=== PATIENT | male | born 1940 | race Caucasian/White ===

== ENCOUNTER 2019-05-01 06:44 | Inpatient (IN) | payer MEDICARE, SELFPAY ==
[2019-05-01] VITALS (15 sets, daily range): BP systolic 91–130; BP diastolic 51–78; PULSE 68–139; RESP 15–20; TEMP 36.4–36.9; O2SAT 88–98; BMI 41.6; BMI 40.5; BMI 40.6
--- NOTE | 2019-05-01 06:47 | EKG12_ITS ---
Test Reason : SOB Blood Pressure : / mmHG Vent. Rate : 087 BPM Atrial Rate : 087 BPM P-R Int : 152 ms QRS Dur : 096 ms QT Int : 372 ms P-R-T Axes : 000 -10 068 degrees QTc Int : 447 ms Sinus rhythm with Premature atrial complexes Otherwise normal ECG Confirmed by TYRONE OROZCO, PEDRO ([id number]), features editor CLIFTON SHELDON ([id number]) on 05/03/2019 10:02:20 AM Referred By: Liliya Pérez Confirmed By:PEDRO HANSEN MD
--- NOTE | 2019-05-01 06:47 | RAD_ITS ---
STUDY: X-RAY CHEST REASON FOR EXAM: Male, 79 years old. sob, heart racing TECHNIQUE: Single AP portable view of the chest. COMPARISON: None. FINDINGS: The lungs are hypoinflated. Mild right basilar airspace disease. Elevated left hemidiaphragm with atelectasis. There is mild cardiac enlargement. Normal mediastinum and erin. Normal visualized pulmonary arteries. Normal visualized aortic arch and descending thoracic aorta. Normal visualized thoracic spine. Normal visualized ribs, clavicles, and shoulders. There is no demonstrated abnormality of the visualized soft tissue structures of the upper abdomen. RAD/Chest 1 View (Portable) IMPRESSION: Hypoinflated lungs. Right basilar airspace disease. Elevated left hemidiaphragm with left basilar atelectasis. Electronically Signed: Juan Pablo Randall DO at 8:12 EST Tel , Service support ,
--- NOTE | 2019-05-01 06:49 | ED.DCSUM_ITS ---
- ER Visit Summary Date of Service: 05/01/19 Chief Complaint: Intermittent cough with shortness of breath. Recent accelerated heart rate. Patient denies chest pain. History of Present Illness: The patient is a 79 M history of hypertension, CLL which is in remission and gout. He is on no blood thinners. Denies any recent travel or surgery. States over the last 3 to 4 days has had intermittent cough. Exertional shortness of breath but no chest pain whatsoever. And on the way to the hospital the paramedics found that he was in new onset A. fib. He has had irregular heartbeats before in the past but they have never caught or diagnosed him with A. fib. He denies any leg pain or swelling. No history of thyroid disease. Patient states he has had increased swelling primarily in his ankles and feet which he has had in the past and has been using his 's oxygen which helps him tremendously. Physical Examination: Older male no acute distress currently vital signs are stable afebrile. His initial blood pressure is 130/78. His pulse ox is 95% on room air no signs of hypoxia. H EENT exam unremarkable. Neck nontender. No lymphadenopathy. No thyromegaly. Lungs clear to auscultation bilaterally. Heart irregularly irregular rate about 85-90. No murmur. Chest were nontender. Abdomen soft nontender. Normal bowel sounds no peritoneal signs. Patient is moving all 4 extremities. Calves are nontender without edema or cords. Upper and lower extremities are neurovascular intact. Neurologically is awake and alert with no focal motor deficits. Answering questions and following commands. Test Results: Squad EKG shows suspected A. fib with irregular rhythm and lack of P waves there is significant artifact. A. fib with a heart rate of 96 with no acute signs of AL or ischemia. Emergency department EKG shows sinus rhythm with PACs. Clearly on the rhythm strip there is P waves. On the twelve-lead there is areas that look like sinus rhythm with PACs and other areas that are regular without PACs consistent with A. fib CBC normal white count 9. Hemoglobin 13. BMP is unremarkable with a normal gap and creatinine. INR is pending. TSH is normal at 1.3 and troponin is normal. Emergency Department Course and Treatment: Older male presents via squad. The paramedics EKG shows A. fib with a rate of around 96 bpm but no signs of AL nor ischemia. There is artifact because it is a transport EKG. Treatment Plan: Patient remains stable at 07 20 3 AM. He is doing well. His rate is primarily been in the 80s. It looks like he goes in and out of A. fib at times a sinus rhythm with PACs that are times the P waves appear to disappear and his rhythm becomes irregular. I will speak to the hospitalist the labs were not all back yet the patient be turned over to the a.m. physician to finish the disposition. Disposition: Admission Impression: New onset A. fib History of hypertension, gout and CLL in remission Pedal edema This note was generated with [employer] dictation software. It may contain incorrect words, spelling, and punctuation that were not noted in review of the chart prior to signing ED Disposition - Plan for ED Patient: Referrals: [facility] Doctor,Out of [Primary Care Provider] -
[2019-05-01 07:04] LABS: Absolute Lymphocyte Count 4.45 X10^3/uL (0.83-4.51); Absolute Neutrophil Count 3.8 X10^3/uL (2.0-7.7); Basophil# 0.03 X10^3/uL; Basophil% 0.3 % (0-1); Eosinophil# 0.12 X10^3/uL; Eosinophils% 1.3 % (0-5); Hematocrit 43.1 % (40-54); Hemoglobin 13.6 g/dL (13.0-16.5); Lymphocyte # 4.45 X10^3/ul (4.0); Lymphocyte % 48.6 % (19-41); Mean Corp Hgb Conc 31.6 g/dL (32-36); Mean Corpuscular Hgb 32.1 pg (27.0-32.0); Mean Corpuscular Volume 101.7 fL (80-94); Mean Platelet Vol. 10.4 fl (6.2-12.0); Monocyte% 7.7 % (0-10); NRBC Flagged by Analyzer 0 % (0-5); Neutrophil # 3.83 X10^3/uL (2.7-7.7); Neutrophil % 41.9 % (47-70); Platelet Count 139 K/mm3 (150-450); RBC Distribution Width CV 14.3 % (11.6-14.6); RBC Distribution Width SD 53.4 fl (35.1-43.9); Red Blood Count 4.24 M/mm3 (4.6-6.2); White Blood Count 9.2 K/mm3 (4.4-11.0)
[2019-05-01 07:26] LABS: Anion Gap 3 (5-15); BUN 15 mg/dL (7-18); BUN/Creat Ratio 15.9 RATIO (10-20); Calcium,Total 9.1 mg/dL (8.5-10.1); Chloride 107 mmol/L (98-107); Creatinine, Serum 0.94 mg/dL (0.70-1.30); EST Glomerular Filtration Rate 81 mL/min (>60); Est Glom Filt Rate - Afr Amer 99 mL/min (>60); Estimated Creatinine Clearance 59.63 ml/min; Glucose 93 mg/dL (74-106); Potassium 4.2 mmol/L (3.5-5.1); Sodium Level 144 mmol/L (136-145); Thyroid Stim Hormone (TSH) 1.43 uIU/mL (0.358-3.74)
[2019-05-01 07:42] LABS: Prothrombin Time (Protime)PT. 13.3 SECONDS (11.7-14.9)
--- NOTE | 2019-05-01 09:22 | ECHOCS_ITS ---
Reason For Study: Afib, Aflutter Procedure This was a 2D Doppler, Color Flow transthoracic echocardiogram. The study was technically difficult. Contrast injection was performed. Exam performed portable in patient room. Left Ventricle Based upon the 2D echocardiographic and contrast enhanced images obtained there appears to be grossly normal left ventricular size, wall motion, and systolic function. The estimated ejection fraction is 55 %. Unable to assess diastolic dysfunction. Right Ventricle Based upon the 2D echocardiographic images obtained there appears to be grossly normal right ventricular size and systolic function. Atria The left atrium is mildly enlarged. Normal right atrium. No doppler evidence for ASD. Mitral Valve There is mild mitral annular calcification. Mitral valve not well visualized. Trivial mitral valve insufficiency. Tricuspid Valve The tricuspid valve is not well visualized. Trivial tricuspid valve insufficiency. Unable to estimate RV systolic pressure/pulmonary artery pressure due to technically difficult study. Aortic Valve The aortic valve is not well visualized. Mild focal aortic valve calcification. Pulmonic Valve The pulmonic valve is not well visualized. Great Vessels Normal sized aortic root. Pericardium/Pleural No pericardial effusion. Medication Diluted definity 4ml given slow IV push to enhance endocardial definition. MMode/2D Measurements & Calculations LVIDd: 5.3 cm IVSd: 1.2 cm Ao root diam: 3.3 cm LVIDs: 3.9 cm LVPWd: 1.2 cm FS: 26.1 % LAV(MOD-bp): 78.3 ml LA A4 area: 23.3 cm2 LA dimension(2D): 4.7 cm LAV(MOD-bp) Indexed: 33.9 ml/m2 LAV(MOD-sp2): 84.9 ml LAV(MOD-sp4): 71.7 ml Doppler Measurements & Calculations MV E max stevo: 97.9 cm/sec Lat Peak E' Stevo: 8.1 cm/sec Med Peak E' Stevo: 7.0 cm/sec E/E' lat: 12.1 E/E' med: 14.0 Ao V2 max: 147.3 cm/sec LV V1 max: 116.3 cm/sec PA V2 max: 103.1 cm/sec Ao max P.7 mmHg LV V1 max P.4 mmHg Ao V2 mean: 99.7 cm/sec Ao mean P.5 mmHg Ao V2 VTI: 24.0 cm Interpretation Summary The study was technically difficult. Contrast injection was performed. Based upon the 2D echocardiographic and contrast enhanced images obtained there appears to be grossly normal left ventricular size, wall motion, and systolic function. The estimated ejection fraction is 55 %. The left atrium is mildly enlarged. There is mild mitral annular calcification. Trivial mitral valve insufficiency. Trivial tricuspid valve insufficiency. Mild focal aortic valve calcification. Unable to estimate RV systolic pressure/pulmonary artery pressure due to technically difficult study. Unable to assess diastolic dysfunction. Ordering Physician: Liliya Pérez Referring Physician: Liilya Pérez Performed By: Angeline Lynne, PEDRO LUIS, RVT
[2019-05-01 09:41] LABS: Magnesium 2.2 mg/dL (1.6-2.6)
[2019-05-01 09:58] LABS: BNP,B-Type NATRIURETIC PEPTIDE 142.9 pg/mL (0-100)
--- NOTE | 2019-05-01 10:44 | PCM.HP.STD ---
Problem List (1) Acute CHF (congestive heart failure) Status: Acute (2) Paroxysmal A-fib Status: Suspected (3) Chronic congestive heart failure Status: Chronic (4) Gout Status: Chronic (5) Chronic lymphoid leukemia in remission Status: Chronic (6) Benign hypertension Status: Chronic History of Present Illness Date of Admission: 05/01/19 Chief Complaint: Shortness of breath. The patient is a 79 year old M patient with past medical history as mentioned above presented to the emergency because of shortness of breath, high pulse rate and low pulse ox. Patient stated that his symptoms started around 5 days ago with shortness of breath, it comes on with moderate activity, aggravated by more activity, relieved by rest and by using his 's oxygen, associated with mild dry cough without sputum production as well as increasing bilateral leg edema. He mentioned in the last couple of days, he has been getting short of breath even at rest and his legs continue to swell up. Patient mentioned that he lives with his at the assisted living and he has been monitoring his vital signs and pulse oximeter. He mentioned that when he gets short of breath, his pulse ox is in the high 80s percent, the lowest was 80% on room air. He has been using his 's oxygen and he feels better. He stated that his heart rate has been fluctuating significantly when he gets short of breath, it goes up to 147/min and goes down to 40s per minute. He reported intermittent dizzy spells but he denied syncope or presyncope. He denied chest pain or palpitation. In the emergency department, his vital signs are stable, he required small amount of oxygen at 1.5 L and his pulse ox was 94%. His routine blood work was remarkable for platelet count of 139,000, otherwise normal. EKG that was done by squad revealed A. fib, no P waves and looked irregular. EKG that was done in the ED revealed normal sinus rhythm with PACs, no acute segment changes. His troponin was negative. BNP was elevated at 142. TSH was normal. Chest x-ray revealed cardiomegaly, elevated right hemidiaphragm and pulmonary vascular congestion. He is being admitted for acute CHF and cardiac arrhythmia probably new onset paroxysmal atrial fibrillation. Past Medical History Past Medical History (Chronic Problems): Chronic Problems Chronic congestive heart failure (Chronic) Obesity (Chronic) Gout (Chronic) Chronic lymphoid leukemia in remission (Chronic) Benign hypertension (Chronic) Allergies Penicillins Allergy (Severe, Verified 05/01/19 06:48) Hives Home Medications: Ambulatory Orders Medication Instructions Recorded Allopurinol [Zyloprim] 200 mg PO DAILY 01/17/13 Cyanocobalamin (Vitamin B-12) 100 mcg SL DAILY 01/17/13 [B-12] Furosemide [Lasix] 20 mg PO DAILY 01/17/13 Lisinopril [Zestril] 10 mg PO DAILY 01/17/13 Metoprolol Tartrate [Lopressor] 25 mg PO BID 01/17/13 Multivitamins,Therapeutic 1 tablet PO DAILY@0800 #30 tablet 01/20/13 [Multivitamin] Albuterol Aerosols [Ventolin 2.5 mg INHALATION BID PRN PRN 05/01/19 Aerosols] Cholecalciferol (Vitamin D3) 2,000 unit PO DAILY 05/01/19 [Vitamin D3] Fluticasone 0.05% [Flonase Nasal 1 spray NASAL DAILY 05/01/19 [place]] Surgical History: total knee arthroplasty, - - Amputation of the left great toe. Psychiatric History: No pertinent psych hx Lives: - - Lives with at the assisted living. Smoking Status: Former smoker Alcohol: Occasional Drugs: None - *Family History Maternal History Items: No pertinent history Paternal History Items: No pertinent history Review of Systems Constitutional: Reports: Weakness. Denies: Anorexia, Chills, Fever Eyes: Denies: Blurred vision, Double vision, Drainage, Redness HEENT: Denies: Difficulty Hearing, Ear Pain, Eye Pain, Nasal Congestion, Sore Throat Cardiovascular: Reports: Edema, Light Headedness. Denies: Chest Pain, Chest Pressure, Chest Tightness, Heaviness, Orthopnea, Palpitations, Paroxysmal Noc. Dyspnea, Syncope Respiratory: Reports: Cough, Shortness of Breath, Shortness of breath at rest, Shortness of breath upon exertion. Denies: Pleuritic Pain, Sputum production, Wheezing Gastrointestinal: Denies: Abdominal Pain, Constipation, Diarrhea, Nausea, Vomiting Genitourinary: Denies: Dysuria, Frequency, Hematuria Musculoskeletal: Denies: Arm Pain, Back Pain, Foot Pain Skin: Denies: Dryness, Rash Neurological: Denies: Balance problems, Double vision, Change in Speech, Headaches, Incoordination, Numbness Psychiatric: Denies: Anxiety, Depression Endocrine: Denies: Change in Body Habitus, Polydipsia, Polyuria VTE Information - Inpt Only VTE Present on Admission: No VTE Mechan Device Prophylaxis: None VTE Pharm Prophylaxis ordered?: No Patient Problems: Active and Suspected Problems Acute CHF (congestive heart failure) (Acute) Paroxysmal A-fib (Suspected) - Physical Exam Vitals/I&O's: Vital Signs Temp Pulse Resp BP Pulse Ox 97.5 F L 73 20 H 127/74 H 94 05/01/19 09:32 05/01/19 09:32 05/01/19 09:32 05/01/19 09:32 05/01/19 09:32 Oxygen Flow Rate (L/min) 1.5 Oxygen Delivery Method Nasal Cannula Weight: 266 lb 12.149 oz Body Mass Index (BMI) 40.5 General: Alert, Oriented x3, Cooperative, - - Minimally short of breath. HEENT: Atraumatic, PERRLA, EOMI, Normocephalic Oral: Moist Mucosa, No Gingival or Mucosal Lesions/ Ulcerations Neck: Supple, No JVD, Negative Carotid Bruits, Trachea Midline, Thyroid Normal Size and Texture Lungs: No rhonchi, No wheeze, Diminished, Rales, Short of Breath, - - Markedly decreased breath sounds bilateral, faint crackles. Cardiovascular: Normal S1, Normal S2, No murmurs, PMI Normal, Irregular Rate Abdomen: Bowel Sounds Present, Soft, Non Tender, Non-Distended, No Hepato-splenomegaly, Obese Extremities: No clubbing, No cyanosis, Edema - + Edema. Skin: No rashes, No breakdown Lymphatic: No Cervical, Supraclavicular, or Inguinal Adenopathy Neurological: Cranial nerves II-XII grossly intact, Motor Exam 5/5 strength throughout Psych/Mental Status: Normal Affect, Appropriate, Alert and oriented to time, place, person, mood and affect Laboratory Results 05/01/19 06:50: WBC 9.2, RBC 4.24 L, Hgb 13.6, Hct 43.1, MCV 101.7 H, MCH 32.1 H, MCHC 31.6 L, RDW Std Deviation 53.4 H, RDW Coeff of Timothy 14.3, Plt Count 139 L, MPV 10.4, Immature Gran % (Auto) 0.200, Neut % (Auto) 41.9 L, Lymph % (Auto) 48.6 H, [place] % (Auto) 7.7, Eos % (Auto) 1.3, Baso % (Auto) 0.3, Absolute Neuts (auto) 3.8, Absolute Lymphs (auto) 4.45, Nucleated RBC % 0 05/01/19 06:50: PT 13.3, INR 1.0 05/01/19 06:50: Sodium 144, Potassium 4.2, Chloride 107, Carbon Dioxide 34.0 H, Anion Gap 3 L, BUN 15, Creatinine 0.94, Estim Creat Clear Calc 59.63, Est GFR (MDRD) Af Amer 99, Est GFR (MDRD) Non-Af 81, BUN/Creatinine Ratio 15.9, Glucose 93, Calcium 9.1, Troponin I < 0.015, TSH 1.43 05/01/19 06:50: Magnesium 2.2 05/01/19 06:50: B-Natriuretic Peptide 142.9 H 05/01/19 10:12: Troponin I < 0.015 Clinical Impression(s) from Imaging Studies Chest X-Ray 05/01/19 06:47 IMPRESSION: Hypoinflated lungs. Right basilar airspace disease. Elevated left hemidiaphragm with left basilar atelectasis. Electronically Signed: Juan Pablo Randall DO at 8:12 EST Tel , Service support , Current Medications Acetaminophen (Tylenol) 650 mg PO Q6H PRN PRN PRN Reason: Pain Score 1-3/Temp > 100.7 F Allopurinol (Zyloprim) 100 mg PO DAILY JEROME Furosemide (Lasix) 40 mg IV BID@1000,1800 JEROME Sodium Chloride () 250 mls @ 15 mls/hr IV .[id number] PRN PRN Reason: Saline Flush Sodium Chloride () 250 mls @ 15 mls/hr IV .[id number] PRN PRN Reason: Additional IVPB Infusion Lisinopril (Zestril) 10 mg PO DAILY JEROME Metoprolol Tartrate (Lopressor (Beta Mike)) 50 mg PO BID JEROME Ondansetron HCl (Zofran) 4 mg IV Q8H PRN PRN PRN Reason: NAUSEA/VOMITING Senna/Docusate Sodium (Senokot-S, Evelyn-Colace) 2 tablet PO BID PRN PRN PRN Reason: Constipation Sodium Chloride () 10 - 40 ml IV UD PRN PRN Reason: SALINE FLUSH Zolpidem Tartrate (Ambien (Generic)) 5 mg PO QHS PRN PRN PRN Reason: INSOMNIA Assessment/Plan All Active Problems Acute CHF (congestive heart failure) (Acute) This is an 79 years old male patient presented to the emergency room because of exertional shortness of breath, low pulse oximeter and fast heart rate, found to have acute CHF in addition to suspected paroxysmal atrial fibrillation and he is being admitted for evaluation and treatment. #1 acute on chronic congestive heart failure: Unspecified. This is based on symptoms of exertional shortness of breath, leg edema, chest x-ray findings and elevated BNP as well as history of chronic CHF. Chest x-ray reviewed as well as EKG. Troponin is negative. Plan: Admit to PCU, cardiac monitoring, serial cardiac enzymes, repeat EKG tomorrow morning, 2D echocardiogram, start IV Lasix for diuresis, continue lisinopril, increase metoprolol to 50 mg p.o. twice daily, input output chart, fluid restriction to less than 1500 cc daily, cardiology consult, PT OT evaluation and treatment. #2 cardiac arrhythmia/suspected new onset paroxysmal atrial fibrillation: Both EKG that was done by squad as well as in the ED reviewed. EKG from the ED revealed normal sinus rhythm. Patient has been having excellent heart rate, it goes up to 147 and down to 40s on pulse oximeter at home. Plan: Cardiac monitoring, repeat EKG tomorrow morning, 2D echocardiogram, metoprolol 50 mg p.o. twice daily for rate control, start Lovenox twice daily for anticoagulation, check serum magnesium. #3 hypertension: Blood pressure stable, continue lisinopril and metoprolol as above, IV Lasix as above. 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 #6 chronic lymphocytic leukemia: In remission, stable. Platelet count is 139,000, other blood counts are normal. #7 DVT prophylaxis: Patient will be on therapeutic Lovenox twice daily. This note was generated with Dragon dictation software. It may contain incorrect words, spelling, and punctuation that were not noted in checking the note before signing. Code Visit Inpatient E&M: 87745 Init Hosp L3
[2019-05-01] MEDS: 0.9% Saline Lock 10 ML Syringe IV ×2 (10:59→17:05)
[2019-05-01] MEDS: Furosemide 40 MG/4 ML Vial IV ×2 (10:59→17:05)
[2019-05-01] MEDS: Lisinopril 10 MG Tablet PO (10:59)
[2019-05-01] MEDS: Metoprolol Tartrate 50 MG Tablet PO ×2 (10:59→21:19)
[2019-05-01] MEDS: Enoxaparin 120 MG/0.8 ML Syringe SC ×2 (13:36→21:19)
--- NOTE | 2019-05-01 14:09 | CON.PCM_ITS ---
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 The patient believes he was evaluated in the hospital in the past by Dr. Kraus. To the best of his knowledge he recalls a noninvasive evaluation and medical treatment. He states he has had no outpatient cardiovascular follow-up since that time. He states he does have an outpatient cardiovascular appointment to see Dr. Kraus later this month. In the meantime he states he has been noticing episodes at home, when using his 's O2 monitor, of having intermittent episodes of rapid heart rates and decreased oxygen status. He states he has borrowed his 's oxygen at home which helps his heart rate and his oxygen level and helps him feel better. Based upon his ongoing issues he presented to the emergency department for further evaluation and care. He was brought to the hospital by the EMS system and per the medical records available for review was reported by the EMS system of having documentation of paroxysmal atrial fibrillation. He states he was unable to sense his heart rate change. He notes his main complaint has been shortness of breath and dyspnea both at rest and with exertion. He is also noted worsening lower extremity peripheral pitting edema. He denies any chest discomfort and states he has had no near syncope or syncope. He has had cardiac enzymes performed. They have been negative. A BNP level was elevated at approximately 142. An ECG demonstrated sinus rhythm with PACs. His chest x-ray suggested on preliminary evaluation diminished inspiratory effort and an elevated left hemidiaphragm. There was some concern of potential increased pulmonary vascularity. He has been placed on medical management has included rate control therapy, diuretic therapy, and anticoagulant therapy with subcutaneous Lovenox. [] Past Medical History Allergies/Adverse Reactions: Allergies Penicillins Allergy (Severe, Verified 05/01/19 06:48) Hives Home Medications: Ambulatory Orders Medication Instructions Recorded Allopurinol [Zyloprim] 200 mg PO DAILY 01/17/13 Cyanocobalamin (Vitamin B-12) 100 mcg SL DAILY 01/17/13 [B-12] Furosemide [Lasix] 20 mg PO DAILY 01/17/13 Lisinopril [Zestril] 10 mg PO DAILY 01/17/13 Metoprolol Tartrate [Lopressor] 25 mg PO BID 01/17/13 Multivitamins,Therapeutic 1 tablet PO DAILY@0800 #30 tablet 01/20/13 [Multivitamin] Albuterol Aerosols [Ventolin 2.5 mg INHALATION BID PRN PRN 05/01/19 Aerosols] Cholecalciferol (Vitamin D3) 2,000 unit PO DAILY 05/01/19 [Vitamin D3] Fluticasone 0.05% [Flonase Nasal 1 spray NASAL DAILY 05/01/19 [place]] Past Medical History (Chronic Problems): Chronic Problems Chronic congestive heart failure (Chronic) Obesity (Chronic) Gout (Chronic) Chronic lymphoid leukemia in remission (Chronic) Benign hypertension (Chronic) Surgical History: total knee arthroplasty, - - Amputation of the left great toe. Psychiatric History: No pertinent psych hx - *Family History Maternal History Items: No pertinent history Paternal History Items: No pertinent history Lives: Spouse/ Significant Other, - - Lives with at the assisted living. Smoking Status: Former smoker Alcohol: Occasional Drugs: None Review of Systems - Review of Systems General: Denies: Fever, Night Sweats, Fatigue Cardiovascular: Reports: Shortness of Breath, Shortness of Breath at Rest, Shortness of Breath with Exertion, Peripheral Edema. Denies: Chest Discomfort, Orthopnea, PND, Palpitations, Lightheadedness, Dizziness, Near Syncope, Syncope Respiratory: Reports: Shortness of Breath. Denies: Cough, Sputum Production, Hemoptysis Gastrointestinal: Denies: Hematemesis, Hematochezia, Melena Genitourinary: Denies: Dysuria, Hematuria Objective: Vital Signs Temp Pulse Resp BP Pulse Ox 97.5 F L 86 20 H 127/74 H 92 05/01/19 09:32 05/01/19 11:05 05/01/19 09:32 05/01/19 09:32 05/01/19 12:02 Oxygen Flow Rate (L/min) 2 Oxygen Delivery Method Nasal Cannula Weight: 266 lb 12.149 oz Body Mass Index (BMI) 40.5 Intake and Output for Last 24 Hours 04/29/19 04/30/19 05/01/19 23:59 23:59 23:59 Intake Total 240 / 240 Output Total 200 / 200 Balance 40 / 40 05/01/19 06:50: WBC 9.2, RBC 4.24 L, Hgb 13.6, Hct 43.1, MCV 101.7 H, MCH 32.1 H , MCHC 31.6 L, Plt Count 139 L, MPV 10.4, Immature Gran % (Auto) 0.200, Neut % (Auto) 41.9 L, Lymph % (Auto) 48.6 H, [place] % (Auto) 7.7, Eos % (Auto) 1.3, Baso % (Auto) 0.3, Absolute Neuts (auto) 3.8, Nucleated RBC % 0 05/01/19 06:50: PT 13.3, INR 1.0 05/01/19 06:50: Sodium 144, Potassium 4.2, Chloride 107, Carbon Dioxide 34.0 H, Anion Gap 3 L, BUN 15, Creatinine 0.94, Est GFR (MDRD) Af Amer 99, Est GFR (MDRD) Non-Af 81, BUN/Creatinine Ratio 15.9, Glucose 93, Calcium 9.1, Troponin I < 0.015 05/01/19 06:50: Magnesium 2.2 05/01/19 06:50: B-Natriuretic Peptide 142.9 H 05/01/19 10:12: Troponin I < 0.015 05/01/19 12:50: Troponin I < 0.015 Rhythm: Sinus rhythm; PACs EKG: As noted above CXR: As noted above: Please see official report Assessment/Plan 1. Atrial fibrillation The patient has been reported as having findings compatible with atrial fibrillation-paroxysmal. It is unclear as to the etiology although contributing factors may include the patient's age as well as a history of hypertension and previous cardiovascular disease superimposed upon other noncardiac related issues yet to be defined. At the present time he appears to be in sinus rhythm. He is continuing rate control therapy and anticoagulant therapy. Depending upon his clinical course he may need consideration for additional therapy such as antiarrhythmic therapy in an attempt to maintain sinus rhythm. He is continuing evaluation which will include a future echocardiogram to fur ther assess his cardiac anatomy and function. 2. Congestive heart failure The patient appears to have findings compatible with CHF. It is unclear at this time whether this is systolic or diastolic mediated. At the moment he is being followed. He has been placed on medical therapy with diuretic therapy. He will have an echocardiogram to further assess his left ventricular wall motion and systolic function as well as hopefully his diastolic function. As his clinical course progresses he may need further noninvasive or invasive cardiovascular evaluation-once he is able to lie supine and breathe comfortably. 3. Hypertension His blood pressure will be followed. His medications will be adjusted over time. 4. CLL He has a reported history of CLL-in remission. He will be followed by internal medicine for further evaluation care as needed. 5. Obesity Unfortunately he is obese. He has been counseled in the past on dietary measures and activity measures as well as control of his other medical conditions to try and bring his weight under better control. Comment: The patient's case was discussed and reviewed with the patient, his family members present, and Dr. Pérez. This note was generated using a voice recognition system and there may be incorrect words, spelling or punctuation that were not noted when reviewing the office note prior to saving.
--- NOTE | 2019-05-01 23:17 | NURSING ---
MONITOR ALARMING VTACH: PT ASLEEP IN BED, AROUSED EASILY TO VERBAL STIMULI AND DENIED C/O CP, PALPITATIONS OR SOB. 91/51, 68, 96% 2L N/C. AFIB
[2019-05-02] VITALS (16 sets, daily range): BP systolic 109–136; BP diastolic 55–80; PULSE 66–102; RESP 15–18; TEMP 36.5–37; O2SAT 92–97
--- NOTE | 2019-05-02 05:55 | EKG12_ITS ---
Test Reason : AM Blood Pressure : / mmHG Vent. Rate : 076 BPM Atrial Rate : 076 BPM P-R Int : 188 ms QRS Dur : 090 ms QT Int : 390 ms P-R-T Axes : 021 -02 062 degrees QTc Int : 438 ms Sinus rhythm with marked sinus arrhythmia Otherwise normal ECG When compared with ECG of 01-MAY-2019 06:53, MANUAL COMPARISON REQUIRED, DATA IS UNCONFIRMED Confirmed by TYRONE OROZCO, PEDRO ([id number]), legal editor CLIFTON SHELDON ([id number]) on 05/03/2019 10:37:45 AM Referred By: Liliya Pérez Confirmed By:PEDRO HANSEN MD
[2019-05-02 06:00] LABS: Absolute Lymphocyte Count 4.77 X10^3/uL (0.83-4.51); Absolute Neutrophil Count 3.8 X10^3/uL (2.0-7.7); Basophil# 0.02 X10^3/uL; Basophil% 0.2 % (0-1); Eosinophil# 0.15 X10^3/uL; Eosinophils% 1.6 % (0-5); Hematocrit 42.2 % (40-54); Hemoglobin 12.9 g/dL (13.0-16.5); Lymphocyte # 4.77 X10^3/ul (4.0); Lymphocyte % 49.9 % (19-41); Mean Corp Hgb Conc 30.6 g/dL (32-36); Mean Corpuscular Hgb 31.5 pg (27.0-32.0); Mean Corpuscular Volume 102.9 fL (80-94); Mean Platelet Vol. 9.9 fl (6.2-12.0); Monocyte# 0.81 X10^3/uL; Monocyte% 8.5 % (0-10); NRBC Flagged by Analyzer 0 % (0-5); Neutrophil # 3.76 X10^3/uL (2.7-7.7); Neutrophil % 39.4 % (47-70); Platelet Count 132 K/mm3 (150-450); RBC Distribution Width CV 14.3 % (11.6-14.6); RBC Distribution Width SD 54.1 fl (35.1-43.9); White Blood Count 9.6 K/mm3 (4.4-11.0)
[2019-05-02 06:42] LABS: AST(SGOT) 18 U/L (15-37); Alanine Aminotransfer ALT/SGPT 20 U/L (16-61); Alkaline Phosphatase 78 U/L (45-117); Anion Gap 3 (5-15); BUN 18 mg/dL (7-18); BUN/Creat Ratio 21.1 RATIO (10-20); Calcium,Total 9.1 mg/dL (8.5-10.1); Chloride 104 mmol/L (98-107); Cholesterol 151 mg/dL (200); Creatinine, Serum 0.86 mg/dL (0.70-1.30); EST Glomerular Filtration Rate 91 mL/min (>60); Est Glom Filt Rate - Afr Amer 111 mL/min (>60); Estimated Creatinine Clearance 65.17 ml/min; Globulin 3.2 g/dL (2.2-4.2); Glucose 89 mg/dL (74-106); High Density Lipoprotein 32 mg/dL; Magnesium 2.3 mg/dL (1.6-2.6); Potassium 3.9 mmol/L (3.5-5.1); Protein, Total 6.2 g/dL (6.4-8.2); Sodium Level 142 mmol/L (136-145); Triglycerides 146 mg/dL; Very Low Density Lipoprotein 29 mg/dL (5-40)
--- NOTE | 2019-05-02 07:45 | PN.CARD_ITS ---
Subjectve: Patient seen and evaluated. Appears to be doing quite well at this time. Objective: Vital Signs Temp Pulse Resp BP Pulse Ox 98.1 F 80 15 136/55 H 96 05/02/19 05:00 05/02/19 06:52 05/02/19 06:12 05/02/19 05:00 05/02/19 05:00 Oxygen Flow Rate (L/min) 2 Oxygen Delivery Method Nasal Cannula Weight: 266 lb 12.149 oz Body Mass Index (BMI) 40.5 Intake and Output for Last 24 Hours 04/30/19 05/01/19 05/02/19 23:59 23:59 23:59 Intake Total 480 / 680 440 / 440 Output Total 400 / 1500 1100 / 1100 Balance 80 / -820 -660 / -660 General: Awake, Alert, Oriented x 3 HEENT: PERRL, EOMI, Sclera Non Icteric Neck: Supple, Good ROM, No Lymph Node Enlargement Lungs: Clear to auscultation Cardiovascular: Regular Rhythm, Normal S1, Normal S2, No Murmurs, No Rubs, No Gallops Vascular: No Carotid Bruits, Normal Femoral Pulses, Normal Radial Pulses, Normal Dorsalis Pedal Pulse, Normal Posterior Tibial Pulses Abdomen: Bowel Sounds Present, Soft, Non Tender, No HSM, No Organomegaly Extremities: No Cyanosis, No Clubbing, No edema Musculoskeletal: No Erythema Skin: No Rashes Lymphatic: No Lymph Node Enlargement Neurological: No Focal Motor or Sensory Deficit Psych/Mental Status: Appropriate 05/01/19 06:50: Magnesium 2.2 05/01/19 06:50: B-Natriuretic Peptide 142.9 H 05/01/19 10:12: Troponin I < 0.015 05/01/19 12:50: Troponin I < 0.015 05/02/19 05:47: WBC 9.6, RBC 4.10 L, Hgb 12.9 L, Hct 42.2, MCV 102.9 H, MCH 31.5, MCHC 30.6 L, Plt Count 132 L, MPV 9.9, Immature Gran % (Auto) 0.400, Neut % (Auto) 39.4 L, Lymph % (Auto) 49.9 H, [place] % (Auto) 8.5, Eos % (Auto) 1.6, Baso % (Auto) 0.2, Absolute Neuts (auto) 3.8, Nucleated RBC % 0 05/02/19 05:47: Sodium 142, Potassium 3.9, Chloride 104, Carbon Dioxide 35.0 H, Anion Gap 3 L, BUN 18, Creatinine 0.86, Est GFR (MDRD) Af Amer 111, Est GFR (MDRD) Non-Af 91, BUN/Creatinine Ratio 21.1 H, Glucose 89, Calcium 9.1, Magnesium 2.3, Total Bilirubin 0.60, Direct Bilirubin 0.20, Triglycerides 146, Cholesterol 151, LDL Cholesterol 90, VLDL Cholesterol 29, HDL Cholesterol 32 L Rhythm: EKG: ECHO: Stress Test: Cardiac Cath: PCI: CT Surgery: Holter monitor: EPS: PPM: CXR: Chest CT Scan: Medical Necessity - Tobacco Use Smoking Status: Former smoker Assessment/Plan 1. Paroxysmal atrial fibrillation * Patient appears to have paroxysms of atrial fibrillation. My recommendation at this time will be to obtain an echocardiogram to assess his left ventricular function. * Would recommend anticoagulation as well as beta-yohan * Would also recommend that we place him on an antiarrhythmic with amiodarone 200 mg twice a day. * 2. Hypertension * His blood pressure appears to be under good control at this particular time and I would not recommend we make any other changes. * 3. Mild congestive heart failure * The above likely secondary to diastolic dysfunction as well as paroxysms of atrial fibrillation. * Would obtain echocardiogram * Continue beta-yohan * Diuresis with oral Lasix * Attempt to maintain sinus rhythm. Depending on his response to the above further recommendations will be made. He may need at some point to undergo a pharmacologic myocardial perfusion stress test. * * Thank you for allowing me to participate in the care of your patient. Please don't hesitate to call if any issues arise
--- NOTE | 2019-05-02 08:57 | PN_ITS ---
Patient Problems: Active and Suspected Problems Acute CHF (congestive heart failure) (Acute) Paroxysmal A-fib (Suspected) Subjective: Chief complaint: Follow-up after admission for new onset paroxysmal A. fib and acute probably diastolic CHF. Patient seen and examined. No acute events overnight. Shortness of breath improved, denies chest pain. Denied palpitation, dizziness or lightheadedness. He has been ambulating without any symptoms. Remained on oxygen, other vital signs are stable. - Physical Exam Vitals/I&O's: Vital Signs Temp Pulse Resp BP Pulse Ox 98.1 F 80 15 136/55 H 97 05/02/19 05:00 05/02/19 06:52 05/02/19 06:12 05/02/19 05:00 05/02/19 08:05 Oxygen Flow Rate (L/min) 2 Oxygen Delivery Method Nasal Cannula Weight: 266 lb 12.149 oz Body Mass Index (BMI) 40.5 Intake and Output for Last 24 Hours 04/30/19 05/01/19 05/02/19 23:59 23:59 23:59 Intake Total 480 / 680 440 / 440 Output Total 400 / 1500 1100 / 1100 Balance 80 / -820 -660 / -660 General: Alert, Oriented x3, Cooperative, No apparent distress HEENT: Atraumatic, PERRLA, EOMI, Normocephalic Oral: Moist Mucosa, No Gingival or Mucosal Lesions/ Ulcerations Neck: Supple, No JVD, Negative Carotid Bruits, Trachea Midline, Thyroid Normal Size and Texture Lungs: Normal air movement, No rhonchi, No wheeze, Diminished, Rales, - - Decreased breath sounds bilateral at the bases, bilateral basal faint crackles. Cardiovascular: Regular rate, Regular Rhythm, Normal S1, Normal S2, PMI Normal Abdomen: Bowel Sounds Present, Soft, Non Tender, Non-Distended, No Hepato- splenomegaly, Obese Extremities: No clubbing, No cyanosis, Edema - ++ Edema. Skin: No rashes, No breakdown Lymphatic: No Cervical, Supraclavicular, or Inguinal Adenopathy Neurological: Cranial nerves II-XII grossly intact, Neuro grossly intact Psych/Mental Status: Normal Affect, Appropriate, Alert and oriented to time, place, person, mood and affect Laboratory Results 05/01/19 06:50: Magnesium 2.2 05/01/19 06:50: B-Natriuretic Peptide 142.9 H 05/01/19 10:12: Troponin I < 0.015 05/01/19 12:50: Troponin I < 0.015 05/02/19 05:47: WBC 9.6, RBC 4.10 L, Hgb 12.9 L, Hct 42.2, MCV 102.9 H, MCH 31.5, MCHC 30.6 L, RDW Std Deviation 54.1 H, RDW Coeff of Timothy 14.3, Plt Count 132 L, MPV 9.9, Immature Gran % (Auto) 0.400, Neut % (Auto) 39.4 L, Lymph % (Auto) 49.9 H, [place] % (Auto) 8.5, Eos % (Auto) 1.6, Baso % (Auto) 0.2, Absolute Neuts (auto) 3.8, Absolute Lymphs (auto) 4.77 H, Nucleated RBC % 0 05/02/19 05:47: Sodium 142, Potassium 3.9, Chloride 104, Carbon Dioxide 35.0 H, Anion Gap 3 L, BUN 18, Creatinine 0.86, Estim Creat Clear Calc 65.17, Est GFR (MDRD) Af Amer 111, Est GFR (MDRD) Non-Af 91, BUN/Creatinine Ratio 21.1 H, Glucose 89, Calcium 9.1, Magnesium 2.3, Total Bilirubin 0.60, Direct Bilirubin 0.20, AST 18, ALT 20, Alkaline Phosphatase 78, Total Protein 6.2 L, Albumin 3.0 L, Globulin 3.2, Triglycerides 146, Cholesterol 151, LDL Cholesterol 90, VLDL Cholesterol 29, HDL Cholesterol 32 L Current Medications Acetaminophen (Tylenol) 650 mg PO Q6H PRN PRN PRN Reason: Pain Score 1-3/Temp > 100.7 F Allopurinol (Zyloprim) 100 mg PO DAILY [facility] Amiodarone HCl (Cordarone) 200 mg PO BID J[facility] Apixaban (Eliquis) 2.5 mg PO BID [facility] Aspirin (Aspirin, Baby) 81 mg PO DAILY@0800 [facility] Furosemide (Lasix) 40 mg IV BID@1000,1800 [facility] Last Admin: 05/01/19 17:05 Dose: 40 mg Documented by: Sodium Chloride () 250 mls @ 15 mls/hr IV .[id number] PRN PRN Reason: Saline Flush Sodium Chloride () 250 mls @ 15 mls/hr IV .[id number] PRN PRN Reason: Additional IVPB Infusion Lisinopril (Zestril) 10 mg PO DAILY [facility] Last Admin: 05/01/19 10:59 Dose: 10 mg Documented by: Metoprolol Tartrate (Lopressor (Beta Mike)) 50 mg PO BID [facility] Last Admin: 05/01/19 21:19 Dose: 50 mg Documented by: Ondansetron HCl (Zofran) 4 mg IV Q8H PRN PRN PRN Reason: NAUSEA/VOMITING Senna/Docusate Sodium (Senokot-S, Evelyn-Colace) 2 tablet PO BID PRN PRN PRN Reason: Constipation Sodium Chloride () 10 - 40 ml IV UD PRN PRN Reason: SALINE FLUSH Last Admin: 05/01/19 17:05 Dose: 10 ml Documented by: Zolpidem Tartrate (Ambien (Generic)) 5 mg PO QHS PRN PRN PRN Reason: INSOMNIA Medical Necessity - Tobacco Use Smoking Status: Former smoker Assessment/Plan All Active Problems Acute CHF (congestive heart failure) (Acute) This is an 79 years old male patient presented to the emergency room because of exertional shortness of breath, low pulse oximeter and fast heart rate, found to have acute CHF in addition to suspected paroxysmal atrial fibrillation and he is being admitted for evaluation and treatment. #1 acute on chronic probably diastolic congestive heart failure: He is on IV Lasix, on metoprolol and lisinopril. Returning back to sinus rhythm, rate is controlled, blood pressure stable. Remains on 2 L of oxygen. Troponin is negative. Serum electrolytes and TSH were normal. 2D echocardiogram ordered. Cardiology on the case. Plan to continue IV diuresis, repeat BMP tomorrow morning. #2 new onset paroxysmal atrial fibrillation: Today, rate is controlled, blood pressure stable. He is on metoprolol, started on amiodarone for rate control and on Eliquis for anticoagulation. Serum sodium, potassium and magnesium were normal. TSH was normal. 2D echocardiogram ordered. #3 hypertension: Blood pressure stable, continue lisinopril and metoprolol as above, IV Lasix as above. 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 #6 chronic lymphocytic leukemia: In remission, stable. Platelet count is 132,000 today, other blood counts are normal. #7 DVT prophylaxis: Continue Eliquis. This note was generated with POIation software. It may contain incorrect words, spelling, and punctuation that were not noted in checking the note before signing. Code Visit Inpatient E&M: 55898 Subs Hosp L2
[2019-05-02] MEDS: Metoprolol Tartrate 50 MG Tablet PO ×2 (09:35→22:23)
[2019-05-02] MEDS: Furosemide 40 MG/4 ML Vial IV ×2 (09:35→17:20)
[2019-05-02] MEDS: Amiodarone 200 MG Tablet PO ×2 (09:35→22:23)
[2019-05-02] MEDS: Aspirin 81 MG TAB.CHEW PO (09:35)
[2019-05-02] MEDS: Lisinopril 10 MG Tablet PO (09:35)
[2019-05-02] MEDS: Allopurinol 100 MG Tablet PO (09:35)
[2019-05-02] MEDS: 0.9% Saline Lock 10 ML Syringe IV ×2 (09:41→17:20)
[2019-05-02] MEDS: APIXABAN 2.5 MG TABLET PO ×2 (10:48→22:24)
--- NOTE | 2019-05-02 12:37 | CASEMGMT ---
RN CM Assessment Introduced role of RN CM to patient, patient sitting in chair at bedside.? Patient is alert, oriented and able?to participate in RN CM Assessment. ?Care providers, pharmacy, and demographics verified. Presentation: SOB, high pulse rate, low pulse ox Admit Dx: Suspect new onset Afib Re-Admit: No Barriers/Issues: None PCP: Alina Cunha, states he sees the DISTILLERY MILLER Eliane Odom and she comes to [facility] on a weekly bases Specialists: Cardio- Dr Kraus- Has an appointment on May 11, 2019 (1st appointment, seen Dr Kraus in the hospital x6yrs ago) Preferred Pharmacy: The pharmacy they use at [facility]. States Heavy Equipment Operator at [facility] is Felipa Mccurdy. Insurance: [email or web address] Rx Benefit:?Yes ?LNOK: Anitha Cunha LW/HPOA: Yes both on file at [facility], HPOA- Anitha Cunha Living Arrangements:? Lives with at [facility], [facility] apartment with elevator. ADL?s: Independent with ambulation and ADLs Transportation: Patient drives and denies any transportation issues, states his does not drive DME: Nebulizer, Walk in shower. States his has a bunch of other DME that he could use if he needed. HHC: None SNF: Past at [facility] Goal: Home and not sure of any needs at DC. DME list given, preference per [facility] would be [facility] if home oxygen is needed. Denies any issues, concerns, needs or questions with DC planning at this time. Aware CM remains available for any emerging needs. DC PLAN: Home with possible Home O2, Eliquis coupon card given to patient. Bobby Teresa RNCM
--- NOTE | 2019-05-02 14:26 | CASEMGMT ---
Patient is from [facility]. SW spoke with patient and asked if he needed a ride back to [place]. He said it depends on when they discharge him, but the next 3 days he probably has a ride home. TERRANCE to follow for d/c back to [place]. Shy REINA MSW
[2019-05-03] VITALS (8 sets, daily range): BP systolic 99–119; BP diastolic 49–63; PULSE 58–76; RESP 16; TEMP 36.5–36.8; O2SAT 90–98
[2019-05-03 07:37] LABS: Anion Gap 2 (5-15); BUN 22 mg/dL (7-18); BUN/Creat Ratio 25.9 RATIO (10-20); Calcium,Total 8.9 mg/dL (8.5-10.1); Chloride 102 mmol/L (98-107); Creatinine, Serum 0.85 mg/dL (0.70-1.30); EST Glomerular Filtration Rate 92 mL/min (>60); Est Glom Filt Rate - Afr Amer 111 mL/min (>60); Estimated Creatinine Clearance 65.94 ml/min; Glucose 86 mg/dL (74-106); Potassium 3.8 mmol/L (3.5-5.1); Sodium Level 142 mmol/L (136-145)
--- NOTE | 2019-05-03 07:51 | PN.CARD_ITS ---
Subjectve: Patient seen and evaluated. Appears to be doing better. Objective: Vital Signs Temp Pulse Resp BP Pulse Ox 98.2 F 58 L 16 101/49 L 96 05/03/19 05:15 05/03/19 06:59 05/03/19 05:15 05/03/19 05:15 05/03/19 05:15 Oxygen Flow Rate (L/min) 2 Oxygen Delivery Method Nasal Cannula Weight: 266 lb 12.149 oz Body Mass Index (BMI) 40.5 Intake and Output for Last 24 Hours 05/01/19 05/02/19 05/03/19 23:59 23:59 23:59 Intake Total 480 / 680 880 / 1000 120 / 120 Output Total 400 / 1500 2375 / 2925 550 / 550 Balance 80 / -820 -1495 / -1925 -430 / -430 General: Awake, Alert, Oriented x 3 HEENT: PERRL, EOMI, Sclera Non Icteric Neck: Supple, Good ROM, No Lymph Node Enlargement Lungs: Diminished Reymundo Bases Cardiovascular: Regular Rhythm, Normal S1, Normal S2, No Murmurs, No Rubs, No Gallops Vascular: No Carotid Bruits, Normal Femoral Pulses, Normal Radial Pulses, Normal Dorsalis Pedal Pulse, Normal Posterior Tibial Pulses Abdomen: Bowel Sounds Present, Soft, Non Tender, No HSM, No Organomegaly Extremities: No Cyanosis, No Clubbing, No edema Musculoskeletal: No Erythema Skin: No Rashes Lymphatic: No Lymph Node Enlargement Neurological: No Focal Motor or Sensory Deficit Psych/Mental Status: Appropriate 05/03/19 06:19: Sodium 142, Potassium 3.8, Chloride 102, Carbon Dioxide 38.0 H, Anion Gap 2 L, BUN 22 H, Creatinine 0.85, Est GFR (MDRD) Af Amer 111, Est GFR (MDRD) Non-Af 92, BUN/Creatinine Ratio 25.9 H, Glucose 86, Calcium 8.9 Rhythm: EKG: ECHO: Stress Test: Cardiac Cath: PCI: CT Surgery: Holter monitor: EPS: PPM: CXR: Chest CT Scan: Medical Necessity - Tobacco Use Smoking Status: Former smoker Assessment/Plan 1. Paroxysmal atrial fibrillation * Patient appears to have paroxysms of atrial fibrillation. * His echocardiogram which was suboptimal demonstrated overall preserved left ventricular systolic function. * Would recommend anticoagulation as well as beta-yohan * Would also recommend that we place him on an antiarrhythmic with amiodarone 200 mg twice a day. * 2. Hypertension * His blood pressure appears to be under good control at this particular time and I would not recommend we make any other changes. * 3. Mild congestive heart failure * The above likely secondary to diastolic dysfunction as well as paroxysms of atrial fibrillation. * Echocardiogram demonstrated preserved left ventricular systolic function. * Continue beta-yohan * Diuresis with oral Lasix * Attempt to maintain sinus rhythm. Depending on his response to the above further recommendations will be made. He may need at some point to undergo a pharmacologic myocardial perfusion stress test. This will be performed as an outpatient. * * From my standpoint he can probably be managed as an outpatient with the above medications. He has an appointment to see me on May 11. * * Thank you for allowing me to participate in the care of your patient. Please don't hesitate to call if any issues arise
[2019-05-03] MEDS: 0.9% Saline Lock 10 ML Syringe IV ×2 (08:16→10:13)
[2019-05-03] MEDS: Aspirin 81 MG TAB.CHEW PO (08:16)
--- NOTE | 2019-05-03 09:33 | CASEMGMT ---
TERRANCE called [facility] and let Ana know patient will be returning today. TERRANCE also let her know he may need home O2, which we will set up before he leaves. She asked that orders be faxed prior to patient returning. [facility] fax: [phone] Shy SHERMAN
--- NOTE | 2019-05-03 09:34 | PCM.DC ---
- Discharge Diagnoses Current Active Problems: Current Active and Chronic Problems Acute CHF (congestive heart failure) (Acute) Chronic congestive heart failure (Chronic) You will use the following diet at home:: Cardiac Your food should be the consistency of: Regular Discharge Activity: Return to Normal Activity Weight Bearing Status: Weight bearing as tolerated Call your doctor if you observe: Fever of 101 or Higher, Shortness of breath, Dizziness, Fainting spells, Chest pain, Increased palpitations (irregular heartbeat), Uncontrolled pain Instructions: Using Oxygen at Home, Heart Failure Allergies/Adverse Reactions: Allergies Penicillins Allergy (Severe, Verified 05/01/19 06:48) Hives Medications to take at Discharge Allopurinol [Zyloprim] 200 mg PO DAILY 01/17/13 Cyanocobalamin (Vitamin B-12) [B-12] 100 mcg SL DAILY 01/17/13 Lisinopril [Zestril] 10 mg PO DAILY 01/17/13 Multivitamins,Therapeutic [Multivitamin] 1 tablet PO DAILY@0800 #30 tablet 01/20/13 Albuterol Aerosols [Ventolin Aerosols] 2.5 mg INHALATION BID PRN PRN 05/01/19 Cholecalciferol (Vitamin D3) [Vitamin D3] 2,000 unit PO DAILY 05/01/19 Fluticasone 0.05% [Flonase Nasal [place]] 1 spray NASAL DAILY 05/01/19 Amiodarone HCl [Cordarone] 200 mg PO BID #90 tab 05/03/19 Apixaban [Eliquis] 2.5 mg PO BID #90 tab 05/03/19 Aspirin [Aspirin, Baby] 81 mg PO DAILY@0800 #90 tab.chew 05/03/19 Furosemide [Lasix] 40 mg PO BID #90 tab 05/03/19 Metoprolol Tartrate [Lopressor (beta yohan)] 50 mg PO BID #90 tab 05/03/19 The following prescriptions were given: Aspirin [Aspirin, Baby] 81 mg PO DAILY@0800 #90 tab.chew Transmission Status: Pending to [facility] Amiodarone HCl [Cordarone] 200 mg PO BID #90 tab Transmission Status: Pending to [facility] Apixaban [Eliquis] 2.5 mg PO BID #90 tab Transmission Status: Pending to [facility] Furosemide [Lasix] 40 mg PO BID #90 tab Transmission Status: Pending to [facility] Metoprolol Tartrate [Lopressor (beta yohan)] 50 mg PO BID #90 tab Transmission Status: Pending to [facility] Primary Care Physician: Sherrell Hughes,Out of [Primary Care Provider] - Please follow up with your Primary Care Physician in: 2-3 weeks. Test Results: Test results from this visit will be discussed in further detail at your follow-up appointment, if applicable. Please Follow Up With: Quincy Kraus MD When: 05/11/2019.
[2019-05-03] MEDS: APIXABAN 2.5 MG TABLET PO (09:48)
[2019-05-03] MEDS: Amiodarone 200 MG Tablet PO (09:48)
[2019-05-03] MEDS: Allopurinol 100 MG Tablet PO (09:48)
[2019-05-03] MEDS: Lisinopril 10 MG Tablet PO (10:07)
[2019-05-03] MEDS: Metoprolol Tartrate 50 MG Tablet PO (10:07)
[2019-05-03] MEDS: Furosemide 40 MG/4 ML Vial IV (10:07)
--- NOTE | 2019-05-03 10:24 | CASEMGMT ---
Per Shannan ROSALES, pt does not qualify for home oxygen at this time. Pt to be sent home on Eliquis but gets scripts filled through [facility]. Eliquis 30 day free trial card to be sent home with pt. El CARLOS aware and updated on all at this time, voices understanding. Meds were actually e-scribed to [facility] pharmacy and El CARLOS to call [facility] to see who they use for pharmacy and meds will be transferred there per pt/facility preference. Jeremiah, pharmacist in [facility] pharmacy, updated at this time and is awaiting call back from this RN CM regarding pharmacy. Larissa RN CM
--- NOTE | 2019-05-03 11:08 | PHA.DC.MR ---
Pharmacy Service has performed discharge medication reconciliation for this patient. Home Medications Allopurinol [Zyloprim] 200 mg PO DAILY 01/17/13 Cyanocobalamin (Vitamin B-12) [B-12] 100 mcg SL DAILY 01/17/13 Lisinopril [Zestril] 10 mg PO DAILY 01/17/13 Multivitamins,Therapeutic [Multivitamin] 1 tablet PO DAILY@0800 #30 tablet 01/20/13 Albuterol Aerosols [Ventolin Aerosols] 2.5 mg INHALATION BID PRN PRN 05/01/19 Cholecalciferol (Vitamin D3) [Vitamin D3] 2,000 unit PO DAILY 05/01/19 Fluticasone 0.05% [Flonase Nasal [place]] 1 spray NASAL DAILY 05/01/19 Amiodarone HCl [Cordarone] 200 mg PO BID #90 tab 05/03/19 Apixaban [Eliquis] 2.5 mg PO BID #90 tab 05/03/19 Aspirin [Aspirin, Baby] 81 mg PO DAILY@0800 #90 tab.chew 05/03/19 Furosemide [Lasix] 40 mg PO BID #90 tab 05/03/19 Metoprolol Tartrate [Lopressor (beta yohan)] 50 mg PO BID #90 tab 05/03/19 The patient's discharge medication list was reviewed for discrepancies and discrepancies were resolved.
--- NOTE | 2019-05-03 11:15 | NURSING ---
Report called to [facility], spoke with nurse Gonzales.
--- NOTE | 2019-05-03 11:21 | CASEMGMT ---
Social Work Pt ready for d/c today. Phone call to Sarah at [facility] and notified of d/c. Per Sarah scripts can be filled at [facility] pharmacy and sent with pt. D/C instructions faxed. SW met with pt who is aware and agreeable to d/c back to [place] today. Pt stating his family will be here at 1:00 to transport him. Nursing notified of d/c time. No further SW needs. THIEN Arrington
--- NOTE | 2019-05-03 11:43 | NURSING ---
Reviewed and agreed on all charting with Anoop Hyman RN
--- NOTE | 2019-05-03 13:07 | DS.PCM_ITS ---
Discharge Date and Diagnosis Date of Admission: 05/01/19 Date of Discharge: 05/03/19 - Primary Discharge Diagnosis #1 acute on chronic diastolic CHF. #2 new onset paroxysmal atrial fibrillation. #3 hypoxia. 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 Right basilar airspace disease. Elevated left hemidiaphragm with left basilar atelectasis. Electronically Signed: Juan Pablo DO Prakash at 8:12 EST Tel , Service support , Dr. Kraus, cardiology. Operations: None Procedures: 2-D Echocardiogram, EKG Summary of Care Provided: Patient seen and examined on the day of discharge and appeared to be stable for discharge home. He denies any more shortness of breath. Denied any more palpitation or irregular heartbeats. His vital signs are stable. Ambulatory walking pulse oximetry performed and his pulse ox remained at 90% on room air with ambulation and he did not qualify for home oxygen. The patient is a 79 year old M patient presented to the emergency room because of exertional shortness of breath, low pulse oximeter and fast heart rate and he was found to have acute on chronic diastolic CHF as well as new onset paroxysmal atrial fibrillation. Patient stated that his heart rate has been going anywhere from 147 down to 40s and his pulse ox has been in the 80s and he used his 's oxygen at the assisted living. He was found to have acute on chronic diastolic CHF. He was treated with IV risks or diuresis and maintained on metoprolol and lisinopril. 2D echocardiogram revealed normal LV size and function, ejection fraction 55%, mildly enlarged left atrium, difficult the study and RVSP was not assessed. He was found to have new onset paroxysmal A. fib for which he was started on amiodarone and metoprolol for rate control and Eliquis on anticoagulation. Cardiology consulted and agreed to IV diuresis and metoprolol for rate control. Patient did very well and his symptoms improved. On the day of discharge, ambulatory pulse oximetry performed and his pulse ox remained at 90% on room air with ambulation and he did not qualify for home oxygen. Patient discharged home in a stable medical condition, discharged on metoprolol and amiodarone for rate control, instructed to take amiodarone twice a day for 2 weeks and then go down to once a day daily, discharged on Eliquis, Lasix 40 mg p.o. twice daily, maintained on his other previous home medications without any changes, plan to follow-up with Dr. Kraus on May 11, 2019, recommended follow-up with PCP in 2 to 3 weeks. - Physical Exam Vitals/I&O's: Vital Signs Temp Pulse Resp BP Pulse Ox 97.7 F L 76 16 119/63 93 05/03/19 08:11 05/03/19 10:07 05/03/19 08:11 05/03/19 10:07 05/03/19 09:56 Oxygen Flow Rate (L/min) 1 Oxygen Delivery Method Nasal Cannula Weight: 266 lb 12.149 oz Body Mass Index (BMI) 40.5 Intake and Output for Last 24 Hours 05/01/19 05/02/19 05/03/19 23:59 23:59 23:59 Intake Total 480 / 680 880 / 1000 120 / 120 Output Total 400 / 1500 2375 / 2925 550 / 550 Balance 80 / -820 -1495 / -1925 -430 / -430 General: Alert, Oriented x3, Cooperative, No apparent distress HEENT: Atraumatic, PERRLA, EOMI, Normocephalic Oral: Moist Mucosa, No Gingival or Mucosal Lesions/ Ulcerations Neck: Supple, No JVD, Negative Carotid Bruits, Trachea Midline, Thyroid Normal Size and Texture Lungs: Clear to auscultation, Normal air movement, No rhonchi, No wheeze, No rales Cardiovascular: Regular rate, Regular Rhythm, Normal S1, Normal S2, PMI Normal Abdomen: Bowel Sounds Present, Soft, Non Tender, Non-Distended, No Hepato- splenomegaly, Obese Extremities: No clubbing, No cyanosis, Edema Skin: No rashes, No breakdown Lymphatic: No Cervical, Supraclavicular, or Inguinal Adenopathy Neurological: Cranial nerves II-XII grossly intact, Neuro grossly intact Psych/Mental Status: Normal Affect, Appropriate Laboratory Results 05/03/19 06:19: Sodium 142, Potassium 3.8, Chloride 102, Carbon Dioxide 38.0 H, Anion Gap 2 L, BUN 22 H, Creatinine 0.85, Estim Creat Clear Calc 65.94, Est GFR (MDRD) Af Amer 111, Est GFR (MDRD) Non-Af 92, BUN/Creatinine Ratio 25.9 H, Glucose 86, Calcium 8.9 Discharge Activity: Return to Normal Activity Weight Bearing Status: Weight bearing as tolerated Call your doctor if you observe: Fever of 101 or Higher, Shortness of breath, Dizziness, Fainting spells, Chest pain, Increased palpitations (irregular heartbeat), Uncontrolled pain Home Medications: Medications to take at Discharge Allopurinol [Zyloprim] 200 mg PO DAILY 01/17/13 Cyanocobalamin (Vitamin B-12) [B-12] 100 mcg SL DAILY 01/17/13 Lisinopril [Zestril] 10 mg PO DAILY 01/17/13 Multivitamins,Therapeutic [Multivitamin] 1 tablet PO DAILY@0800 #30 tablet 01/20/13 Albuterol Aerosols [Ventolin Aerosols] 2.5 mg INHALATION BID PRN PRN 05/01/19 Cholecalciferol (Vitamin D3) [Vitamin D3] 2,000 unit PO DAILY 05/01/19 Fluticasone 0.05% [Flonase Nasal [place]] 1 spray NASAL DAILY 05/01/19 Amiodarone HCl [Cordarone] 200 mg PO BID #90 tab 05/03/19 Apixaban [Eliquis] 2.5 mg PO BID #90 tab 05/03/19 Aspirin [Aspirin, Baby] 81 mg PO DAILY@0800 #90 tab.chew 05/03/19 Furosemide [Lasix] 40 mg PO BID #90 tab 05/03/19 Metoprolol Tartrate [Lopressor (beta yohan)] 50 mg PO BID #90 tab 05/03/19 Following Prescrptions Were Given to Patient: Aspirin [Aspirin, Baby] 81 mg PO DAILY@0800 #90 tab.chew Transmission Status: Received by [facility] Amiodarone HCl [Cordarone] 200 mg PO BID #90 tab Transmission Status: Received by [facility] Apixaban [Eliquis] 2.5 mg PO BID #90 tab Transmission Status: Received by [facility] Furosemide [Lasix] 40 mg PO BID #90 tab Transmission Status: Received by [facility] Metoprolol Tartrate [Lopressor (beta yohan)] 50 mg PO BID #90 tab Transmission Status: Received by [facility] Primary Care Physician: Sherrell Hughes,Out of [Primary Care Provider] - Please follow up with your Primary Care Physician in: 2-3 weeks. Please Follow Up With: Quincy Kraus MD When: 05/11/2019. Patient Instructions: Heart Failure, Using Oxygen at Home Disposition: Home Minutes spent on discharge:: 32 Patient Condition:: Stable Medical Necessity - Tobacco Use Smoking Status: Former smoker Meaningful Use Info Meaningful Use Diagnoses (Choose all that apply): None applicable - CHF ENOCH/ARB ordered at discharge?: Yes Documented LVEF (%): 55 Code Visit Inpatient E&M: 60162 Disch Hosp
== END 2019-05-03 12:25 | disposition home or self-care (01) | DRG 292 ==
LOC: ED 08:28 → PCU 11:42
PROVIDERS: Admitting Provider Hospitalist; Emergency Provider Emergency Medicine; Referring Provider Hospitalist; Visit Provider Hospitalist
DX: I11.0 Hypertensive heart disease with heart failure (principal); C91.11 Chronic lymphocytic leukemia of B-cell type in remission; Z68.41 Body mass index [BMI] 40.0-44.9, adult; I50.33 Acute on chronic diastolic (congestive) heart failure; I48.0 Paroxysmal atrial fibrillation; R09.02 Hypoxemia; E66.9 Obesity, unspecified; M1A.9XX0 Chronic gout, unspecified, without tophus (tophi); Z79.01 Long term (current) use of anticoagulants; Z79.899 Other long term (current) drug therapy; Z87.891 Personal history of nicotine dependence
CPT/HCPCS: 36415; 71045; 80048; 80061; 80076; 83735; 83880; 84443; 84484; 85025; 85610; 93005; 93306; 97162; 97166; 99251; 99285; Q9957; A4216; C8929; G0463; J1940

== ENCOUNTER 2019-06-29 21:23 | Emergency (ER) | payer MEDICARE, SELFPAY ==
[2019-05-01 09:33] VITALS: BMI 40.5
[2019-06-29 21:24] VITALS: BP 144/74; PULSE 64; RESP 20; TEMP 37.1; O2SAT 93; BMI 38.6
[2019-06-29 21:48] VITALS: O2SAT 91
--- NOTE | 2019-06-29 21:48 | EKG12_ITS ---
Test Reason : SOB Blood Pressure : / mmHG Vent. Rate : 066 BPM Atrial Rate : 066 BPM P-R Int : 174 ms QRS Dur : 104 ms QT Int : 444 ms P-R-T Axes : 000 -10 069 degrees QTc Int : 465 ms Sinus rhythm with Premature supraventricular complexes Otherwise normal ECG Confirmed by JN OROZCO, TENNILLE ([id number]), editor greeting card CLIFTON SHELDON ([id number]) on 07/01/2019 1:01:31 PM Referred By: MARIO Confirmed By:JUNIOR RAGSDALE MD
[2019-06-29 21:59] VITALS: PULSE 69; RESP 18
[2019-06-29] MEDS: Ipratropium/Albuterol Sulfate 3 ML AMPUL.NEB INHALATION (21:59)
--- NOTE | 2019-06-29 22:13 | RAD_ITS ---
STUDY: X-RAY CHEST REASON FOR EXAM: Male, 79 years old. SOB STARTED TONIGHT, HAD FLU LAST WEEK. TECHNIQUE: Frontal and lateral views COMPARISON: May 01, 2019 FINDINGS: Stable moderately elevated left hemidiaphragm with basilar atelectasis. The lungs are clear and expanded. There is no demonstrated pleural abnormality. Normal size heart. Normal mediastinum and erin. Normal visualized pulmonary arteries. Calcified visualized aortic arch and descending thoracic aorta. Normal visualized thoracic spine. Normal visualized ribs, clavicles, and shoulders. There is no demonstrated abnormality of the visualized soft tissue structures of the upper abdomen. RAD/Chest PA and Lateral IMPRESSION: Elevated left hemidiaphragm with basilar atelectasis. Electronically Signed: Tommie Rutledge DO at 22:32 EDT Tel [phone], Service support ,
[2019-06-29 22:15] LABS: Absolute Lymphocyte Count 5.24 X10^3/uL (0.83-4.51); Absolute Neutrophil Count 3.1 X10^3/uL (2.0-7.7); Basophil# 0.03 X10^3/uL; Basophil% 0.3 % (0-1); Eosinophil# 0.12 X10^3/uL; Eosinophils% 1.3 % (0-5); Hematocrit 43.5 % (40-54); Hemoglobin 13.3 g/dL (13.0-16.5); Lymphocyte # 5.24 X10^3/ul (4.0); Lymphocyte % 56.8 % (19-41); Mean Corp Hgb Conc 30.6 g/dL (32-36); Mean Corpuscular Hgb 31.2 pg (27.0-32.0); Mean Corpuscular Volume 102.1 fL (80-94); Mean Platelet Vol. 9.9 fl (6.2-12.0); Monocyte# 0.68 X10^3/uL; Monocyte% 7.4 % (0-10); NRBC Flagged by Analyzer 0 % (0-5); Neutrophil # 3.13 X10^3/uL (2.7-7.7); Neutrophil % 33.9 % (47-70); POSITIVE DIFFERENTIAL YES; Platelet Count 114 K/mm3 (150-450); RBC Distribution Width CV 14.7 % (11.6-14.6); RBC Distribution Width SD 55.3 fl (35.1-43.9); Red Blood Count 4.26 M/mm3 (4.6-6.2); White Blood Count 9.2 K/mm3 (4.4-11.0)
[2019-06-29 22:16] LABS: Differential Indicated SCAN CRITERIA MET
[2019-06-29 22:21] VITALS: O2SAT 95
[2019-06-29 22:29] LABS: Anion Gap 5 (5-15); BUN 21 mg/dL (7-18); BUN/Creat Ratio 19.8 RATIO (10-20); Calcium,Total 8.6 mg/dL (8.5-10.1); Chloride 105 mmol/L (98-107); Creatinine, Serum 1.06 mg/dL (0.70-1.30); EST Glomerular Filtration Rate 71 mL/min (>60); Est Glom Filt Rate - Afr Amer 86 mL/min (>60); Estimated Creatinine Clearance 54.66 ml/min; Glucose 87 mg/dL (74-106); Potassium 3.4 mmol/L (3.5-5.1); Sodium Level 143 mmol/L (136-145)
[2019-06-29 22:36] LABS: Differential Comment SCANNED
[2019-06-29 22:37] LABS: Lactic Acid 1.3 mmol/L (0.4-1.9)
--- NOTE | 2019-06-29 22:53 | ED.VISSUMM ---
- ER Visit Summary Date of Service: 06/29/19 Chief Complaint: Shortness of breath History of Present Illness: The patient is a 79 M who sees Eliane Odom. He reports he has shortness of breath that began today. Has had a cough productive cream-colored sputum for 5 days. No blood in his sputum. No fever, chills, chest pain. Ports that shortness of breath is mild currently and severe at worst. States it gets worse when he is unable to cough up phlegm. Physical Examination: Vitals: Stable. Afebrile. General: Well-nourished and well-developed. Head: Normocephalic atraumatic. Neck: Supple, no lymphadenopathy. No JVD. Nontender. Cardiovascular: Regular rate and rhythm. 2 out of 6 systolic murmur. Respiratory: No respiratory distress. Mild wheezing bilaterally with good air movement. Abdominal: Soft, nontender, nondistended, normal bowel sounds. No guarding, rebound, or peritoneal signs. Back: Nontender. Extremities: Nontender, no edema. Skin: Normal color, no rash. Neurologic: Alert and oriented ?3. Cranial nerves II through XII are intact. Normal strength and sensation. Psych: Normal affect. Test Results: EKG is sinus at [address] with PACs and nonspecific [address] changes. Lactic acid is 1.3. CBC shows platelets 114, stable neutrophils 34, left side to 57. Chem-7 shows potassium 3.4 and CO2 33. Clinical Impression(s) from Imaging Studies Chest X-Ray 06/29/19 22:13 IMPRESSION: Elevated left hemidiaphragm with basilar atelectasis. Electronically Signed: Tommie Rutledge DO at 22:32 EDT Tel [phone], Service support , Emergency Department Course and Treatment: Patient was given albuterol Atrovent aerosols he is resting much more comfortably. He reports in the past he has improved with Zithromax. Is given a first dose here. Treatment Plan: Patient reports he has a nebulizer at home. I the patient does not want to be placed on steroids. He will be discharged with Z-Louis. Instructed to follow-up with Eliane Odom in 3 to 5 days if not improving. Return to the emergency department for any worsening symptoms. Disposition: To home in improved and stable condition. Impression: 1. URI with bronchospasm. This note was generated with [employer] dictation software. It may contain incorrect words, spelling, and punctuation that were not noted in review of the chart prior to signing ED Disposition - Plan for ED Patient: Disposition: Home or Assisted Living Instructions: BRONCHITIS, Antiobiotic Treatment (Adult) Prescriptions: Guaifenesin [Mucinex] 600 mg PO BID #14 tab Prescription Printed Azithromycin [Zithromax] 250 mg PO DAILY #4 tab Prescription Printed Referrals: Bessy Odom, [employer] TECHNOLOGIST[employer] [NON-STAFF] - 5-7 Days
[2019-06-29] MEDS: Azithromycin 250 MG Tablet 500 MG PO (23:23)
[2019-06-29 23:25] VITALS: PULSE 66; RESP 20; O2SAT 94
== END 2019-06-29 23:25 | disposition home or self-care (01) ==
LOC: ED 23:04
PROVIDERS: Emergency Provider Emergency Medicine
DX: J06.9 Acute upper respiratory infection, unspecified (principal); J98.01 Acute bronchospasm; I11.0 Hypertensive heart disease with heart failure; I50.9 Heart failure, unspecified; Z79.82 Long term (current) use of aspirin
CPT/HCPCS: 71046; 80048; 83605; 85025; 87040; 93005; 94640; 99285

== ENCOUNTER 2020-03-20 22:03 | Inpatient (IN) | payer OTHER, MEDICARE, SELFPAY ==
[2020-01-31 13:57] VITALS: BMI 39.6
[2020-03-20 22:04] VITALS: BP 125/70; PULSE 124; RESP 19; TEMP 38.2; O2SAT 79; BMI 38.0
[2020-03-20 22:09] VITALS: BP 125/70; PULSE 113; RESP 19; TEMP 38.2; O2SAT 99
[2020-03-20 22:10] VITALS: O2SAT 98
[2020-03-20 22:31] VITALS: RESP 19; O2SAT 99
--- NOTE | 2020-03-20 22:31 | EKG12_ITS ---
Test Reason : GEN ILL Blood Pressure : / mmHG Vent. Rate : 105 BPM Atrial Rate : 108 BPM P-R Int : 000 ms QRS Dur : 110 ms QT Int : 370 ms P-R-T Axes : 000 -08 083 degrees QTc Int : 489 ms Atrial fibrillation with rapid ventricular response Nonspecific ST and T wave abnormality Abnormal ECG Confirmed by JN OROZCO, TENNILLE ([id number]), online content editor JOSE DAVEY ([id number]) on 03/21/2020 1:42:17 PM Referred By: Xander Vasquez Confirmed By:JUNIOR RAGSDALE MD
[2020-03-20 22:48] LABS: Absolute Lymphocyte Count 3.54 X10^3/uL (0.83-4.51); Basophil# 0.01 X10^3/uL; Basophil% 0.1 % (0-1); Hematocrit 42.2 % (40-54); Lymphocyte # 3.54 X10^3/ul (4.0); Lymphocyte % 43.5 % (19-41); Mean Corp Hgb Conc 30.8 g/dL (32-36); Mean Corpuscular Hgb 32.2 pg (27.0-32.0); Mean Corpuscular Volume 104.5 fL (80-94); Mean Platelet Vol. 11.1 fl (6.2-12.0); Monocyte# 0.61 X10^3/uL; Monocyte% 7.5 % (0-10); NRBC Flagged by Analyzer 0 % (0-5); Neutrophil # 3.95 X10^3/uL (2.7-7.7); Neutrophil % 48.7 % (47-70); POSITIVE COUNT YES; Platelet Count 94 K/mm3 (150-450); RBC Distribution Width CV 15.1 % (11.6-14.6); RBC Distribution Width SD 58.6 fl (35.1-43.9); Red Blood Count 4.04 M/mm3 (4.6-6.2); White Blood Count 8.1 K/mm3 (4.4-11.0)
--- NOTE | 2020-03-20 22:48 | ED.DCSUM_ITS ---
History of Present Illness Chief Complaint: Cough Narrative: This patient is an 80-year-old male who presents with COVID-19. Symptoms initially began about 10 days ago with a change in his taste. About 3 or 4 days ago he developed fever and cough. He feels short of breath today. He denies any chest pain or abdominal pain. He denies vomiting. He denies congestion or sore throat. Past Medical History - Allergies and Home Meds Allergies/Adverse Reactions: Allergies Penicillins Allergy (Severe, Verified 01/31/20 13:54) Hives Primary Care Physician: Care Physician,No Primary [Primary Care Provider] - Past Medical History: - - Hypertension, atrial fibrillation Surgical History: total knee arthroplasty, - - Amputation of the left great toe. Smoking Status: Former smoker - Family History Maternal Family History: Reports: No pertinent history Paternal Family History: Reports: No pertinent history Review of Systems All systems negative except as indicated General: Reports: Fever Eyes: Denies: Visual changes - bilaterally ENT: Denies: Bilateral ear pain Cardiovascular: Denies: Chest pain Respiratory: Reports: Dyspnea, Cough, Sputum Gastrointestinal: Denies: Abdominal pain, Nausea, Vomiting Musculoskeletal: Denies: Myalgias, Arthralgias Skin: Denies: Rash Endocrine: Denies: Polyuria Allergy: Denies: Uticaria Physical Exam Vital Signs/Narrative: Vital Signs Temp Pulse Resp BP Pulse Ox 03/20/20 22:31 19 H 99 03/20/20 22:09 100.8 F H 113 H 19 H 125/70 H 99 03/20/20 22:04 100.8 F H 124 H 19 H 125/70 H 79 Inital Vital Signs reviewed: Yes General: Well nourished, Well developed Head: Normocephalic Eyes: EOMI ENT: Moist mucous membranes Neck: Supple Cardiovascular: Regular rhythm, Tachycardia Respiratory: Wheezing, - - Tachypnea Abdomen: Soft, Nontender Extremities: Nontender Skin: Normal color Neurological: Alert Psychological: Normal affect Diagnostic/Tx/Re-eval Impressions Chest X-Ray 03/20/20 23:00 IMPRESSION: No change or definite acute abnormality. Stable prominently elevated left hemidiaphragm with relatively little aerated left lung. Electronically Signed: Ha Hernandez MD at 23:17 EST , Service support , 03/20/20 23:00 Chest 1 View (Portable) [RAD] Stat Laboratory Results 03/20/20 03/20/20 03/20/20 22:27 22:27 22:27 WBC 8.1 RBC 4.04 L Hgb 13.0 Hct 42.2 MCV 104.5 H MCH 32.2 H MCHC 30.8 L RDW Std Deviation 58.6 H RDW Coeff of Timothy 15.1 H Plt Count 94 L MPV 11.1 Immature Gran % (Auto) 0.200 Neut % (Auto) 48.7 Lymph % (Auto) 43.5 H Dawes % (Auto) 7.5 Eos % (Auto) 0.0 Baso % (Auto) 0.1 Absolute Neuts (auto) 4.0 Absolute Lymphs (auto) 3.54 Nucleated RBC % 0 Differential Comment PT INR Sodium 142 Potassium 2.8 L Chloride 101 Carbon Dioxide 37.0 H Anion Gap 4 L BUN 18 Creatinine 1.15 Estim Creat Clear Calc 49.52 Est GFR (MDRD) Af Amer 78 Est GFR (MDRD) Non-Af 65 BUN/Creatinine Ratio 15.7 Glucose 97 Lactic Acid 1.2 Calcium 8.4 L Total Bilirubin 0.50 AST 57 H ALT 49 Alkaline Phosphatase 92 Total Protein 6.7 Albumin 3.2 Globulin 3.5 Albumin/Globulin Ratio 0.9 03/20/20 22:27 WBC RBC Hgb Hct MCV MCH MCHC RDW Std Deviation RDW Coeff of Timothy Plt Count MPV Immature Gran % (Auto) Neut % (Auto) Lymph % (Auto) Dawes % (Auto) Eos % (Auto) Baso % (Auto) Absolute Neuts (auto) Absolute Lymphs (auto) Nucleated RBC % Differential Comment PT 12.3 INR 1.0 Sodium Potassium Chloride Carbon Dioxide Anion Gap BUN Creatinine Estim Creat Clear Calc Est GFR (MDRD) Af Amer Est GFR (MDRD) Non-Af BUN/Creatinine Ratio Glucose Lactic Acid Calcium Total Bilirubin AST ALT Alkaline Phosphatase Total Protein Albumin Globulin Albumin/Globulin Ratio - Medical Decision Making EKG shows atrial fibrillation at a rate of 105. Labs are notable for thrombocytopenia. Chest x-ray shows chronic changes no focal infiltrate. Patient was placed on oxygen via nasal cannula and given IV Decadron. Patient was discussed with the hospitalist and admitted. ED Disposition - Plan for ED Patient: Disposition: Acute Care Hospital [facility] Diagnosis: COVID-19 Referrals: Care Physician,No Primary [Primary Care Provider] -
[2020-03-20 22:50] LABS: Differential Indicated SCAN CRITERIA MET
[2020-03-20] MEDS: dexAMETHasone 4 MG/ML Vial 6 MG IV (22:55)
[2020-03-20] MEDS: Acetaminophen 500 MG Tablet 1000 MG PO (22:56)
[2020-03-20] MEDS: 0.9% Normal Saline 1,000 ML 999 ML IV (22:58)
--- NOTE | 2020-03-20 23:00 | RAD_ITS ---
STUDY: X-RAY CHEST REASON FOR EXAM: Male, 80 years old. PT TESTED COVID POSITIVE YESTERDAY. STATES HIS SYMPTOMS STARTED 10 DAYS AGO. PT STATES HE HAS BEEN ON HIS WIFES OXYGEN FOR A COUPLE DAYS. PULSE OX WAS 79 RA UPON ARRIVAL TECHNIQUE: Single AP portable view of the chest. COMPARISON: 06/29/2019. FINDINGS: Markedly elevated left hemidiaphragm, stable. Mediastinum is shifted to the right, stable. No definite focal pulmonary opacities. No gross effusion. Probably normal heart size. Calcified plaque in the aorta. RAD/Chest 1 View (Portable) IMPRESSION: No change or definite acute abnormality. Stable prominently elevated left hemidiaphragm with relatively little aerated left lung. Electronically Signed: Ha Hernandez MD at 23:17 EST , Service support ,
[2020-03-20 23:03] LABS: ALB/GLOB Ratio 0.9 RATIO (0.9-2.4); AST(SGOT) 57 U/L (15-37); Alanine Aminotransfer ALT/SGPT 49 U/L (16-61); Albumin, Serum 3.2 g/dL (3.2-5.0); Alkaline Phosphatase 92 U/L (45-117); Anion Gap 4 (5-15); BUN 18 mg/dL (7-18); BUN/Creat Ratio 15.7 RATIO (10-20); Calcium,Total 8.4 mg/dL (8.5-10.1); Chloride 101 mmol/L (98-107); Creatinine, Serum 1.15 mg/dL (0.70-1.30); EST Glomerular Filtration Rate 65 mL/min (>60); Est Glom Filt Rate - Afr Amer 78 mL/min (>60); Estimated Creatinine Clearance 49.52 ml/min; Globulin 3.5 g/dL (2.2-4.2); Glucose 97 mg/dL (74-106); Potassium 2.8 mmol/L (3.5-5.1); Protein, Total 6.7 g/dL (6.4-8.2); Sodium Level 142 mmol/L (136-145)
[2020-03-20 23:15] VITALS: BP 129/80; PULSE 112; RESP 20; TEMP 37.7; O2SAT 98
[2020-03-20 23:17] LABS: Lactic Acid 1.2 mmol/L (0.4-1.9)
[2020-03-20 23:35] LABS: Prothrombin Time (Protime)PT. 12.3 SECONDS (11.7-14.9)
--- NOTE | 2020-03-20 23:50 | HP.PCM_ITS ---
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 fib; CLL; hypertension; gout; combined static and diastolic heart failure who presents emergency department with shortness of breath. Shortness of breath started abo ut 10 days ago. It has been getting progressively worse. Associated with his symptoms is cough productive for dark and chan sputum. He denies loss of taste or smell sensation. He has poor appetite. He denies muscle aches. A day before 2019 he had a Covid 19 test. And on the day before presentation the Covid test returned positive. His has also been diagnosed with COVID-19 and is currently inpatient at our hospital. Past Medical History Past Medical History (Chronic Problems): Chronic Problems (Last Reviewed 03/21/20 @ 00:[address] Xander Vasquez MD) Paroxysmal atrial fibrillation (Chronic) skilled nursing (current) use of anticoagulants (Chronic) Acute on chronic combined systolic (congestive) and diastolic (congestive) heart failure (Chronic) Essential (primary) hypertension (Chronic) Chronic lymphoid leukemia in remission (Chronic) Medical History: Medical History (Last Reviewed 03/21/20 @ 01:[address] 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) use of anticoagulants (Chronic) Z79.01 New onset atrial fibrillation (Inactive) Onset Date: 05/01/19 I48.91 Acute on chronic combined systolic (congestive) and diastolic (congestive) heart failure (Chronic) I50.43 Essential (primary) hypertension (Chronic) I10 Chronic lymphoid leukemia in remission (Chronic) C91.11 Gout M10.9 Obesity E66.9 Allergies Penicillins Allergy (Severe, Verified 01/31/20 13:54) Hives Home Medications: Ambulatory Orders Medication Instructions Recorded Multivitamins,Therapeutic 1 tab PO DAILY@0800 #30 tab 01/20/13 [Multivitamin] Cholecalciferol (Vitamin D3) 2,000 unit PO DAILY 05/01/19 [Vitamin D3] Fluticasone 0.05% [Flonase Nasal 1 spray NASAL DAILY 05/01/19 [place]] Aspirin [Aspirin, Baby] 81 mg PO DAILY@0800 #90 tab.chew 05/03/19 allopurinol 100 mg tablet 200 mg PO DAILY tab 08/19/19 mecobalamin (vitamin B12) 1,000 1,000 mcg PO DAILY 08/19/19 mcg chewable tablet amiodarone 200 mg tablet 200 mg PO DAILY tab 01/31/20 furosemide 40 mg tablet 40 mg PO BID tab 01/31/20 metoprolol succinate 50 mg 50 mg PO DAILY #30 tab 02/22/20 tablet,extended release 24 hr Atorvastatin Calcium [Lipitor] 20 mg PO DAILY 03/20/20 Levothyroxine [Synthroid] 50 mcg PO DAILY 03/20/20 Surgical History: Surgical History (Last Reviewed 03/21/20 @ 00:[address] Xander Vasquez MD) History of knee replacement Z96.659 Surgical History: total knee arthroplasty, - - Amputation of the left great toe. Psychiatric History: No pertinent psych hx Smoking Status: Former smoker - *Family History Maternal History Items: - - Denies maternal medical history Paternal History Items: - - Denies paternal medical history Review of Systems Constitutional: Reports: Fever - Temperature of 99-1 01 Fahrenheit., Weakness, Fatigue. Denies: Chills, Weight Change HEENT: Denies: Head Aches, Sinus Congestion, Sinus Drainage Cardiovascular: Reports: Edema. Denies: Chest Pain, Palpitations Respiratory: Reports: Cough, Shortness of Breath, Sputum production, Wheezing Gastrointestinal: Denies: Abdominal Pain, Nausea, Vomiting Genitourinary: Denies: Dysuria Musculoskeletal: Denies: Joint Pain, Joint Tenderness Skin: Denies: Rash, Wounds Neurological: Denies: Numbness, Tingling, Focal weakness Psychiatric: Denies: Anxiety, Depression, Homicidal Ideations, Suicidal Ideations Hematologic/ Lymphatic: Denies: Easy Bruising, Easy Bleeding VTE Information - Inpt Only VTE Present on Admission: No VTE Mechan Device Prophylaxis: None VTE Pharm Prophylaxis ordered?: Yes Patient Problems: Active and Suspected Problems (Last Reviewed 03/21/20 @ 00:[address] Xander Vasquez MD) COVID-19 (Acute) SARS pneumonia (Acute) - Physical Exam Vitals/I&O's: Vital Signs Temp Pulse Resp BP Pulse Ox 99.8 F H 112 H 20 H 129/80 H 98 03/20/20 23:15 03/20/20 23:15 03/20/20 23:15 03/20/20 23:15 03/20/20 23:15 Oxygen Flow Rate (L/min) 2 Oxygen Delivery Method Nasal Cannula Weight: 116.7 kg Body Mass Index (BMI) 38.0 General: Alert, Oriented x3, Cooperative HEENT: Atraumatic, PERRLA, EOMI, Normocephalic Neck: Supple, No JVD, Negative Carotid Bruits Lungs: Wheezes Cardiovascular: Normal S1, Normal S2, No murmurs, Irregular Rate Abdomen: Bowel Sounds Present, Soft, Non Tender Extremities: Capillary Refill Less than 3 Seconds, Edema - Bilateral legs and bilateral feet Skin: No rashes, No breakdown, - - Edema of bilateral lower legs Musculoskeletal: No Tenderness to Palpation of Joints or Extremities Neurological: Cranial nerves II-XII grossly intact Psych/Mental Status: Normal Affect, Appropriate Laboratory Results 03/20/20 22:27: WBC 8.1, RBC 4.04 L, Hgb 13.0, Hct 42.2, MCV 104.5 H, MCH 32.2 H , MCHC 30.8 L, RDW Std Deviation 58.6 H, RDW Coeff of Timothy 15.1 H, Plt Count 94 L , MPV 11.1, Immature Gran % (Auto) 0.200, Neut % (Auto) 48.7, Lymph % (Auto) 43.5 H, [place] % (Auto) 7.5, Eos % (Auto) 0.0, Baso % (Auto) 0.1, Absolute Neuts (auto) 4.0, Absolute Lymphs (auto) 3.54, Nucleated RBC % 0, Differential Comment 03/20/20 22:27: Sodium 142, Potassium 2.8 L, Chloride 101, Carbon Dioxide 37.0 H , Anion Gap 4 L, BUN 18, Creatinine 1.15, Estim Creat Clear Calc 49.52, Est GFR (MDRD) Af Amer 78, Est GFR (MDRD) Non-Af 65, BUN/Creatinine Ratio 15.7, Glucose 97, Calcium 8.4 L, Total Bilirubin 0.50, AST 57 H, ALT 49, Alkaline Phosphatase 92, Total Protein 6.7, Albumin 3.2, Globulin 3.5, Albumin/Globulin Ratio 0.9 03/20/20 22:27: Lactic Acid 1.2 03/20/20 22:27: PT 12.3, INR 1.0 Current Medications Potassium Chloride () 10 meq in 100 mls @ 100 mls/hr IV BOLUS Q1H JEROME Stop: 03/21/20 03:44 Assessment/Plan All Active Problems (Last Reviewed 03/21/20 @ 00:[address] Xander Vasquez MD) COVID-19 (Acute) SARS pneumonia (Acute) SARS COVID-19 Impression of chest x-ray by radiologist: No change or definite acute abnormality. Stable prominently elevated left hemidiaphragm with relatively little aerated left lung. Actual chest x-ray image was independently interpreted. I agree with radiologist interpretation. Old chest x-ray on 06/29/2019 was reviewed; unremarkable from current chest x-ray. D-dimer elevated but age-appropriate. Check procalcitonin and respiratory pathogen panel Decadron 6 mg daily ordered. Remdesivir ordered. Consider ID/pulmonary consult. Tylenol for fever Mucinex ordered. Hypokalemia His potassium on presentation was 2.8. Potassium chloride IV was ordered at the emergency department but patient could not tolerate and had to be discontinued. Oral replacement ordered. Check BMP. Paroxysmal A. fib Metoprolol continued Amiodarone continued Reportedly had adverse reaction on Coumadin while taking antibiotics. His Coumadin was demonstrated to Eliquis but patient is unable to afford Eliquis. Is hoping to resume Eliquis in April 2020 because of insurance issues. Coumadin ordered. Trend INR. Patient INR was 1.0 on presentation. Systolic and diastolic heart failure Echocardiogram on 05/02/2019 showed ejection fraction of 55%. Diastolic dysfunction could not be assessed. Right ventricular systolic pressure/pulmonar y artery pressure could not be assessed. Check BNP. Cardiac diet ordered Elevate bilateral lower legs and apply Omer wrap. Report that he was supposed to be on compression stockings but he has been unable to wear his stockings. Daily weights ordered Strict intake and output. Metoprolol continued Hypothyroidism Synthroid continued HTN Blood pressure is stable Metoprolol continued. DVT Warfarin ordered Inpatient E&M: 48131 Init Hosp L3
[2020-03-20] MEDS: Potassium Chloride 10mEq/100mL 10 MEQ/100 ML IV.SOLN. 100 MEQ IV BOLUS (23:51)
[2020-03-20 23:52] VITALS: BP 108/58; PULSE 96; RESP 16; TEMP 37.4; O2SAT 98
[2020-03-21] VITALS (15 sets, daily range): BP systolic 97–142; BP diastolic 54–75; PULSE 70–108; RESP 16–20; TEMP 35.8–37.3; O2SAT 94–97; BMI 38.2
[2020-03-21 00:18] LABS: D-Dimer Quantitative (DVT/PE) 0.61 FEU/ug/m (0.27-0.49)
[2020-03-21 01:08] LABS: BNP,B-Type NATRIURETIC PEPTIDE 129.2 pg/mL (0-100)
[2020-03-21 01:27] LABS: Procalcitonin < 0.04 ng/mL (0.00-0.09)
[2020-03-21] MEDS: Potassium Chloride 10mEq/100mL 10 MEQ/100 ML IV.SOLN. 100 MEQ IV BOLUS ×2 (01:29→02:50)
[2020-03-21 07:04] LABS: Absolute Lymphocyte Count 3.16 X10^3/uL (0.83-4.51); Absolute Neutrophil Count 2.7 X10^3/uL (2.0-7.7); Hemoglobin 11.8 g/dL (13.0-16.5); Lymphocyte # 3.16 X10^3/ul (4.0); Lymphocyte % 52.1 % (19-41); Mean Corp Hgb Conc 30.3 g/dL (32-36); Mean Corpuscular Hgb 32.2 pg (27.0-32.0); Mean Corpuscular Volume 106.6 fL (80-94); Mean Platelet Vol. 11.1 fl (6.2-12.0); Monocyte# 0.15 X10^3/uL; Monocyte% 2.5 % (0-10); NRBC Flagged by Analyzer 0 % (0-5); Neutrophil # 2.74 X10^3/uL (2.7-7.7); Neutrophil % 45.2 % (47-70); POSITIVE COUNT YES; Platelet Count 77 K/mm3 (150-450); RBC Distribution Width SD 59.8 fl (35.1-43.9); Red Blood Count 3.66 M/mm3 (4.6-6.2); White Blood Count 6.1 K/mm3 (4.4-11.0)
[2020-03-21 07:05] LABS: Differential Indicated SCAN CRITERIA MET
[2020-03-21 07:27] LABS: Differential Comment SCANNED; Platelet Estimate SLT DEC (ADEQ)
[2020-03-21 07:36] LABS: ALB/GLOB Ratio 0.8 RATIO (0.9-2.4); AST(SGOT) 52 U/L (15-37); Alanine Aminotransfer ALT/SGPT 46 U/L (16-61); Albumin, Serum 2.7 g/dL (3.2-5.0); Alkaline Phosphatase 78 U/L (45-117); Anion Gap 4 (5-15); BUN 17 mg/dL (7-18); BUN/Creat Ratio 19.9 RATIO (10-20); Calcium,Total 8.1 mg/dL (8.5-10.1); Chloride 107 mmol/L (98-107); Creatinine, Serum 0.85 mg/dL (0.70-1.30); EST Glomerular Filtration Rate 91 mL/min (>60); Est Glom Filt Rate - Afr Amer 111 mL/min (>60); Globulin 3.2 g/dL (2.2-4.2); Glucose 114 mg/dL (74-106); Potassium 3.4 mmol/L (3.5-5.1); Protein, Total 5.9 g/dL (6.4-8.2); Sodium Level 143 mmol/L (136-145)
[2020-03-21] MEDS: Allopurinol 100 MG Tablet 200 MG PO (09:53)
[2020-03-21] MEDS: Amiodarone 200 MG Tablet PO (09:53)
[2020-03-21] MEDS: dexAMETHasone 2 MG TABLET 6 MG PO (09:53)
[2020-03-21] MEDS: Aspirin 81 MG TAB.CHEW PO (09:53)
[2020-03-21] MEDS: Multivitamins,Therapeutic Tablet 1 TABLET PO (09:54)
[2020-03-21] MEDS: guaiFENesin 1,200 MG Tablet 1200 MG PO ×2 (09:54→20:32)
[2020-03-21] MEDS: Furosemide 40 MG Tablet PO ×2 (09:54→16:04)
[2020-03-21] MEDS: Levothyroxine 50 MCG Tablet PO (09:54)
--- NOTE | 2020-03-21 16:58 | PN_ITS ---
Patient Problems: Active and Suspected Problems (Last Reviewed 03/21/20 @ 01:[address] Xander Vasquez MD) COVID-19 (Acute) SARS pneumonia (Acute) Subjective: Pt states that he is feeling better today. SOB is better. Is coughing up some junk. Vitals/I&O's: Vital Signs Temp Pulse Resp BP Pulse Ox 98.9 F 98 16 142/61 H 94 03/21/20 16:00 03/21/20 16:00 03/21/20 16:00 03/21/20 16:00 03/21/20 16:00 Oxygen Flow Rate (L/min) 2 Oxygen Delivery Method Nasal Cannula Weight: 117.5 kg Body Mass Index (BMI) 38.2 Intake and Output for Last 24 Hours 03/19/20 03/20/20 03/21/20 23:59 23:59 23:59 Intake Total 1000 / 1000 1220 / 1220 Balance 1000 / 1000 1220 / 1220 General: Alert, Oriented x3, Cooperative, No apparent distress, Well developed, Well nourished, - - older WM sitting up in a chair next to the bed appears well, has O2 off and SpO2 is 87% on RA, very talkative HEENT: Atraumatic, Normocephalic Oral: Moist Mucosa, No Gingival or Mucosal Lesions/ Ulcerations, - - no thrush Lungs: No rhonchi, No rales, Diminished, Wheezes - few scatttered Cardiovascular: Regular rate, Regular Rhythm, Normal S1, Normal S2, No murmurs, No Ectopic Activity, No rub noted, No Gallop Abdomen: Bowel Sounds Present, Soft, Non Tender, Non-Distended Extremities: No clubbing, No cyanosis, No edema, Capillary Refill Less than 3 Seconds, Peripheral Pulses Normal Skin: No rashes, No breakdown, - - pale skin Musculoskeletal: No Tenderness to Palpation of Joints or Extremities, No Muscle Wasting, Arthritic Changes Lymphatic: No Cervical, Supraclavicular, or Inguinal Adenopathy Neurological: Cranial nerves II-XII grossly intact, Neuro grossly intact, Muscle tone normal, Coordination normal Psych/Mental Status: Normal Affect, Appropriate Microbiology Past 72 Hours 03/21/20 03:40 Mucosa - Nasopharyngeal Respiratory Panel (PCR) - Final Laboratory Results 03/20/20 22:27: WBC 8.1, RBC 4.04 L, Hgb 13.0, Hct 42.2, MCV 104.5 H, MCH 32.2 H , MCHC 30.8 L, RDW Std Deviation 58.6 H, RDW Coeff of Timothy 15.1 H, Plt Count 94 L , MPV 11.1, Immature Gran % (Auto) 0.200, Neut % (Auto) 48.7, Lymph % (Auto) 43.5 H, [place] % (Auto) 7.5, Eos % (Auto) 0.0, Baso % (Auto) 0.1, Absolute Neuts (auto) 4.0, Absolute Lymphs (auto) 3.54, Nucleated RBC % 0, Differential Comment 03/20/20 22:27: Sodium 142, Potassium 2.8 L, Chloride 101, Carbon Dioxide 37.0 H , Anion Gap 4 L, BUN 18, Creatinine 1.15, Estim Creat Clear Calc 49.52, Est GFR (MDRD) Af Amer 78, Est GFR (MDRD) Non-Af 65, BUN/Creatinine Ratio 15.7, Glucose 97, Calcium 8.4 L, Total Bilirubin 0.50, AST 57 H, ALT 49, Alkaline Phosphatase 92, Total Protein 6.7, Albumin 3.2, Globulin 3.5, Albumin/Globulin Ratio 0.9 03/20/20 22:27: Lactic Acid 1.2 03/20/20 22:27: PT 12.3, INR 1.0, D-Dimer Quant (PE/DVT) 0.61 H* 03/20/20 22:47: B-Natriuretic Peptide 129.2 H 03/20/20 22:47: Procalcitonin < 0.04 03/21/20 06:15: WBC 6.1, RBC 3.66 L, Hgb 11.8 L, Hct 39.0 L, MCV 106.6 H, MCH 32.2 H, MCHC 30.3 L, RDW Std Deviation 59.8 H, RDW Coeff of Timothy 15.0 H, Plt Count 77 L, MPV 11.1, Immature Gran % (Auto) 0.200, Neut % (Auto) 45.2 L, Lymph % (Auto) 52.1 H, [place] % (Auto) 2.5, Eos % (Auto) 0.0, Baso % (Auto) 0.0, Absolute Neuts (auto) 2.7, Absolute Lymphs (auto) 3.16, Nucleated RBC % 0, Differential Comment SCANNED, Platelet Estimate SLT 03/21/20 06:15: Sodium 143, Potassium 3.4 L, Chloride 107, Carbon Dioxide 32.0, Anion Gap 4 L, BUN 17, Creatinine 0.85, Estim Creat Clear Calc 67.00, Est GFR (MDRD) Af Amer 111, Est GFR (MDRD) Non-Af 91, BUN/Creatinine Ratio 19.9, Glucose 114 H, Calcium 8.1 L, Total Bilirubin 0.40, AST 52 H, ALT 46, Alkaline Phosphatase 78, Total Protein 5.9 L, Albumin 2.7 L, Globulin 3.2, Albumin/Globulin Ratio 0.8 L Current Medications Acetaminophen (Acetaminophen 325 Mg Tablet) 650 mg PO Q6H PRN PRN PRN Reason: Pain Score 1-10/Temp > 100.7 F Albuterol Sulfate (Albuterol Sulfate 18 Gm Inhaler (200 Puffs)) 2 puff IH Q4H [facility] Last Admin: 03/21/20 13:48 Dose: 2 puff Documented by: Allopurinol (Allopurinol 100 Mg Tablet) 200 mg PO DAILY [facility] Last Admin: 03/21/20 09:53 Dose: 200 mg Documented by: Amiodarone HCl (Amiodarone 200 Mg Tablet) 200 mg PO DAILY [facility] Last Admin: 03/21/20 09:53 Dose: 200 mg Documented by: Aspirin (Aspirin 81 Mg Tab.Chew) 81 mg PO DAILY [facility] Last Admin: 03/21/20 09:53 Dose: 81 mg Documented by: Atorvastatin Calcium (Atorvastatin Calcium 20 Mg Tablet) 20 mg PO DAILY@2200 [facility] Cholecalciferol (Cholecalciferol (Vit D3) 1,000 Unit (25mcg)) 2,000 unit PO DAILY [facility] Last Admin: 03/21/20 09:58 Dose: 2,000 unit Documented by: Dexamethasone (Dexamethasone 2 Mg Tablet) 6 mg PO DAILY [facility] Stop: 03/29/20 10:01 Last Admin: 03/21/20 09:53 Dose: 6 mg Documented by: Furosemide (Furosemide 40 Mg Tablet) 40 mg PO BID@1000,1700 [facility] Last Admin: 03/21/20 16:04 Dose: 40 mg Documented by: Guaifenesin (Guaifenesin 1,200 Mg Tablet) 1,200 mg PO BID [facility] Last Admin: 03/21/20 09:54 Dose: 1,200 mg Documented by: Remdesivir 100 mg/ Sodium (Chloride) 250 mls @ 125 mls/hr IV DAILY@2200 [facility] Stop: 03/24/20 23:59 Levothyroxine Sodium (Levothyroxine 50 Mcg Tablet) 50 mcg PO DAILY [facility] Last Admin: 03/21/20 09:54 Dose: 50 mcg Documented by: Metoprolol Succinate (Metoprolol(Xl)Succ 50 Mg Tablet) [address] [facility] Miscellaneous Information (Inhaler, Assist Devices 1 Each Spacer) 1 each INHALATION PRN PRN PRN Reason: WITH ALBUTEROL INHALER Multivitamins (Multivitamins,Therapeutic Tablet) 1 tablet PO DAILY [facility] Last Admin: 03/21/20 09:54 Dose: 1 tablet Documented by: Ondansetron HCl (Ondansetron 4 Mg/2 Ml Vial) 4 mg IV Q8H PRN PRN PRN Reason: NAUSEA/VOMITING Potassium Chloride (Potassium Chloride 20 Meq Tablet) 40 meq PO BIDCM [facility] Last Admin: 03/21/20 16:04 Dose: 40 meq Documented by: Senna/Docusate Sodium (Senna/Docusate Sodium 1 Tablet) 2 tablet PO BID PRN PRN PRN Reason: Constipation Sodium Chloride (0.9% Saline Lock 10 Ml Syringe) 10 - 40 ml IV UD PRN PRN Reason: SALINE FLUSH Warfarin Sodium (Warfarin 7.5 Mg Tablet) 7.5 mg PO DAILY@1700 [facility] Last Admin: 03/21/20 16:05 Dose: 7.5 mg Documented by: STROKE Vital Signs/Narrative: Vital Signs Temp Pulse Resp BP Pulse Ox 03/21/20 16:00 98.9 F 98 16 142/61 H 94 03/21/20 14:31 103 H Medical Necessity - Tobacco Use Smoking Status: Former smoker Assessment/Plan All Active Problems (Last Reviewed 03/21/20 @ 01:[address] Xander Vasquez MD) COVID-19 (Acute) SARS pneumonia (Acute) Acute Hypoxic Respiratory Failure 2/2 COVID 19 PNA -supplemental O2 at 4 L -wean as able -Decadron day 05/30 and Remdesivir day 05/25 -ID consulted--> ? plasma -blood cx done and pending -CXR stable -continue supportive care Elevated L hemidiaphragm -chronic but impedes lung expansion Mild Anemia -monitor -no s/o bleeding Hypokalemia -replaced but will give 40 more now -recheck in am and if still low check mag -d/c scheduled tomorrow if WNL CLL -chronic stable PAF -continue Amiodarone -Coumadin 7.5 daily--> pt is subtherapeutic -check daily INR HTN/HPL -continue BB -continue statin HFpEF -currently compensated -continue home lasix dose Hypothyroidism -cont synthroid Gout -cont Allopurinol DVT Prophylaxis -heparin and coumadin--> INR was 1 on admission Code Status DNR CCA ok for ETT Inpatient E&M: 52841 Subs Hosp L2
--- NOTE | 2020-03-21 17:07 | PCM.HP.ID ---
Problem List (1) COVID-19 Status: Acute Reason for Consult: covid Consulted by: Dr. Mendez History of Present Illness: The patient is a 80 year old M with 10 days of change in taste, cough, SOB, hypoxia, fever, not feeling well. was sick first, leaving the hospital today. He came to ED, covid (+), admitted on dex and remdesivir. Feeling a little better today. Full ROS performed and neg except as noted above. - Medical History Past Medical History (Chronic Problems): Chronic Problems (Last Reviewed 03/21/20 @ 01:[address] 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) Acute on chronic combined systolic (congestive) and diastolic (congestive) heart failure (Chronic) Essential (primary) hypertension (Chronic) Chronic lymphoid leukemia in remission (Chronic) Allergies/Adverse Reactions: Allergies Penicillins Allergy (Severe, Verified 01/31/20 13:54) Hives Home Medications: Ambulatory Orders Medication Instructions Recorded Multivitamins,Therapeutic 1 tab PO DAILY@0800 #30 tab 01/20/13 [Multivitamin] Cholecalciferol (Vitamin D3) 2,000 unit PO DAILY 05/01/19 [Vitamin D3] Fluticasone 0.05% [Flonase Nasal 1 spray NASAL DAILY 05/01/19 [place]] Aspirin [Aspirin, Baby] 81 mg PO DAILY@0800 #90 tab.chew 05/03/19 allopurinol 100 mg tablet 200 mg PO DAILY tab 08/19/19 mecobalamin (vitamin B12) 1,000 1,000 mcg PO DAILY 08/19/19 mcg chewable tablet amiodarone 200 mg tablet 200 mg PO DAILY tab 01/31/20 furosemide 40 mg tablet 40 mg PO BID tab 01/31/20 metoprolol succinate 50 mg 50 mg PO DAILY #30 tab 02/22/20 tablet,extended release 24 hr Atorvastatin Calcium [Lipitor] 20 mg PO DAILY 03/20/20 Levothyroxine [Synthroid] 50 mcg PO DAILY 03/20/20 - Social History SMOKING STATUS:: Former smoker Vital Signs Temp Pulse Resp BP Pulse Ox 98.9 F 98 16 142/61 H 94 03/21/20 16:00 03/21/20 16:00 03/21/20 16:00 03/21/20 16:00 03/21/20 16:00 Oxygen Flow Rate (L/min) 2 Oxygen Delivery Method Nasal Cannula Weight: 117.5 kg Body Mass Index (BMI) 38.2 Microbiology Past 72 Hours 03/21/20 03:40 Respiratory Panel (PCR) - Final Mucosa - Nasopharyngeal Laboratory Tests Past 24 Hrs 03/20/20 03/20/20 03/20/20 22:27 22:27 22:27 WBC 8.1 RBC 4.04 L Hgb 13.0 Hct 42.2 MCV 104.5 H MCH 32.2 H MCHC 30.8 L RDW Std Deviation 58.6 H RDW Coeff of Timothy 15.1 H Plt Count 94 L MPV 11.1 Immature Gran % (Auto) 0.200 Neut % (Auto) 48.7 Lymph % (Auto) 43.5 H [place] % (Auto) 7.5 Eos % (Auto) 0.0 Baso % (Auto) 0.1 Absolute Neuts (auto) 4.0 Absolute Lymphs (auto) 3.54 Nucleated RBC % 0 Differential Comment Platelet Estimate PT INR D-Dimer Quant (PE/DVT) Sodium 142 Potassium 2.8 L Chloride 101 Carbon Dioxide 37.0 H Anion Gap 4 L BUN 18 Creatinine 1.15 Estim Creat Clear Calc 49.52 Est GFR (MDRD) Af Amer 78 Est GFR (MDRD) Non-Af 65 BUN/Creatinine Ratio 15.7 Glucose 97 Lactic Acid 1.2 Calcium 8.4 L Total Bilirubin 0.50 AST 57 H ALT 49 Alkaline Phosphatase 92 B-Natriuretic Peptide Total Protein 6.7 Albumin 3.2 Globulin 3.5 Albumin/Globulin Ratio 0.9 Procalcitonin 03/20/20 03/20/20 03/20/20 22:27 22:47 22:47 WBC RBC Hgb Hct MCV MCH MCHC RDW Std Deviation RDW Coeff of Timothy Plt Count MPV Immature Gran % (Auto) Neut % (Auto) Lymph % (Auto) [place] % (Auto) Eos % (Auto) Baso % (Auto) Absolute Neuts (auto) Absolute Lymphs (auto) Nucleated RBC % Differential Comment Platelet Estimate PT 12.3 INR 1.0 D-Dimer Quant (PE/DVT) 0.61 H* Sodium Potassium Chloride Carbon Dioxide Anion Gap BUN Creatinine Estim Creat Clear Calc Est GFR (MDRD) Af Amer Est GFR (MDRD) Non-Af BUN/Creatinine Ratio Glucose Lactic Acid Calcium Total Bilirubin AST ALT Alkaline Phosphatase B-Natriuretic Peptide 129.2 H Total Protein Albumin Globulin Albumin/Globulin Ratio Procalcitonin < 0.04 03/21/20 03/21/20 06:15 06:15 WBC 6.1 RBC 3.66 L Hgb 11.8 L Hct 39.0 L MCV 106.6 H MCH 32.2 H MCHC 30.3 L RDW Std Deviation 59.8 H RDW Coeff of Timothy 15.0 H Plt Count 77 L MPV 11.1 Immature Gran % (Auto) 0.200 Neut % (Auto) 45.2 L Lymph % (Auto) 52.1 H [place] % (Auto) 2.5 Eos % (Auto) 0.0 Baso % (Auto) 0.0 Absolute Neuts (auto) 2.7 Absolute Lymphs (auto) 3.16 Nucleated RBC % 0 Differential Comment SCANNED Platelet Estimate SLT DEC PT INR D-Dimer Quant (PE/DVT) Sodium 143 Potassium 3.4 L Chloride 107 Carbon Dioxide 32.0 Anion Gap 4 L BUN 17 Creatinine 0.85 Estim Creat Clear Calc 67.00 Est GFR (MDRD) Af Amer 111 Est GFR (MDRD) Non-Af 91 BUN/Creatinine Ratio 19.9 Glucose 114 H Lactic Acid Calcium 8.1 L Total Bilirubin 0.40 AST 52 H ALT 46 Alkaline Phosphatase 78 B-Natriuretic Peptide Total Protein 5.9 L Albumin 2.7 L Globulin 3.2 Albumin/Globulin Ratio 0.8 L Procalcitonin - Other Studies Radiology: [] reviewed Other Studies: [] Route of nutrition/ use of supplements: [] Nutritional Intake: [] IV Site: [] Hodges Catheter: [] - Physical Exam General: Alert, Oriented x3, Cooperative, No apparent distress HEENT: Atraumatic, PERRLA, EOMI Neck: Supple, No Nodes Lungs: Diminished Cardiovascular: Regular rate, Regular Rhythm Abdomen: Soft, Non Tender, Non-Distended Extremities: No edema Skin: No rashes IV Site: Peripheral, without redness Musculoskeletal: No Tenderness to Palpation of Joints or Extremities Neurological: Cranial nerves II-XII grossly intact - Assessment/Plan Antibiotics: [] Assessment/Plan: [] Active and Suspected Problems (Last Reviewed 03/21/20 @ 01:[address] Xander Vasquez MD) COVID-19 (Acute) SARS pneumonia (Acute) covid with hypoxia - on coumadin, INR therapeutic. Sx started around 03/11/20. also sick, was admitted to [facility]. Cont dex, remdesivir. Will follow, thank you.
--- NOTE | 2020-03-21 18:35 | NURSING ---
Multiple times today pt has become very agitated about medications/medication times and availability of medications. This RN attempts each time to educate pt on medications, medication times, [facility] policy, and the need to have orders for medications. Pt consistently denies education and wont let this RN finish explaining. Pt states that next time he will just bring it in and take it and you wont even know about it. This RN again informed pt that he cannot take medications from home by self d/t [facility] policy incase condition would worsen/change suddenly. Pt continues to refuse explanation and education.
[2020-03-21] MEDS: Senna/Docusate Sodium 1 Tablet 2 TABLET PO (18:40)
[2020-03-21] MEDS: Atorvastatin Calcium 20 MG Tablet PO (20:32)
[2020-03-21] MEDS: Metoprolol(XL)Succ 50 MG Tablet PO (20:33)
[2020-03-21] MEDS: 0.9% Saline Lock 10 ML Syringe IV (22:19)
[2020-03-22] VITALS (16 sets, daily range): BP systolic 104–120; BP diastolic 55–74; PULSE 81–108; RESP 16–18; TEMP 36.3–37.1; O2SAT 93–96
[2020-03-22 07:05] LABS: Hematocrit 38.7 % (40-54); Hemoglobin 12.4 g/dL (13.0-16.5); Mean Corpuscular Hgb 33.2 pg (27.0-32.0); Mean Corpuscular Volume 103.5 fL (80-94); Mean Platelet Vol. 11.4 fl (6.2-12.0); Platelet Count 100 K/mm3 (150-450); RBC Distribution Width CV 15.1 % (11.6-14.6); RBC Distribution Width SD 57.5 fl (35.1-43.9); Red Blood Count 3.74 M/mm3 (4.6-6.2)
[2020-03-22 07:28] LABS: ALB/GLOB Ratio 0.8 RATIO (0.9-2.4); AST(SGOT) 50 U/L (15-37); Alanine Aminotransfer ALT/SGPT 63 U/L (16-61); Albumin, Serum 2.8 g/dL (3.2-5.0); Alkaline Phosphatase 78 U/L (45-117); Anion Gap 2 (5-15); BUN 20 mg/dL (7-18); BUN/Creat Ratio 24.8 RATIO (10-20); Calcium,Total 8.3 mg/dL (8.5-10.1); Chloride 108 mmol/L (98-107); Creatinine, Serum 0.81 mg/dL (0.70-1.30); EST Glomerular Filtration Rate 98 mL/min (>60); Est Glom Filt Rate - Afr Amer 118 mL/min (>60); Estimated Creatinine Clearance 70.31 ml/min; Globulin 3.3 g/dL (2.2-4.2); Glucose 116 mg/dL (74-106); Potassium 3.2 mmol/L (3.5-5.1); Protein, Total 6.1 g/dL (6.4-8.2); Sodium Level 145 mmol/L (136-145)
[2020-03-22 08:28] LABS: International Normalized Ratio 1.1; Prothrombin Time (Protime)PT. 13.3 SECONDS (11.7-14.9)
[2020-03-22] MEDS: Multivitamins,Therapeutic Tablet 1 TABLET PO (08:41)
[2020-03-22] MEDS: Levothyroxine 50 MCG Tablet PO (08:41)
[2020-03-22] MEDS: guaiFENesin 1,200 MG Tablet 1200 MG PO ×2 (08:41→21:12)
[2020-03-22] MEDS: Amiodarone 200 MG Tablet PO (08:41)
[2020-03-22] MEDS: Aspirin 81 MG TAB.CHEW PO (08:42)
[2020-03-22] MEDS: dexAMETHasone 2 MG TABLET 6 MG PO (08:42)
[2020-03-22] MEDS: Allopurinol 100 MG Tablet 200 MG PO (08:43)
[2020-03-22] MEDS: Furosemide 40 MG Tablet PO ×2 (08:43→17:42)
[2020-03-22] MEDS: Benzonatate 100 MG Capsule PO ×2 (10:33→16:13)
[2020-03-22] MEDS: guaiFENesin 10 ML UDC (200MG/10ML) PO ×2 (10:33→17:42)
--- NOTE | 2020-03-22 10:47 | PCM.PN.HOSP ---
Patient Problems: Active and Suspected Problems (Last Reviewed 03/21/20 @ 01:[address] Xander Vasquez MD) COVID-19 (Acute) SARS pneumonia (Acute) Subjective: Pt upset as he just got done arguing with his about bills. He states that every time he gets a virus he gets PNA and needs abx and states that he is still coughing up junk. Discussed that he has no current bacterial PNA and is not in need of ABX at this time. Was weaned to 3 L this am. Vitals/I&O's: Vital Signs Temp Pulse Resp BP Pulse Ox 97.8 F 81 16 120/73 96 03/22/20 08:30 03/22/20 08:30 03/22/20 08:30 03/22/20 08:30 03/22/20 08:30 Oxygen Flow Rate (L/min) 4 Oxygen Delivery Method Nasal Cannula Weight: 118 kg Body Mass Index (BMI) 38.2 Intake and Output for Last 24 Hours 03/20/20 03/21/20 03/22/20 23:59 23:59 23:59 Intake Total 1000 / 1000 1570 / 1570 430 / 430 Balance 1000 / 1000 1570 / 1570 430 / 430 General: Alert, Oriented x3, Cooperative, No apparent distress, Well developed, Well nourished, - - older WM sitting up in chair, nsg at bedside HEENT: Atraumatic, PERRLA, EOMI, Normocephalic, EAC Clear Oral: Moist Mucosa Neck: Supple Lungs: Clear to auscultation, No rhonchi, No wheeze, No rales, Diminished Cardiovascular: Regular rate, Regular Rhythm, Normal S1, Normal S2, No murmurs, No Ectopic Activity, No rub noted, No Gallop Abdomen: Bowel Sounds Present, Soft, Non Tender, Non-Distended, No Hepato-splenomegaly, Obese Extremities: No clubbing, No cyanosis, No edema, Capillary Refill Less than 3 Seconds, Peripheral Pulses Normal Skin: No rashes, No breakdown Neurological: Cranial nerves II-XII grossly intact, Neuro grossly intact Psych/Mental Status: Agitated Microbiology Past 72 Hours 03/21/20 03:40 Mucosa - Nasopharyngeal Respiratory Panel (PCR) - Final Laboratory Results 03/22/20 06:10: PT 13.3, INR 1.1 03/22/20 06:10: WBC 12.0 H, RBC 3.74 L, Hgb 12.4 L, Hct 38.7 L, MCV 103.5 H, MCH 33.2 H, MCHC 32.0 D, RDW Std Deviation 57.5 H, RDW Coeff of Timothy 15.1 H, Plt Count 100 L, MPV 11.4 03/22/20 06:10: Sodium 145, Potassium 3.2 L, Chloride 108 H, Carbon Dioxide 35.0 H, Anion Gap 2 L, BUN 20 H, Creatinine 0.81, Estim Creat Clear Calc 70.31, Est GFR (MDRD) Af Amer 118, Est GFR (MDRD) Non-Af 98, BUN/Creatinine Ratio 24.8 H, Glucose 116 H, Calcium 8.3 L, Total Bilirubin 0.50, AST 50 H, ALT 63 H, Alkaline Phosphatase 78, Total Protein 6.1 L, Albumin 2.8 L, Globulin 3.3, Albumin/Globulin Ratio 0.8 L Current Medications Acetaminophen (Acetaminophen 325 Mg Tablet) 650 mg PO Q6H PRN PRN PRN Reason: Pain Score 1-10/Temp > 100.7 F Albuterol Sulfate (Albuterol Sulfate 18 Gm Inhaler (200 Puffs)) 2 puff IH Q4H [facility] Last Admin: 03/22/20 10:34 Dose: 2 puff Documented by: Allopurinol (Allopurinol 100 Mg Tablet) 200 mg PO DAILY [facility] Last Admin: 03/22/20 08:43 Dose: 200 mg Documented by: Amiodarone HCl (Amiodarone 200 Mg Tablet) 200 mg PO DAILY [facility] Last Admin: 03/22/20 08:41 Dose: 200 mg Documented by: Aspirin (Aspirin 81 Mg Tab.Chew) 81 mg PO DAILY [facility] Last Admin: 03/22/20 08:42 Dose: 81 mg Documented by: Atorvastatin Calcium (Atorvastatin Calcium 20 Mg Tablet) 20 mg PO DAILY@2200 [facility] Last Admin: 03/21/20 20:32 Dose: 20 mg Documented by: Benzonatate (Benzonatate 100 Mg Capsule) 100 mg PO Q4H PRN PRN PRN Reason: COUGH Last Admin: 03/22/20 10:33 Dose: 100 mg Documented by: Cholecalciferol (Cholecalciferol (Vit D3) 1,000 Unit (25mcg)) 2,000 unit PO DAILY [facility] Last Admin: 03/22/20 08:41 Dose: 2,000 unit Documented by: Dexamethasone (Dexamethasone 2 Mg Tablet) 6 mg PO DAILY [facility] Stop: 03/29/20 10:01 Last Admin: 03/22/20 08:42 Dose: 6 mg Documented by: Furosemide (Furosemide 40 Mg Tablet) 40 mg PO BID@1000,1700 [facility] Last Admin: 03/22/20 08:43 Dose: 40 mg Documented by: Guaifenesin (Guaifenesin 1,200 Mg Tablet) 1,200 mg PO BID [facility] Last Admin: 03/22/20 08:41 Dose: 1,200 mg Documented by: Guaifenesin (Guaifenesin 10 Ml Udc (200mg/10ml)) 10 ml PO Q6H PRN PRN PRN Reason: COUGH/CONGESTION Last Admin: 03/22/20 10:33 Dose: 10 ml Documented by: Remdesivir 100 mg/ Sodium (Chloride) 250 mls @ 125 mls/hr IV DAILY@2200 [facility] Stop: 03/24/20 23:59 Last Infusion: 03/22/20 00:37 Dose: Infused Documented by: Levothyroxine Sodium (Levothyroxine 50 Mcg Tablet) 50 mcg PO DAILY [facility] Last Admin: 03/22/20 08:41 Dose: 50 mcg Documented by: Metoprolol Succinate (Metoprolol(Xl)Succ 50 Mg Tablet) 50 mg PO HS [facility] Last Admin: 03/21/20 20:33 Dose: 50 mg Documented by: Miscellaneous Information (Inhaler, Assist Devices 1 Each Spacer) 1 each INHALATION PRN PRN PRN Reason: WITH ALBUTEROL INHALER Multivitamins (Multivitamins,Therapeutic Tablet) 1 tablet PO DAILY [facility] Last Admin: 03/22/20 08:41 Dose: 1 tablet Documented by: Ondansetron HCl (Ondansetron 4 Mg/2 Ml Vial) 4 mg IV Q8H PRN PRN PRN Reason: NAUSEA/VOMITING Potassium Chloride (Potassium Chloride 20 Meq Tablet) 40 meq PO BIDCM [facility] Last Admin: 03/22/20 08:43 Dose: 40 meq Documented by: Senna/Docusate Sodium (Senna/Docusate Sodium 1 Tablet) 2 tablet PO BID PRN PRN PRN Reason: Constipation Last Admin: 03/21/20 18:40 Dose: 2 tablet Documented by: Sodium Chloride (0.9% Saline Lock 10 Ml Syringe) 10 - 40 ml IV UD PRN PRN Reason: SALINE FLUSH Last Admin: 03/21/20 22:19 Dose: 10 ml Documented by: Warfarin Sodium (Warfarin 7.5 Mg Tablet) 7.5 mg PO DAILY@1700 [facility] Last Admin: 03/21/20 16:05 Dose: 7.5 mg Documented by: STROKE Vital Signs/Narrative: Vital Signs Temp Pulse Resp BP Pulse Ox 03/22/20 08:30 97.8 F 81 16 120/73 96 03/22/20 06:54 83 Medical Necessity - Tobacco Use Smoking Status: Former smoker Assessment/Plan All Active Problems (Last Reviewed 03/21/20 @ 01:[address] 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 Mild Anemia -monitor -no s/o bleeding -stable Hypokalemia -remains low -give and extra 40 mEq today -recheck in am -check Mag CLL -chronic stable PAF -continue Amiodarone -Coumadin 7.5 daily--> pt is still subtherapeutic -continue same dosing -check daily INR HTN/HPL -continue BB -continue statin HFpEF -currently compensated -continue home lasix dose Hypothyroidism -cont synthroid Gout -cont Allopurinol DVT Prophylaxis -heparin and coumadin--> INR was 1 on admission Code Status DNR CCA ok for ETT DISPO -may be able to d/c soon if remains stable or continues to improve -will likely need home O2 at D/C Inpatient E&M: 82650 Subs Hosp L2
[2020-03-22] MEDS: 0.9% Saline Lock 10 ML Syringe IV (21:12)
[2020-03-22] MEDS: Atorvastatin Calcium 20 MG Tablet PO (21:12)
[2020-03-22] MEDS: Metoprolol(XL)Succ 50 MG Tablet PO (21:12)
[2020-03-23] VITALS (8 sets, daily range): BP systolic 113–138; BP diastolic 64–83; PULSE 60–89; RESP 15–18; TEMP 35.9–36.8; O2SAT 82–97
[2020-03-23] MEDS: Heparin Injection (Vial) 5,000 UNIT/ML VIAL 5000 UNIT SC ×2 (00:30→10:38)
[2020-03-23] MEDS: guaiFENesin 10 ML UDC (200MG/10ML) PO ×2 (00:39→08:39)
[2020-03-23 07:01] LABS: Hematocrit 41.5 % (40-54); Hemoglobin 12.5 g/dL (13.0-16.5); Mean Corp Hgb Conc 30.1 g/dL (32-36); Mean Corpuscular Hgb 32.2 pg (27.0-32.0); Mean Platelet Vol. 11.2 fl (6.2-12.0); Platelet Count 102 K/mm3 (150-450); RBC Distribution Width CV 15.2 % (11.6-14.6); RBC Distribution Width SD 60.3 fl (35.1-43.9); Red Blood Count 3.88 M/mm3 (4.6-6.2); White Blood Count 12.1 K/mm3 (4.4-11.0)
[2020-03-23 07:26] LABS: ALB/GLOB Ratio 0.9 RATIO (0.9-2.4); AST(SGOT) 41 U/L (15-37); Alanine Aminotransfer ALT/SGPT 58 U/L (16-61); Albumin, Serum 2.9 g/dL (3.2-5.0); Alkaline Phosphatase 73 U/L (45-117); Anion Gap 2 (5-15); BUN 26 mg/dL (7-18); BUN/Creat Ratio 30.6 RATIO (10-20); Calcium,Total 8.8 mg/dL (8.5-10.1); Chloride 110 mmol/L (98-107); Creatinine, Serum 0.85 mg/dL (0.70-1.30); EST Glomerular Filtration Rate 92 mL/min (>60); Est Glom Filt Rate - Afr Amer 111 mL/min (>60); Globulin 3.2 g/dL (2.2-4.2); Glucose 102 mg/dL (74-106); Magnesium 2.2 mg/dL (1.6-2.6); Protein, Total 6.1 g/dL (6.4-8.2); Sodium Level 145 mmol/L (136-145)
[2020-03-23] MEDS: Allopurinol 100 MG Tablet 200 MG PO (08:37)
[2020-03-23] MEDS: dexAMETHasone 2 MG TABLET 6 MG PO (08:38)
[2020-03-23] MEDS: Multivitamins,Therapeutic Tablet 1 TABLET PO (08:38)
[2020-03-23] MEDS: guaiFENesin 1,200 MG Tablet 1200 MG PO (08:38)
[2020-03-23] MEDS: Levothyroxine 50 MCG Tablet PO (08:38)
[2020-03-23] MEDS: Furosemide 40 MG Tablet PO ×2 (08:39→17:04)
[2020-03-23] MEDS: Aspirin 81 MG TAB.CHEW PO (08:39)
[2020-03-23] MEDS: Amiodarone 200 MG Tablet PO (08:39)
[2020-03-23] MEDS: Benzonatate 100 MG Capsule PO ×2 (08:39→17:04)
--- NOTE | 2020-03-23 12:42 | DCINST_ITS ---
- Discharge Diagnoses Current Active Problems: Current Active and Chronic Problems (Last Reviewed 03/21/20 @ 01:[address] 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) You will use the following diet at home:: Cardiac Your food should be the consistency of: Regular Your liquids should be the consistency of: Regular/Thin Discharge Activity: Return to Normal Activity, - - Quarantine for 20 days from the onset of symptoms May resume sexual activity in: No Restrictions Call your doctor if you observe: Shortness of breath, Chest pain Allergies/Adverse Reactions: Allergies Penicillins Allergy (Severe, Verified 01/31/20 13:54) Hives Medications to take at Discharge Multivitamins,Therapeutic [Multivitamin] 1 tab PO DAILY@0800 #30 tab 01/20/13 Cholecalciferol (Vitamin D3) [Vitamin D3] 2,000 unit PO DAILY 05/01/19 Fluticasone 0.05% [Flonase Nasal [place]] 1 spray NASAL DAILY 05/01/19 Aspirin [Aspirin, Baby] 81 mg PO DAILY@0800 #90 tab.chew 05/03/19 allopurinol 100 mg tablet 200 mg PO DAILY tab 08/19/19 mecobalamin (vitamin B12) 1,000 mcg chewable tablet 1,000 mcg PO DAILY 08/19/19 amiodarone 200 mg tablet 200 mg PO DAILY tab 01/31/20 furosemide 40 mg tablet 40 mg PO BID tab 01/31/20 metoprolol succinate 50 mg tablet,extended release 24 hr 50 mg PO DAILY #30 tab 02/22/20 Atorvastatin Calcium [Lipitor] 20 mg PO DAILY 03/20/20 Levothyroxine [Synthroid] 50 mcg PO DAILY 03/20/20 Albuterol Sulfate [Albuterol Sulfate HFA] 2 puff IH Q4H #1 inhaler 03/23/20 Benzonatate [Tessalon Perle] 100 mg PO Q4H PRN PRN #30 cap 03/23/20 Guaifenesin [Robitussin] 10 ml PO Q6H PRN PRN #1 bottle 03/23/20 Inhaler, Assist Devices [Pocket Chamber] 1 ea INHALATION PRN PRN #1 spacer 03/23/20 Warfarin [Coumadin] 7.5 mg PO DAILY@1700 #30 tab 03/23/20 dexAMETHasone [Dexamethasone] 6 mg PO DAILY #6 tab 03/23/20 The following prescriptions were given: Albuterol Sulfate [Albuterol Sulfate HFA] 2 puff IH Q4H #1 inhaler Transmission Status: Pending to [facility] Warfarin [Coumadin] 7.5 mg PO DAILY@1700 #30 tab Transmission Status: Pending to [facility] dexAMETHasone [Dexamethasone] 6 mg PO DAILY #6 tab Transmission Status: Pending to [facility] Inhaler, Assist Devices [Pocket Chamber] 1 ea INHALATION PRN PRN #1 spacer PRN Reason: WITH ALBUTEROL INHALER Transmission Status: Pending to [facility] Guaifenesin [Robitussin] 10 ml PO Q6H PRN PRN #1 bottle PRN Reason: COUGH/CONGESTION Transmission Status: Pending to [facility] Benzonatate [Tessalon Perle] 100 mg PO Q4H PRN PRN #30 cap PRN Reason: COUGH Transmission Status: Pending to [facility] Primary Care Physician: Bessy Odom [employer]OWBLOWER MECHANIC, SNOWBLOWER MECHANIC-C [NON-STAFF] - Please follow up with your Primary Care Physician in: 1-2 weeks Test Results: Test results from this visit will be discussed in further detail at your follow- up appointment, if applicable. Please Follow Up With: Elle
--- NOTE | 2020-03-23 12:45 | PCM.DC.SUM ---
Discharge Date and Diagnosis - Problem List Patient Problems: Active and Suspected Problems (Last Reviewed 03/21/20 @ 01:[address] Xander Vasquez MD) COVID-19 (Acute) SARS pneumonia (Acute) Date of Admission: 03/20/20 Date of Discharge: 03/23/20 - Primary Discharge Diagnosis Acute Problems: Active Problems (Last Reviewed 03/21/20 @ 01:[address] Xander Vasquez MD) COVID-19 (Acute) SARS pneumonia (Acute) - Secondary Discharge Diagnosis Chronic Problems: Chronic Problems (Last Reviewed 03/21/20 @ 01:[address] 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 PT TESTED COVID POSITIVE YESTERDAY. STATES HIS SYMPTOMS STARTED 10 DAYS AGO. PT STATES HE HAS BEEN ON HIS WIFES OXYGEN FOR A COUPLE DAYS. PULSE OX WAS 79 RA UPON ARRIVAL TECHNIQUE: Single AP portable view of the chest. COMPARISON: 06/29/2019. FINDINGS: Markedly elevated left hemidiaphragm, stable. Mediastinum is shifted to the right, stable. No definite focal pulmonary opacities. No gross effusion. Probably normal heart size. Calcified plaque in the aorta. RAD/Chest 1 View (Portable) IMPRESSION: No change or definite acute abnormality. Stable prominently elevated left hemidiaphragm with relatively little aerated left lung. ID Operations: None Procedures: None Summary of Care Provided: Mr Cunha is a 80 year old M with a PMH significant for PAF, CLL, hypertension, gout, and combined static and diastolic heart failure who presented to emergency department with shortness of breath. His shortness of breath started about 10 days ago. It had been getting progressively worse. and he had associated with his symptoms of cough productive for dark and chan sputum. He denies loss of taste or smell sensation. He has poor appetite. He denies muscle aches. He had a positive COVID test on 03/14/2020. He was admitted and placed on Remdesivir and Decadron as well as expectorants and PEP therapy. He has done well and SpO2 at rest on 3L was 96%, his baseline is RA. He is feeling much better and wants to go home on O2 and we agree that this would be safe at this time as he has remained stable. He will be d/c with O2 for home and this should be weaned as able. He will complete a 10 day course of Decadron and a script was sent. He will continue his PEP therapy at home and Robitussin and Tessalon pearles for cough. Of note he was on coumadin per med reconciliation but his INR was 1.0. He was restarted on his coumadin at 7.5 and his INR was subtherapeutic at 1.1 on day of d/c. He will need daily INR's until these are discontinued by his PCP. No bridging was needed as this is for PAF. He was discharged in stable condition and all new prescriptions were faxed to his pharmacy. He is to f/u with his PCP in 1-2 weeks. Discharge Dx Acute Hypoxic Respiratory Failure 2/2 COVID 19 PNA Elevated L hemidiaphragm Mild Anemia Hypokalemia CLL PAF HTN HPL HFpEF Hypothyroidism Gout D/C time >35' Patient Problems: Active and Suspected Problems (Last Reviewed 03/21/20 @ 01:[address] Xander Vasquez MD) COVID-19 (Acute) SARS pneumonia (Acute) - Physical Exam Vitals/I&O's: Vital Signs Temp Pulse Resp BP Pulse Ox 97.8 F 82 15 122/64 H 96 03/23/20 08:31 03/23/20 08:31 03/23/20 08:31 03/23/20 08:31 03/23/20 08:31 Oxygen Flow Rate (L/min) 3 Oxygen Delivery Method Nasal Cannula Weight: 118.4 kg Body Mass Index (BMI) 38.2 Intake and Output for Last 24 Hours 03/21/20 03/22/20 03/23/20 23:59 23:59 23:59 Intake Total 1570 / 1570 1630 / 1830 300 / 300 Balance 1570 / 1570 1630 / 1830 300 / 300 General: Alert, Oriented x3, Cooperative, No apparent distress, Well developed, Well nourished, - - obese older WM sitting up in a chair, appears comfortable, nontoxic HEENT: Atraumatic, PERRLA, EOMI, Normocephalic, EAC Clear Oral: Moist Mucosa, No Gingival or Mucosal Lesions/ Ulcerations, - - no thrush Neck: Supple, Trachea Midline, Thyroid Normal Size and Texture Lungs: Clear to auscultation, No rhonchi, No wheeze, No rales, Diminished - mildly Cardiovascular: Regular rate, Regular Rhythm, Normal S1, Normal S2, No murmurs, No Ectopic Activity, No rub noted, No Gallop Abdomen: Bowel Sounds Present, Soft, Non Tender, Non-Distended, Obese Extremities: No clubbing, No cyanosis, No edema, Capillary Refill Less than 3 Seconds, Peripheral Pulses Normal Skin: No rashes, No breakdown Musculoskeletal: No Tenderness to Palpation of Joints or Extremities, No Muscle Wasting, Arthritic Changes Neurological: Cranial nerves II-XII grossly intact, Neuro grossly intact Psych/Mental Status: Normal Affect, Appropriate Microbiology Past 72 Hours 03/20/20 22:27 Blood Culture (Wb) - Anticubital Right Blood Culture - Preliminary No growth in 48 hours. 03/20/20 22:27 Blood Culture (Wb) - Right Hand Blood Culture - Preliminary No growth in 48 hours. 03/21/20 03:40 Mucosa - Nasopharyngeal Respiratory Panel (PCR) - Final Laboratory Results 03/23/20 06:15: WBC 12.1 H, RBC 3.88 L, Hgb 12.5 L, Hct 41.5, MCV 107.0 H, MCH 32.2 H, MCHC 30.1 L D, RDW Std Deviation 60.3 H, RDW Coeff of Timothy 15.2 H, Plt Count 102 L, MPV 11.2 03/23/20 06:15: Sodium 145, Potassium 4.0, Chloride 110 H, Carbon Dioxide 33.0 H, Anion Gap 2 L, BUN 26 H, Creatinine 0.85, Estim Creat Clear Calc 67.00, Est GFR (MDRD) Af Amer 111, Est GFR (MDRD) Non-Af 92, BUN/Creatinine Ratio 30.6 H, Glucose 102, Calcium 8.8, Magnesium 2.2, Total Bilirubin 0.40, AST 41 H, ALT 58, Alkaline Phosphatase 73, Total Protein 6.1 L, Albumin 2.9 L, Globulin 3.2, Albumin/Globulin Ratio 0.9 Current Medications Acetaminophen (Acetaminophen 325 Mg Tablet) 650 mg PO Q6H PRN PRN PRN Reason: Pain Score 1-10/Temp > 100.7 F Albuterol Sulfate (Albuterol Sulfate 18 Gm Inhaler (200 Puffs)) 2 puff IH Q4H [facility] Last Admin: 03/23/20 10:38 Dose: 2 puff Documented by: Allopurinol (Allopurinol 100 Mg Tablet) 200 mg PO DAILY [facility] Last Admin: 03/23/20 08:37 Dose: 200 mg Documented by: Amiodarone HCl (Amiodarone 200 Mg Tablet) 200 mg PO DAILY [facility] Last Admin: 03/23/20 08:39 Dose: 200 mg Documented by: Aspirin (Aspirin 81 Mg Tab.Chew) 81 mg PO DAILY [facility] Last Admin: 03/23/20 08:39 Dose: 81 mg Documented by: Atorvastatin Calcium (Atorvastatin Calcium 20 Mg Tablet) 20 mg PO DAILY@2200 [facility] Last Admin: 03/22/20 21:12 Dose: 20 mg Documented by: Benzonatate (Benzonatate 100 Mg Capsule) 100 mg PO Q4H PRN PRN PRN Reason: COUGH Last Admin: 03/23/20 08:39 Dose: 100 mg Documented by: Cholecalciferol (Cholecalciferol (Vit D3) 1,000 Unit (25mcg)) 2,000 unit PO DAILY [facility] Last Admin: 03/23/20 08:39 Dose: 2,000 unit Documented by: Dexamethasone (Dexamethasone 2 Mg Tablet) 6 mg PO DAILY [facility] Stop: 03/29/20 10:01 Last Admin: 03/23/20 08:38 Dose: 6 mg Documented by: Furosemide (Furosemide 40 Mg Tablet) 40 mg PO BID@1000,1700 [facility] Last Admin: 03/23/20 08:39 Dose: 40 mg Documented by: Guaifenesin (Guaifenesin 1,200 Mg Tablet) 1,200 mg PO BID [facility] Last Admin: 03/23/20 08:38 Dose: 1,200 mg Documented by: Guaifenesin (Guaifenesin 10 Ml Udc (200mg/10ml)) 10 ml PO Q6H PRN PRN PRN Reason: COUGH/CONGESTION Last Admin: 03/23/20 08:39 Dose: 10 ml Documented by: Heparin Sodium (Porcine) (Heparin Injection (Vial) 5,000 Unit/Ml Vial) 5,000 unit SC Q12 [facility] Last Admin: 03/23/20 10:38 Dose: 5,000 unit Documented by: Remdesivir 100 mg/ Sodium (Chloride) 250 mls @ 125 mls/hr IV DAILY@2200 [facility] Stop: 03/24/20 23:59 Last Infusion: 03/22/20 23:13 Dose: Infused Documented by: Levothyroxine Sodium (Levothyroxine 50 Mcg Tablet) 50 mcg PO DAILY [facility] Last Admin: 03/23/20 08:38 Dose: 50 mcg Documented by: Metoprolol Succinate (Metoprolol(Xl)Succ 50 Mg Tablet) 50 mg PO [facility] Last Admin: 03/22/20 21:12 Dose: 50 mg Documented by: Miscellaneous Information (Inhaler, Assist Devices 1 Each Spacer) 1 each INHALATION PRN PRN PRN Reason: WITH ALBUTEROL INHALER Multivitamins (Multivitamins,Therapeutic Tablet) 1 tablet PO DAILY [facility] Last Admin: 03/23/20 08:38 Dose: 1 tablet Documented by: Ondansetron HCl (Ondansetron 4 Mg/2 Ml Vial) 4 mg IV Q8H PRN PRN PRN Reason: NAUSEA/VOMITING Potassium Chloride (Potassium Chloride 20 Meq Tablet) 40 meq PO BIDCM [facility] Last Admin: 03/23/20 08:38 Dose: 40 meq Documented by: Senna/Docusate Sodium (Senna/Docusate Sodium 1 Tablet) 2 tablet PO BID PRN PRN PRN Reason: Constipation Last Admin: 03/21/20 18:40 Dose: 2 tablet Documented by: Sodium Chloride (0.9% Saline Lock 10 Ml Syringe) 10 - 40 ml IV UD PRN PRN Reason: SALINE FLUSH Last Admin: 03/22/20 21:12 Dose: 10 ml Documented by: Warfarin Sodium (Warfarin 7.5 Mg Tablet) 7.5 mg PO DAILY@1700 [facility] Last Admin: 03/22/20 17:42 Dose: 7.5 mg Documented by: Home Medications: Medications to take at Discharge Multivitamins,Therapeutic [Multivitamin] 1 tab PO DAILY@0800 #30 tab 01/20/13 Cholecalciferol (Vitamin D3) [Vitamin D3] 2,000 unit PO DAILY 05/01/19 Fluticasone 0.05% [Flonase Nasal [place]] 1 spray NASAL DAILY 05/01/19 Aspirin [Aspirin, Baby] 81 mg PO DAILY@0800 #90 tab.chew 05/03/19 allopurinol 100 mg tablet 200 mg PO DAILY tab 08/19/19 mecobalamin (vitamin B12) 1,000 mcg chewable tablet 1,000 mcg PO DAILY 08/19/19 amiodarone 200 mg tablet 200 mg PO DAILY tab 01/31/20 furosemide 40 mg tablet 40 mg PO BID tab 01/31/20 metoprolol succinate 50 mg tablet,extended release 24 hr 50 mg PO DAILY #30 tab 02/22/20 Atorvastatin Calcium [Lipitor] 20 mg PO DAILY 03/20/20 Levothyroxine [Synthroid] 50 mcg PO DAILY 03/20/20 Albuterol Sulfate [Albuterol Sulfate HFA] 2 puff IH Q4H #1 inhaler 03/23/20 Benzonatate [Tessalon Perle] 100 mg PO Q4H PRN PRN #30 cap 03/23/20 Guaifenesin [Robitussin] 10 ml PO Q6H PRN PRN #1 bottle 03/23/20 Inhaler, Assist Devices [Pocket Chamber] 1 ea INHALATION PRN PRN #1 spacer 03/23/20 Warfarin [Coumadin] 7.5 mg PO DAILY@1700 #30 tab 03/23/20 dexAMETHasone [Dexamethasone] 6 mg PO DAILY #6 tab 03/23/20 Following Prescriptions Were Given to Patient: Albuterol Sulfate [Albuterol Sulfate HFA] 2 puff IH Q4H #1 inhaler Transmission Status: Received by [facility] Warfarin [Coumadin] 7.5 mg PO DAILY@1700 #30 tab Transmission Status: Received by [facility] dexAMETHasone [Dexamethasone] 6 mg PO DAILY #6 tab Transmission Status: Received by [facility] Inhaler, Assist Devices [Pocket Chamber] 1 ea INHALATION PRN PRN #1 spacer PRN Reason: WITH ALBUTEROL INHALER Transmission Status: Received by [facility] Guaifenesin [Robitussin] 10 ml PO Q6H PRN PRN #1 bottle PRN Reason: COUGH/CONGESTION Transmission Status: Received by [facility] Benzonatate [Tessalon Perle] 100 mg PO Q4H PRN PRN #30 cap PRN Reason: COUGH Transmission Status: Received by [facility] Primary Care Physician: Care Physician,No Primary [Primary Care Provider] - Medical Necessity - Tobacco Use Smoking Status: Former smoker Meaningful Use Info Meaningful Use Diagnoses (Choose all that apply): None applicable Inpatient E&M: 87187 [facility]
--- NOTE | 2020-03-23 12:55 | CASEMGMT ---
Addendum entered by Katja Choudhary 03/23/20 15:46: Call received from Zoë @ [facility]. She states ETA of O2 is around 4:20. She asks for [employer] to call her w/time of discharge so they can arrange Home O2 delivery. SW working on setting up transport. Original Note: [facility] [employer] NOTE: Home ambulatory testing has been completed. Pt qualifies for Home O2 @ 3 L/M n/c. Call placed to pt in his room. Pt made aware will need O2 @ d/c. He states he wants the same DME company that his uses for her oxygen. Pt uses [facility]. Script obtained from Dr Mendez for oxygen and faxed to [facility]. Av QUIJANO RN, CM
--- NOTE | 2020-03-23 14:51 | CASEMGMT ---
TERRANCE spoke with patient and he uses the [facility] for his [facility]. Patient needs transportation back to [facility]. SW spoke with patient an let him know it is going to cost around $75 at least to transport him home. He told SW to call his insurance they offer transportation and if that does not work call [facility]. TERRANCE called patient's insurance and spoke with Zohra Vivas ([phone]). Normally they use Lyft or [employer] for patient's that do not need wheelchairs and they are not transporting COVID patients. She said she called the 2 providers they have in [facility] for wheelchairs and left messages, but has not heard back from anyone. She said it does not look promising. TERRANCE called [employer] and left a message for Vance. TERRANCE tried to call again later and his voice mail is full. TERRANCE called patient and let him know the situation. He was upset this is such an issue. He told SW to call [facility] and tell Je to get his car keys and come pick him up. TERRANCE did this and they said absolutely not. TERRANCE called Zohra with patient's insurance and asked if they could call [facility] to see if they can do a contract and transport him home. Zohra was going to call [facility] and get back to Social Work. TERRANCE updated RN. TERRANCE received a call from patient's . She was upset he is not home yet. TERRANCE explained the situation and what TERRANCE has done. She asked that TERRANCE let her know when TERRANCE has arranged something. Shy SHERMAN
--- NOTE | 2020-03-23 18:09 | CASEMGMT ---
TERRANCE has talked with Zohra with patient's insurance and they have not been able to come to an agreement with [facility]. They can absolutely not pay what [facility] is asking. TERRANCE spoke with Lead TERRANCE Sorensen and lube attendant Dept. Leatha Jorge It was decided [facility] will bill [facility] for the wheelchair van transport. (should be around $75) TERRANCE notified ore charger Sarwat as well. TERRANCE called [facility] and arranged for patient to get picked up at 2130 via wheelchair with the bill to go to [facility]. TERRANCE notified patient, his , Kandice Castillo, and RN. Plan: d/c back to [facility]. [facility] transported via wheelchair van. Shy REINA MSW
== END 2020-03-23 21:45 | disposition home or self-care (01) | DRG 177 ==
LOC: ED 23:43 → PCU 23:55
PROVIDERS: Internal Medicine Infectious Disease; Admitting Provider Hospitalist; Emergency Provider Emergency Medicine; Referring Provider Hospitalist; Visit Provider Internal Medicine
DX: U07.1 COVID-19 (principal); J12.89 Other viral pneumonia; J96.01 Acute respiratory failure with hypoxia; I50.43 Acute on chronic combined systolic (congestive) and diastolic (congestive) heart failure; C91.11 Chronic lymphocytic leukemia of B-cell type in remission; D63.0 Anemia in neoplastic disease; I11.0 Hypertensive heart disease with heart failure; I48.0 Paroxysmal atrial fibrillation; E87.6 Hypokalemia; E78.5 Hyperlipidemia, unspecified; E03.9 Hypothyroidism, unspecified; M10.9 Gout, unspecified; E66.9 Obesity, unspecified; Z68.38 Body mass index [BMI] 38.0-38.9, adult; Z66 Do not resuscitate; Z79.01 Long term (current) use of anticoagulants; Z79.890 Hormone replacement therapy; Z79.899 Other long term (current) drug therapy; Z87.891 Personal history of nicotine dependence
CPT/HCPCS: 36415; 71045; 80053; 83605; 83735; 83880; 84145; 85025; 85027; 85379; 85610; 87040; 87633; 93005; 94667; 94668; 94760; 97162; 97802; 99285; J7030; J7050; A4216

== ENCOUNTER 2020-03-27 06:40 | Inpatient (IN) | payer OTHER, MEDICARE, SELFPAY ==
[2020-03-21 00:41] VITALS: BMI 38.2
[2020-03-27] VITALS (19 sets, daily range): BP systolic 105–155; BP diastolic 68–106; PULSE 92–158; RESP 12–34; TEMP 36.6–39.1; O2SAT 84–98; BMI 39.8; BMI 37.9; BMI 38.0
--- NOTE | 2020-03-27 06:54 | EKG12_ITS ---
Test Reason : SOB Blood Pressure : / mmHG Vent. Rate : 153 BPM Atrial Rate : 170 BPM P-R Int : 000 ms QRS Dur : 100 ms QT Int : 322 ms P-R-T Axes : 000 -09 053 degrees QTc Int : 514 ms Atrial fibrillation with rapid ventricular response Nonspecific ST and T wave abnormality Abnormal ECG Confirmed by JN OROZCO, TENNILLE ([id number]), video news editor CLIFTON SHELDON ([id number]) on 04/09/2020 8:37:58 AM Referred By: RAUL Confirmed By:JUNIOR RAGSDALE MD
--- NOTE | 2020-03-27 06:54 | RAD_ITS ---
STUDY: X-RAY CHEST REASON FOR EXAM: Male, 80 years old. COVID positive with increase SOB TECHNIQUE: Single AP portable view of the chest. COMPARISON: 03/20/2020. 05/01/2019. FINDINGS: There is elevation of the left hemidiaphragm on both current and previous studies. There is no demonstrated pulmonary infiltrate. There is no demonstrated pleural abnormality. There is leftward shift of the heart and mediastinum, probably due to elevated right hemidiaphragm. Normal size heart. Normal mediastinum and erin. Normal visualized aortic arch and descending thoracic aorta. There are no demonstrated acute fractures or destructive bone lesions. There is no demonstrated abnormality of the visualized soft tissue structures of the upper abdomen. RAD/Chest 1 View (Portable) IMPRESSION: Chronic elevation of left hemidiaphragm. No evidence for acute cardiopulmonary pathology. Electronically Signed: Jayden Byers MD at 7:41 EST , Service support ,
--- NOTE | 2020-03-27 06:57 | ED.VIS.GEN ---
History of Present Illness Chief Complaint: Shortness of Breath Informant: Patient Narrative: 80-year-old male with past medical history of paroxysmal A. fib, CLL, hypertension, heart failure presents with concern for shortness of breath. Patient is currently at senior care facility following discharge from [facility] 4 days ago after being hospitalized for Covid. And symptoms of Covid began approximately 2.5 weeks ago. Patient was on 4 L by nasal cannula at senior care facility and became more short of breath over the past 12 hours. States his cough is increased. Does continue to have fevers. Denies any nausea, vomiting, abdominal pain. States he has been eating and drinking. Making good urine. Past Medical History - Allergies and Home Meds Allergies/Adverse Reactions: Allergies Penicillins Allergy (Severe, Verified 03/27/20 06:45) Dixon Primary Care Physician: Care Physician,No Primary [NON-STAFF] - Prior records reviewed: Yes Past Medical History: - - HTN, CHF, PAF, CLL Surgical History: total knee arthroplasty, - - Amputation of the left great toe. Lives: [facility] Smoking Status: Former smoker Alcohol: None Drugs: None - Family History Maternal Family History: Reports: - - Denies maternal medical history Paternal Family History: Reports: - - Denies paternal medical history Review of Systems General: Denies: Chills, Fever, Sweats Eyes: Denies: Visual changes - bilaterally, Diplopia ENT: Denies: Rhinorrhea, Sore throat Cardiovascular: Denies: Chest pain, Palpitations Respiratory: Reports: Dyspnea, Cough, Sputum. Denies: Dyspnea on exertion Gastrointestinal: Denies: Abdominal pain, Nausea, Vomiting, Diarrhea, Melena, Hematochezia Genitourinary: Denies: Dysuria, Hematuria, Frequency Musculoskeletal: Denies: Back pain, Extremity Pain Skin: Denies: Rash, Wounds Neurological: Denies: Headache, Weakness, Numbness Physical Exam Vital Signs/Narrative: Vital Signs Temp Pulse Resp BP Pulse Ox 03/27/20 06:46 26 H 98 03/27/20 06:41 100.7 F H 132 H 30 H 155/106 H 84 Inital Vital Signs reviewed: Yes General: Well nourished, Well developed, No Acute Distress Head: Normocephalic, Atraumatic Eyes: Perrl, EOMI ENT: Moist mucous membranes, No rhinorrhea Neck: Supple, Nontender Cardiovascular: Regular rhythm, No murmurs, Irregular, Tachycardia Respiratory: No distress, Chest nontender, - - Coarse breathe sounds bilaterally. Abdomen: Soft, Nontender, Nondistended, Normal bowel sounds Back: Nontender, Normal Inspection Extremities: Nontender, No edema Skin: Normal color, No rash Neurological: Alert, Oriented x3, Cranial nerves II-XII grossly intact, Normal Strength, Normal Sensation Psychological: Normal affect, Normal Mood Diagnostic/Tx/Re-eval Laboratory Data 03/27/20 03/27/20 03/27/20 06:49 06:49 06:49 WBC 20.8 H RBC 4.34 L Hgb 14.1 Hct 44.6 MCV 102.8 H MCH 32.5 H MCHC 31.6 L RDW Std Deviation 57.0 H RDW Coeff of Timothy 14.9 H Plt Count 199 MPV 10.6 Immature Gran % (Auto) 0.900 Neut % (Auto) 45.6 L Lymph % (Auto) 49.6 H [place] % (Auto) 3.7 Eos % (Auto) 0.0 Baso % (Auto) 0.2 Absolute Neuts (auto) 9.5 H Absolute Lymphs (auto) 10.30 H Nucleated RBC % 0 PT 38.6 H INR 4.0 H* APTT 54.1 H Lactic Acid 1.8 - Rhythm Strip Rhythm Strip: A-fib Rate: 153 Ectopy: None - EKG Initial EKG Interpretation: Atrial Fibrillation - Atrial fibrillation at 153 bpm with rapid ventricular response. QTC of [address] changes. - Medical Decision Making Patient is in moderate respiratory distress. Coarse breath sounds bilaterally. Atrial fibrillation with RVR. Patient given aerosol breathing treatments and Decadron. Lab work concerning for significant leukocytosis. Concern for superimposed bacterial pneumonia. Patient will be given Rocephin and azithromycin. Blood cultures pending. Given the patient's work of breathing he will be placed on BiPAP. INR of 4 decreasing concern for pulmonary embolism. Spoke with hospitalist who is agreeable with admission. Impression: 1. COVID 19 2. Acute hypoxemic respiratory failure 3. Supratherputic INR 4. Leukocytosis - Critical Care Time Critical care time (excluding procedures): 30-74 minutes, Discussing w/Patient &/or Family/Shift Supervisor Rn, Discussing w/Consultants, Arranging Admission or Transfer, Performing Direct Patient Care at Bedside ED Disposition - Plan for ED Patient: Disposition: Acute Care [facility] Referrals: Care Physician,No Primary [NON-STAFF] -
[2020-03-27 07:05] LABS: Absolute Neutrophil Count 9.5 X10^3/uL (2.0-7.7); Basophil# 0.04 X10^3/uL; Basophil% 0.2 % (0-1); Hematocrit 44.6 % (40-54); Hemoglobin 14.1 g/dL (13.0-16.5); Lymphocyte % 49.6 % (19-41); Mean Corp Hgb Conc 31.6 g/dL (32-36); Mean Corpuscular Hgb 32.5 pg (27.0-32.0); Mean Corpuscular Volume 102.8 fL (80-94); Mean Platelet Vol. 10.6 fl (6.2-12.0); Monocyte# 0.76 X10^3/uL; Monocyte% 3.7 % (0-10); NRBC Flagged by Analyzer 0 % (0-5); Neutrophil % 45.6 % (47-70); POSITIVE DIFFERENTIAL YES; POSITIVE MORPHOLOGY YES; Platelet Count 199 K/mm3 (150-450); RBC Distribution Width CV 14.9 % (11.6-14.6); Red Blood Count 4.34 M/mm3 (4.6-6.2); White Blood Count 20.8 K/mm3 (4.4-11.0)
[2020-03-27] MEDS: Ipratropium/Albuterol Sulfate 3 ML AMPUL.NEB INHALATION ×3 (07:05→19:55)
[2020-03-27] MEDS: Albuterol 2.5 MG/3 ML VIAL.NEB. INHALATION (07:05)
[2020-03-27 07:09] LABS: Prothrombin Time (Protime)PT. 38.6 SECONDS (11.7-14.9)
[2020-03-27 07:10] LABS: Differential Indicated SCAN CRITERIA MET; Partial Thromboplast Time 54.1 Seconds (24.1-36.2)
[2020-03-27] MEDS: Acetaminophen 500 MG Tablet 1000 MG PO (07:20)
[2020-03-27 07:26] LABS: Lactic Acid 1.8 mmol/L (0.4-1.9)
--- NOTE | 2020-03-27 07:27 | NURSING ---
ATTEMPTED TO CALL [facility]. NO ANSWER.
--- NOTE | 2020-03-27 07:27 | NURSING ---
MS2 COVID UNIT GREGORY WEI
[2020-03-27 07:31] LABS: ALB/GLOB Ratio 0.7 RATIO (0.9-2.4); AST(SGOT) 26 U/L (15-37); Alanine Aminotransfer ALT/SGPT 45 U/L (16-61); Albumin, Serum 2.9 g/dL (3.2-5.0); Alkaline Phosphatase 83 U/L (45-117); Anion Gap 6 (5-15); BUN 20 mg/dL (7-18); BUN/Creat Ratio 20.1 RATIO (10-20); Calcium,Total 9.2 mg/dL (8.5-10.1); Chloride 96 mmol/L (98-107); Creatinine, Serum 0.99 mg/dL (0.70-1.30); EST Glomerular Filtration Rate 77 mL/min (>60); Est Glom Filt Rate - Afr Amer 93 mL/min (>60); Estimated Creatinine Clearance 57.53 ml/min; Glucose 103 mg/dL (74-106); Potassium 3.5 mmol/L (3.5-5.1); Protein, Total 6.9 g/dL (6.4-8.2); Sodium Level 138 mmol/L (136-145)
[2020-03-27 07:36] LABS: Blood Gas Specimen Type VEN; VBG BASE EXCESS 8 mmol/L (-1.0-3.5); VBG Bicarbonate 32 mmol/L (22-26); VBG PO2 42 mmHg (25-40); VBG SO2 79 % (50-70); VBG TCO2 33 mmol/L (23-33); VBG pCO2 45.4 mmHg (41-51); VBG pH 7.45 (7.32-7.42)
[2020-03-27] MEDS: dexAMETHasone 4 MG/ML Vial 6 MG IV (07:43)
[2020-03-27] MEDS: Ceftriaxone 1 GM/50 ML BAG IV (07:43)
--- NOTE | 2020-03-27 08:43 | NURSING ---
CALLED [facility], TALKED TO BERYL. SHE TOOK INFO ON PATIENT
--- NOTE | 2020-03-27 09:20 | HP.PCM_ITS ---
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 The patient is a 80 year old M with past medical history as mentioned above presented to the emergency room from the skilled nursing because of worsening shortness of breath and increasing oxygen requirement. The patient was discharged from the hospital 4 days ago after admission for COVID-19 pneumonia with acute respiratory failure and he was discharged on Decadron and oxygen at 4 L. According to the patient, over the last couple of days, he has been having increasing shortness of breath, both at rest and with exertion, associated with dry cough and skilled nursing staff increased his oxygen up to 6 L. He reported associated fever as well. In the emergency department, patient was febrile, heart rate has been in the 130s, was tachypneic, blood pressure stable, pulse ox was 84% on room air, improved with oxygen by nasal cannula of 6 L and then started on BiPAP. Routine blood work was remarkable for leukocytosis, otherwise unremarkable. LFT was unremarkable. Lactic acid was normal. Troponin was negative. Venous blood gas revealed pH of 7.45, PCO2 of 33 and PO2 of 79. INR was 4. Chest x-ray revealed elevation of left hemidiaphragm which is chronic, no obvious infiltrate or consolidation. EKG revealed A. fib with RVR, heart rate was 153, no acute ischemic changes. He is being admitted for acute on recently chronic hypoxic respiratory failure due to recent COVID-19, sepsis and A. fib with RVR. Past Medical History Past Medical History (Chronic Problems): Chronic Problems (Last Updated 03/27/20 @ 09:[address] 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) I50.43 Essential (primary) hypertension (Chronic) I10 Chronic lymphoid leukemia in remission (Chronic) C91.11 Gout M10.9 Obesity E66.9 Allergies Penicillins Allergy (Severe, Verified 03/27/20 06:45) Hives Home Medications: Ambulatory Orders Medication Instructions Recorded Multivitamins,Therapeutic 1 tab PO DAILY@0800 #30 tab 01/20/13 [Multivitamin] Cholecalciferol (Vitamin D3) 2,000 unit PO DAILY 05/01/19 [Vitamin D3] Fluticasone 0.05% [Flonase Nasal 1 spray NASAL DAILY 05/01/19 [place]] Aspirin [Aspirin, Baby] 81 mg PO DAILY@0800 #90 tab.chew 05/03/19 allopurinol 100 mg tablet 200 mg PO DAILY tab 08/19/19 mecobalamin (vitamin B12) 1,000 1,000 mcg PO DAILY 08/19/19 mcg chewable tablet amiodarone 200 mg tablet 200 mg PO DAILY tab 01/31/20 furosemide 40 mg tablet 40 mg PO BID tab 01/31/20 metoprolol succinate 50 mg 50 mg PO DAILY #30 tab 02/22/20 tablet,extended release 24 hr Atorvastatin Calcium [Lipitor] 20 mg PO DAILY 03/20/20 Levothyroxine [Synthroid] 50 mcg PO DAILY 03/20/20 Albuterol Sulfate [Albuterol 2 puff IH Q4H #1 inhaler 03/23/20 Sulfate HFA] Benzonatate [Tessalon Perle] 100 mg PO Q4H PRN PRN #30 cap 03/23/20 Guaifenesin [Robitussin] 10 ml PO Q6H PRN PRN #1 bottle 03/23/20 Inhaler, Assist Devices [Pocket 1 ea INHALATION PRN PRN #1 spacer 03/23/20 Chamber] Warfarin [Coumadin] 7.5 mg PO DAILY@1700 #30 tab 03/23/20 dexAMETHasone [Dexamethasone] 6 mg PO DAILY #6 tab 03/23/20 Tramadol HCl 25 mg PO TID PRN 03/27/20 Surgical History: Surgical History (Last Reviewed 03/21/20 @ 00:[address] Xander Vasquez MD) History of knee replacement Z96.659 Surgical History: total knee arthroplasty, - - Amputation of the left great toe. Psychiatric History: No pertinent psych hx Lives: [facility] Smoking Status: Former smoker Alcohol: None Drugs: None - *Family History Maternal History Items: - - Denies maternal medical history Paternal History Items: - - Denies paternal medical history Review of Systems Constitutional: Reports: Fever, Weakness. Denies: Anorexia, Chills Eyes: Denies: Blurred vision, Double vision, Drainage, Redness HEENT: Denies: Difficulty Hearing, Ear Pain, Eye Pain, Nasal Congestion, Sore Throat Cardiovascular: Denies: Chest Pain, Chest Pressure, Heaviness, Light Headedness, Palpitations, Syncope Respiratory: Reports: Cough, Shortness of breath at rest, Shortness of breath upon exertion. Denies: Sputum production, Wheezing Gastrointestinal: Denies: Abdominal Pain, Constipation, Diarrhea, Nausea, Vomiting Genitourinary: Denies: Dysuria, Frequency, Hematuria Musculoskeletal: Denies: Arm Pain, Back Pain, Foot Pain Skin: Denies: Dryness, Rash Neurological: Denies: Balance problems, Blurred vision, Double vision, Slurred speech, Confusion, Focal weakness, Incoordination, Numbness Psychiatric: Denies: Anxiety, Depression Endocrine: Denies: Change in Body Habitus, Polydipsia, Polyuria VTE Information - Inpt Only VTE Present on Admission: No VTE Mechan Device Prophylaxis: None VTE Pharm Prophylaxis ordered?: No Patient Problems: Active and Suspected Problems (Last Updated 03/27/20 @ 09:[address] Liliya Pérez MD) Atrial fibrillation with RVR (Acute) Acute respiratory failure with hypoxia (Acute) COVID-19 (Acute) SARS pneumonia (Acute) - Physical Exam Vitals/I&O's: Vital Signs Temp Pulse Resp BP Pulse Ox 100.1 F H 126 H 22 H 116/85 H 95 03/27/20 08:38 03/27/20 08:38 03/27/20 09:06 03/27/20 08:38 03/27/20 08:38 Oxygen Flow Rate (L/min) 6 Oxygen Delivery Method Bi-pap Weight: 257 lb 0.944 oz Body Mass Index (BMI) 37.9 General: Alert, Oriented x3, Cooperative, - - Moderately short of breath, on BiPAP. HEENT: Atraumatic, PERRLA, EOMI, Normocephalic Oral: Moist Mucosa, No Gingival or Mucosal Lesions/ Ulcerations Neck: Supple, No JVD, Negative Carotid Bruits, Trachea Midline, Thyroid Normal Size and Texture Lungs: No rales, Diminished, Rhonchi, Short of Breath, Wheezes, - - Decreased breath sounds bilateral, bilateral rhonchi, expiratory wheezes. Cardiovascular: Normal S1, Normal S2, PMI Normal, Irregular Rate, Tachycardic Abdomen: Bowel Sounds Present, Soft, Non Tender, Non-Distended, No Hepato- splenomegaly, Obese Extremities: No clubbing, No cyanosis, Edema Skin: No rashes, No breakdown Lymphatic: No Cervical, Supraclavicular, or Inguinal Adenopathy Neurological: Cranial nerves II-XII grossly intact, Motor Exam 5/5 strength throughout Psych/Mental Status: Normal Affect, Appropriate, Alert and oriented to time, place, person, mood and affect Laboratory Results 03/27/20 06:49: WBC 20.8 H, RBC 4.34 L, Hgb 14.1, Hct 44.6, MCV 102.8 H, MCH 32.5 H, MCHC 31.6 L, RDW Std Deviation 57.0 H, RDW Coeff of Timothy 14.9 H, Plt Count 199, MPV 10.6, Immature Gran % (Auto) 0.900, Neut % (Auto) 45.6 L, Lymph % (Auto) 49.6 H, Delta % (Auto) 3.7, Eos % (Auto) 0.0, Baso % (Auto) 0.2, Absolute Neuts (auto) 9.5 H, Absolute Lymphs (auto) 10.30 H, Nucleated RBC % 0 03/27/20 06:49: PT 38.6 H, INR 4.0 H*, APTT 54.1 H 03/27/20 06:49: Sodium 138, Potassium 3.5, Chloride 96 L, Carbon Dioxide 36.0 H, Anion Gap 6, BUN 20 H, Creatinine 0.99, Estim Creat Clear Calc 57.53, Est GFR (MDRD) Af Amer 93, Est GFR (MDRD) Non-Af 77, BUN/Creatinine Ratio 20.1 H, Glucose 103, Calcium 9.2, Total Bilirubin 0.90, AST 26, ALT 45, Alkaline Phosphatase 83, Troponin I < 0.015, Total Protein 6.9, Albumin 2.9 L, Globulin 4.0, Albumin/Globulin Ratio 0.7 L 03/27/20 06:49: Lactic Acid 1.8 03/27/20 07:32: Specimen Type VASHTI, VBG pH 7.45 H, VBG pO2 42 H, VBG HCO3 32 H, VBG Total CO2 33, VBG O2 Sat (Calc) 79 H, VBG Base Excess 8 H, POC Mix VBG pCO2 Pt Tmp 45.4 Clinical Impression(s) from Imaging Studies Chest X-Ray 03/27/20 06:54 IMPRESSION: Chronic elevation of left hemidiaphragm. No evidence for acute cardiopulmonary pathology. Electronically Signed: Jayden Byers MD at 7:41 EST , Service support , Current Medications Acetaminophen (Acetaminophen 325 Mg Tablet) 650 mg PO Q6H PRN PRN PRN Reason: Pain Score 1-10/Temp > 100.7 F Albuterol Sulfate (Albuterol 2.5 Mg/3 Ml Vial.Neb.) 2.5 mg INHALATION Q2H PRN PRN PRN Reason: Shortness of Breath/Wheezing Albuterol/Ipratropium (Ipratropium/Albuterol Sulfate 3 Ml Ampul.Neb) 3 ml INHALATION Q4H.RT JEROME Allopurinol (Allopurinol 100 Mg Tablet) 200 mg PO DAILY JEROME Amiodarone HCl (Amiodarone 200 Mg Tablet) 200 mg PO DAILY JEROME Aspirin (Aspirin 81 Mg Tab.Chew) 81 mg PO DAILY JEROME Atorvastatin Calcium (Atorvastatin Calcium 20 Mg Tablet) 20 mg PO QHS JEROME Furosemide (Furosemide 40 Mg Tablet) 40 mg PO BID JEROME Cefepime HCl 2 gm/ Sodium (Chloride) 100 mls @ 200 mls/hr IV Q8 JEROME Levothyroxine Sodium (Levothyroxine 50 Mcg Tablet) 50 mcg PO DAILY JEROME Metoprolol Succinate (Metoprolol(Xl)Succ 50 Mg Tablet) 50 mg PO DAILY JEROME Ondansetron HCl (Ondansetron 4 Mg/2 Ml Vial) 4 mg IV Q8H PRN PRN PRN Reason: NAUSEA/VOMITING Senna/Docusate Sodium (Senna/Docusate Sodium 1 Tablet) 2 tablet PO BID PRN PRN PRN Reason: Constipation Sodium Chloride (0.9% Saline Lock 10 Ml Syringe) 10 - 40 ml IV UD PRN PRN Reason: SALINE FLUSH Tramadol HCl (Tramadol 50 Mg Tablet) 25 mg PO TID PRN PRN Reason: PAIN 1-10/FEVER Zolpidem Tartrate (Zolpidem Tartrate 5 Mg Tablet) 5 mg PO QHS PRN PRN PRN Reason: INSOMNIA Assessment/Plan All Active Problems (Last Updated 03/27/20 @ 09:[address] Liliya Pérez MD) Atrial fibrillation with RVR (Acute) Acute respiratory failure with hypoxia (Acute) COVID-19 (Acute) SARS pneumonia (Acute) This is an 80 years old male patient presented to the emergency room from the skilled nursing because of worsening shortness of breath and increasing oxygen requirement in context of recent discharge from the hospital after admission for COVID-19 pneumonia and acute hypoxic respiratory failure, found to have sepsis and A. fib with RVR and he is being admitted for evaluation and treatment. #1 acute on recently chronic hypoxic respiratory failure/recent COVID-19 pneumonia/sepsis: Chest x-ray reviewed, no significant acute findings. Patient was discharged 4 days ago from the hospital after COVID-19 pneumonia and respiratory failure, was discharged on Decadron and 4 L of oxygen. Today, he went up to 6 L of oxygen and was placed on BiPAP in the ED. ABG reviewed as above. Plan: Admit to [facility] COVID-19 floor, isolation precautions, blood culture, urine culture, urinalysis, start empiric IV antibiotics, infectious disease consult, bronchodilators, check BNP, repeat CBC and BMP tomorrow morning, PT OT evaluation and treatment. #2 A. fib with RVR: In the setting of history of paroxysmal atrial fibrillation. In the ED, heart rate was in the 150s, slowed down to 120s at this time. Patient has been febrile which could be the reason for this. Plan to monitor, continue amiodarone and metoprolol, hold Coumadin. INR is 4. Plan to repeat INR tomorrow morning. #3 hypertension: Blood pressure stable, continue metoprolol. #4 chronic lymphocytic leukemia: In remission, stable. #5 gout: Stable, continue allopurinol. #6 chronic diastolic CHF: No obvious findings consistent with acute CHF. Chest x-ray reviewed. BMP ordered. Plan to continue aspirin, statins, beta-blockers. #7 CODE STATUS: Discussed with the patient and initially, he elected to go with full code including intubation mechanical ventilation. He stated that this what his wants him to do because she does not want to lose him. There is a document signed from the skilled nursing stating that patient is DNR CCA. I informed the patient that he has a signed document of DNR CCA and he elected to go with this signed document. He declined resuscitation, intubation, chest compressions. CODE STATUS is DNR CCA, no intubation. #8 DVT prophylaxis: INR is 4. This note was generated with [employer] dictation software. It may contain incorrect words, spelling, and punctuation that were not noted in checking the note be fore signing. Inpatient E&M: 82941 Init Hosp L3
[2020-03-27 10:18] LABS: Mucous, Urine 0 SEEN /hpf (<or=2+); Red Blood Cells-Urine 0 SEEN /hpf (0-5)
[2020-03-27 10:24] LABS: Color, Urine Yellow (Yellow); Glucose, Dipstick Normal (Normal); Ketone-Dipstick 5 mg/dl (Negative); Leukocyte Esterase-Dipstick 25 /ul (Negative); Nitrite-Dipstick Negative (Negative); Occult Blood-Urine Negative /ul (Negative); Protein-Dipstick 30 mg/dl (Negative); Specific Gravity, Urine 1.015 (1.002-1.030); Urine Bilirubin Dipstick Negative (Negative); Urine Clarity Sl. Cloudy (Clear); Urine Urobilinogen 1 mg/dl (Normal)
[2020-03-27 10:33] LABS: Bacteria RARE /hpf (None Seen); Squamous Epithelial Cells - UA 0-5 SEEN /hpf (0-5); White Blood Cells 0-5 SEEN /hpf (0-5)
[2020-03-27] MEDS: Allopurinol 100 MG Tablet 200 MG PO (10:46)
[2020-03-27] MEDS: Furosemide 40 MG Tablet PO ×2 (10:46→21:16)
[2020-03-27] MEDS: Aspirin 81 MG TAB.CHEW PO (10:46)
[2020-03-27] MEDS: Amiodarone 200 MG Tablet PO (10:46)
[2020-03-27] MEDS: Levothyroxine 50 MCG Tablet PO (10:46)
[2020-03-27 11:29] LABS: BNP,B-Type NATRIURETIC PEPTIDE 273.8 pg/mL (0-100)
--- NOTE | 2020-03-27 11:42 | CON.PCM_ITS ---
Problem List (1) Pneumonia Status: Acute Reason for Consult: pneumonia Consulted by: Dr. Pérez History of Present Illness: The patient is a 80 year old M with covid starting around 03/11/20, also sick. Admitted 03/20, covid (+), given remdesivir and dex, discharged on dex. Feeling better until yesterday AM with new onset cough with chan sputum and dyspnea. No orthopnea, no fever, no aches, no n/v/d. Came to ED, given azithro/ceftriaxone, admitted on cefepime. Full ROS performed and neg except as noted above. - Medical History Past Medical History (Chronic Problems): Chronic Problems (Last Updated 03/27/20 @ 09:[address] 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) Allergies/Adverse Reactions: Allergies Penicillins Allergy (Severe, Verified 03/27/20 06:45) Hives Home Medications: Ambulatory Orders Medication Instructions Recorded Multivitamins,Therapeutic 1 tab PO DAILY@0800 #30 tab 01/20/13 [Multivitamin] Cholecalciferol (Vitamin D3) 2,000 unit PO DAILY 05/01/19 [Vitamin D3] Fluticasone 0.05% [Flonase Nasal 1 spray NASAL DAILY 05/01/19 [place]] Aspirin [Aspirin, Baby] 81 mg PO DAILY@0800 #90 tab.chew 05/03/19 allopurinol 100 mg tablet 200 mg PO DAILY tab 08/19/19 mecobalamin (vitamin B12) 1,000 1,000 mcg PO DAILY 08/19/19 mcg chewable tablet amiodarone 200 mg tablet 200 mg PO DAILY tab 01/31/20 furosemide 40 mg tablet 40 mg PO BID tab 01/31/20 metoprolol succinate 50 mg 50 mg PO DAILY #30 tab 02/22/20 tablet,extended release 24 hr Atorvastatin Calcium [Lipitor] 20 mg PO DAILY 03/20/20 Levothyroxine [Synthroid] 50 mcg PO DAILY 03/20/20 Albuterol Sulfate [Albuterol 2 puff IH Q4H #1 inhaler 03/23/20 Sulfate HFA] Benzonatate [Tessalon Perle] 100 mg PO Q4H PRN PRN #30 cap 03/23/20 Guaifenesin [Robitussin] 10 ml PO Q6H PRN PRN #1 bottle 03/23/20 Inhaler, Assist Devices [Pocket 1 ea INHALATION PRN PRN #1 spacer 03/23/20 [place]] Warfarin [Coumadin] 7.5 mg PO DAILY@1700 #30 tab 03/23/20 dexAMETHasone [Dexamethasone] 6 mg PO DAILY #6 tab 03/23/20 Tramadol HCl 25 mg PO TID PRN 03/27/20 - Social History SMOKING STATUS:: Former smoker Vital Signs Temp Pulse Resp BP Pulse Ox 100.1 F H 115 H 29 H 116/85 H 95 03/27/20 08:38 03/27/20 10:56 03/27/20 10:56 03/27/20 08:38 03/27/20 10:56 Oxygen Flow Rate (L/min) 6 Oxygen Delivery Method Bi-pap Weight: 116.6 kg Body Mass Index (BMI) 37.9 Laboratory Tests Past 24 Hrs 03/27/20 03/27/20 03/27/20 06:49 06:49 06:49 WBC 20.8 H RBC 4.34 L Hgb 14.1 Hct 44.6 MCV 102.8 H MCH 32.5 H MCHC 31.6 L RDW Std Deviation 57.0 H RDW Coeff of Timothy 14.9 H Plt Count 199 MPV 10.6 Immature Gran % (Auto) 0.900 Neut % (Auto) 45.6 L Lymph % (Auto) 49.6 H [place] % (Auto) 3.7 Eos % (Auto) 0.0 Baso % (Auto) 0.2 Absolute Neuts (auto) 9.5 H Absolute Lymphs (auto) 10.30 H Nucleated RBC % 0 PT 38.6 H INR 4.0 H* APTT 54.1 H Specimen Type VBG pH VBG pO2 VBG HCO3 VBG Total CO2 VBG O2 Sat (Calc) VBG Base Excess POC Mix VBG pCO2 Pt Tmp Sodium 138 Potassium 3.5 Chloride 96 L Carbon Dioxide 36.0 H Anion Gap 6 BUN 20 H Creatinine 0.99 Estim Creat Clear Calc 57.53 Est GFR (MDRD) Af Amer 93 Est GFR (MDRD) Non-Af 77 BUN/Creatinine Ratio 20.1 H Glucose 103 Lactic Acid Calcium 9.2 Total Bilirubin 0.90 AST 26 ALT 45 Alkaline Phosphatase 83 Troponin I < 0.015 B-Natriuretic Peptide Total Protein 6.9 Albumin 2.9 L Globulin 4.0 Albumin/Globulin Ratio 0.7 L Urine Color Urine Clarity Urine pH Ur Specific [place] Urine Protein Urine Glucose (UA) Urine Ketones Urine Occult Blood Urine Nitrite Urine Bilirubin Urine Urobilinogen Ur Leukocyte Esterase Urine RBC Urine WBC Ur Squamous Epith Cells Urine Bacteria Urine Mucus 03/27/20 03/27/20 03/27/20 06:49 07:17 07:32 WBC RBC Hgb Hct MCV MCH MCHC RDW Std Deviation RDW Coeff of Timothy Plt Count MPV Immature Gran % (Auto) Neut % (Auto) Lymph % (Auto) [place] % (Auto) Eos % (Auto) Baso % (Auto) Absolute Neuts (auto) Absolute Lymphs (auto) Nucleated RBC % PT INR APTT Specimen Type VASHTI VBG pH 7.45 H VBG pO2 42 H VBG HCO3 32 H VBG Total CO2 33 VBG O2 Sat (Calc) 79 H VBG Base Excess 8 H POC Mix VBG pCO2 Pt Tmp 45.4 Sodium Potassium Chloride Carbon Dioxide Anion Gap BUN Creatinine Estim Creat Clear Calc Est GFR (MDRD) Af Amer Est GFR (MDRD) Non-Af BUN/Creatinine Ratio Glucose Lactic Acid 1.8 Calcium Total Bilirubin AST ALT Alkaline Phosphatase Troponin I B-Natriuretic Peptide 273.8 H Total Protein Albumin Globulin Albumin/Globulin Ratio Urine Color Urine Clarity Urine pH Ur Specific [place] Urine Protein Urine Glucose (UA) Urine Ketones Urine Occult Blood Urine Nitrite Urine Bilirubin Urine Urobilinogen Ur Leukocyte Esterase Urine RBC Urine WBC Ur Squamous Epith Cells Urine Bacteria Urine Mucus 03/27/20 10:15 WBC RBC Hgb Hct MCV MCH MCHC RDW Std Deviation RDW Coeff of Timothy Plt Count MPV Immature Gran % (Auto) Neut % (Auto) Lymph % (Auto) [place] % (Auto) Eos % (Auto) Baso % (Auto) Absolute Neuts (auto) Absolute Lymphs (auto) Nucleated RBC % PT INR APTT Specimen Type VBG pH VBG pO2 VBG HCO3 VBG Total CO2 VBG O2 Sat (Calc) VBG Base Excess POC Mix VBG pCO2 Pt Tmp Sodium Potassium Chloride Carbon Dioxide Anion Gap BUN Creatinine Estim Creat Clear Calc Est GFR (MDRD) Af Amer Est GFR (MDRD) Non-Af BUN/Creatinine Ratio Glucose Lactic Acid Calcium Total Bilirubin AST ALT Alkaline Phosphatase Troponin I B-Natriuretic Peptide Total Protein Albumin Globulin Albumin/Globulin Ratio Urine Color Yellow Urine Clarity Sl. Cloudy Urine pH 6.0 Ur Specific [place] 1.015 Urine Protein 30 H Urine Glucose (UA) Normal Urine Ketones 5 H Urine Occult Blood Negative Urine Nitrite Negative Urine Bilirubin Negative Urine Urobilinogen 1 H Ur Leukocyte Esterase 25 H Urine RBC 0 SEEN Urine WBC 0-5 SEEN Ur Squamous Epith Cells 0-5 SEEN Urine Bacteria RARE Urine Mucus 0 SEEN - Other Studies Radiology: [] reviewed Other Studies: [] Route of nutrition/ use of supplements: [] Nutritional Intake: [] IV Site: [] Hodges Catheter: [] - Physical Exam General: Alert, Oriented x3, Cooperative HEENT: Atraumatic, PERRLA, EOMI Neck: Supple, No Nodes Lungs: Rales - R base Cardiovascular: Irregular Rate Abdomen: Soft, Non Tender, Non-Distended Extremities: No edema Skin: No rashes IV Site: Peripheral, without redness Musculoskeletal: No Tenderness to Palpation of Joints or Extremities Neurological: Cranial nerves II-XII grossly intact - Assessment/Plan Antibiotics: [] Assessment/Plan: [] Active and Suspected Problems (Last Updated 03/27/20 @ 09:[address] Liliya Pérez MD) Atrial fibrillation with RVR (Acute) Acute respiratory failure with hypoxia (Acute) COVID-19 (Acute) SARS pneumonia (Acute) sepsis due to pneumonia with recent covid - suspect bacterial cause. Will check urine Ags, sputum cx. Agree with cefepime. In iso. Covid sx started 03/11/20, covid (+) 03/20. Thank you, will follow, d/w Dr. Pérez.
--- NOTE | 2020-03-27 14:32 | CHAPLAIN ---
Type of Pastoral Visit ___ Initial Visit ___ Follow-up Visit ___ On-call Visit ___ General Patient Visit ___ Spiritual Assessment ___ Family Conference ___ Bereavement ___ Rapid Response ___ Code Blue _x__ Other (describe below) Pastoral Care Referral From ___ Patient ___ Family ___ Nurse ___ Physician ___ Healthcare Specialist ___ Grades 1 Thru 5 Teacher _x__ Other (describe below) Sacrament/Intervention _x__ Active listening ___ Anointing ___ Gnosticism ___ Bereavement ___ Communion ___ Dinah exploration ___ ___ Life review ___ Prayer ___ Reconciliation ___ Sacrament of Sick ___ Supportive presence ___ Wedding ___ Other (describe below) Pastoral Comments phone call into room where patient is in isolation; pt welcomed call but stated he had no concerns at this time
--- NOTE | 2020-03-27 15:03 | CASEMGMT ---
Pt is here from [facility], was discharged from the hospital on Thursday. Pt did have oxygen ordered from [facility] on the last admission. Pt normally lives over at [facility] in the assisted living with his . SW spoke w/Hope from [facility], she states pt seemed to be doing better and then got sent to the hospital. TERRANCE will continue to follow for appropriate discharge plan, to see if pt can return to [facility] or may need [place] [facility] [place]. AGLINA Schultz
--- NOTE | 2020-03-27 18:29 | PCS.PANDOC ---
PANDEMIC DOCUMENTATION INITIATED: Date: 03/27 Time: 1829
[2020-03-27] MEDS: Atorvastatin Calcium 20 MG Tablet PO (21:16)
[2020-03-27] MEDS: Metoprolol(XL)Succ 50 MG Tablet PO (21:17)
[2020-03-27] MEDS: Acetaminophen 325 MG Tablet 650 MG PO (21:17)
[2020-03-28] VITALS (24 sets, daily range): BP systolic 98–133; BP diastolic 53–90; PULSE 86–138; RESP 16–30; TEMP 36.6–38.7; O2SAT 83–99
[2020-03-28] MEDS: Ipratropium/Albuterol Sulfate 3 ML AMPUL.NEB INHALATION ×6 (00:25→19:38)
--- NOTE | 2020-03-28 00:25 | CPS ---
decreased O2 to 3 lpm
--- NOTE | 2020-03-28 04:51 | CPS ---
decreased O2 to 2 lpm
[2020-03-28] MEDS: 0.9% Saline Lock 10 ML Syringe IV ×2 (05:58→19:48)
[2020-03-28] MEDS: Acetaminophen 325 MG Tablet 650 MG PO ×3 (06:01→19:48)
[2020-03-28] MEDS: Amiodarone 200 MG Tablet PO (06:01)
[2020-03-28 07:49] LABS: Absolute Lymphocyte Count 5.97 X10^3/uL (0.83-4.51); Absolute Neutrophil Count 7.7 X10^3/uL (2.0-7.7); Basophil# 0.02 X10^3/uL; Basophil% 0.1 % (0-1); Hematocrit 43.3 % (40-54); Hemoglobin 13.3 g/dL (13.0-16.5); Lymphocyte # 5.97 X10^3/ul (4.0); Lymphocyte % 41.5 % (19-41); Mean Corp Hgb Conc 30.7 g/dL (32-36); Mean Corpuscular Hgb 31.6 pg (27.0-32.0); Mean Corpuscular Volume 102.9 fL (80-94); Mean Platelet Vol. 10.8 fl (6.2-12.0); Monocyte% 4.2 % (0-10); NRBC Flagged by Analyzer 0 % (0-5); Neutrophil # 7.65 X10^3/uL (2.7-7.7); Neutrophil % 53.2 % (47-70); POSITIVE DIFFERENTIAL YES; POSITIVE MORPHOLOGY YES; Platelet Count 160 K/mm3 (150-450); RBC Distribution Width SD 56.1 fl (35.1-43.9); Red Blood Count 4.21 M/mm3 (4.6-6.2); White Blood Count 14.4 K/mm3 (4.4-11.0)
[2020-03-28 07:50] LABS: Differential Indicated SCAN CRITERIA MET
[2020-03-28 08:08] LABS: Prothrombin Time (Protime)PT. 37.6 SECONDS (11.7-14.9)
[2020-03-28 08:20] LABS: Anion Gap 7 (5-15); BUN 19 mg/dL (7-18); BUN/Creat Ratio 22.6 RATIO (10-20); Calcium,Total 8.8 mg/dL (8.5-10.1); Chloride 96 mmol/L (98-107); Creatinine, Serum 0.84 mg/dL (0.70-1.30); EST Glomerular Filtration Rate 93 mL/min (>60); Est Glom Filt Rate - Afr Amer 113 mL/min (>60); Glucose 94 mg/dL (74-106); Potassium 3.2 mmol/L (3.5-5.1); Sodium Level 139 mmol/L (136-145)
[2020-03-28] MEDS: Levothyroxine 50 MCG Tablet PO (08:27)
[2020-03-28] MEDS: Furosemide 40 MG Tablet PO ×2 (08:28→19:48)
[2020-03-28] MEDS: Allopurinol 100 MG Tablet 200 MG PO (08:28)
[2020-03-28] MEDS: Aspirin 81 MG TAB.CHEW PO (08:28)
[2020-03-28 08:57] LABS: International Normalized Ratio 3.8
--- NOTE | 2020-03-28 09:54 | PN_ITS ---
Patient Problems: Active and Suspected Problems (Last Updated 03/27/20 @ 09:[address] Liliya Pérez MD) Pneumonia (Acute) Atrial fibrillation with RVR (Acute) Acute respiratory failure with hypoxia (Acute) COVID-19 (Acute) SARS pneumonia (Acute) Subjective: Chief complaint: Follow-up after admission for acute on recently chronic hypoxic respiratory failure, bacterial pneumonia, recent Covid pneumonia with sepsis as well as A. fib with RVR. Patient seen and examined. No acute events overnight. Today, patient is sitting on the chair, on oxygen by nasal cannula at 2 L. He is feeling significantly better. Still having cough with no sputum. No other complaints. He is afebrile, blood pressure and heart rate are stable, pulse ox is 94% on 2 L. - Physical Exam Vitals/I&O's: Vital Signs Temp Pulse Resp BP Pulse Ox 97.8 F 114 H 16 123/77 H 83 03/28/20 09:32 03/28/20 09:44 03/28/20 09:32 03/28/20 09:32 03/28/20 09:33 Oxygen Flow Rate (L/min) 2 Oxygen Delivery Method Nasal Cannula Weight: 257 lb 0.944 oz Body Mass Index (BMI) 37.9 Intake and Output for Last 24 Hours 03/26/20 03/27/20 03/28/20 23:59 23:59 23:59 Intake Total 705 / 705 800 / 800 Output Total 850 / 850 975 / 975 Balance -145 / -145 -175 / -175 General: Alert, Oriented x3, Cooperative, - - Minimally short of breath. HEENT: Atraumatic, PERRLA, EOMI, Normocephalic Oral: Moist Mucosa, No Gingival or Mucosal Lesions/ Ulcerations Neck: Supple, No JVD, Negative Carotid Bruits, Trachea Midline, Thyroid Normal Size and Texture Lungs: No rhonchi, No wheeze, Diminished, Rales, - - Decreased breath sounds at the bases, faint right basilar crackles. Cardiovascular: Normal S1, Normal S2, No murmurs, PMI Normal, Irregular Rate Abdomen: Bowel Sounds Present, Soft, Non Tender, Non-Distended, No Hepato- splenomegaly, Obese Extremities: No clubbing, No cyanosis, Edema Skin: No rashes, No breakdown Lymphatic: No Cervical, Supraclavicular, or Inguinal Adenopathy Neurological: Cranial nerves II-XII grossly intact, Neuro grossly intact Psych/Mental Status: Normal Affect, Appropriate, Alert and oriented to time, place, person, mood and affect Microbiology Past 72 Hours 03/27/20 10:15 Urine, Clean Catch Legionella Antigen - Final 03/27/20 10:15 Urine, Clean Catch Streptococcus pneumoniae Antigen (M - Final Laboratory Results 03/27/20 07:17: B-Natriuretic Peptide 273.8 H 03/27/20 10:15: Urine Color Yellow, Urine Clarity Sl. Cloudy, Urine pH 6.0, Ur Specific [place] 1.015, Urine Protein 30 H, Urine Glucose (UA) Normal, Urine Ketones 5 H, Urine Occult Blood Negative, Urine Nitrite Negative, Urine Bilirubin Negative, Urine Urobilinogen 1 H, Ur Leukocyte Esterase 25 H, Urine RBC 0 SEEN, Urine WBC 0-5 SEEN, Ur Squamous Epith Cells 0-5 SEEN, Urine Bacteria RARE, Urine Mucus 0 SEEN 03/28/20 06:25: WBC 14.4 H, RBC 4.21 L, Hgb 13.3, Hct 43.3, MCV 102.9 H, MCH 31.6, MCHC 30.7 L, RDW Std Deviation 56.1 H, RDW Coeff of Timothy 15.0 H, Plt Count 160, MPV 10.8, Immature Gran % (Auto) 1.000 H, Neut % (Auto) 53.2, Lymph % (Auto) 41.5 H, [place] % (Auto) 4.2, Eos % (Auto) 0.0, Baso % (Auto) 0.1, Absolute Neuts (auto) 7.7, Absolute Lymphs (auto) 5.97 H, Nucleated RBC % 0 03/28/20 06:25: PT 37.6 H, INR 3.8 H* 03/28/20 06:25: Sodium 139, Potassium 3.2 L, Chloride 96 L, Carbon Dioxide 36.0 H, Anion Gap 7, BUN 19 H, Creatinine 0.84, Estim Creat Clear Calc 67.80, Est GFR (MDRD) Af Amer 113, Est GFR (MDRD) Non-Af 93, BUN/Creatinine Ratio 22.6 H, Glucose 94, Calcium 8.8 Current Medications Acetaminophen (Acetaminophen 325 Mg Tablet) 650 mg PO Q6H PRN PRN PRN Reason: Pain Score 1-10/Temp > 100.7 F Last Admin: 03/28/20 06:01 Dose: 650 mg Documented by: Albuterol Sulfate (Albuterol 2.5 Mg/3 Ml Vial.Neb.) 2.5 mg INHALATION Q2H PRN PRN PRN Reason: Shortness of Breath/Wheezing Albuterol/Ipratropium (Ipratropium/Albuterol Sulfate 3 Ml Ampul.Neb) 3 ml INHALATION Q4H.RT [facility] Last Admin: 03/28/20 07:22 Dose: 3 ml Documented by: Allopurinol (Allopurinol 100 Mg Tablet) 200 mg PO DAILY [facility] Last Admin: 03/28/20 08:28 Dose: 200 mg Documented by: Amiodarone HCl (Amiodarone 200 Mg Tablet) 200 mg PO DAILY [facility] Last Admin: 03/28/20 06:01 Dose: 200 mg Documented by: Aspirin (Aspirin 81 Mg Tab.Chew) 81 mg PO DAILY [facility] Last Admin: 03/28/20 08:28 Dose: 81 mg Documented by: Atorvastatin Calcium (Atorvastatin Calcium 20 Mg Tablet) 20 mg PO QHS [facility] Last Admin: 03/27/20 21:16 Dose: 20 mg Documented by: Furosemide (Furosemide 40 Mg Tablet) 40 mg PO BID [facility] Last Admin: 03/28/20 08:28 Dose: 40 mg Documented by: Cefepime HCl 2 gm/ Sodium (Chloride) 100 mls @ 200 mls/hr IV Q8 [facility] Last Infusion: 03/28/20 06:31 Dose: Infused Documented by: Levothyroxine Sodium (Levothyroxine 50 Mcg Tablet) 50 mcg PO DAILY [facility] Last Admin: 03/28/20 08:27 Dose: 50 mcg Documented by: Metoprolol Succinate (Metoprolol(Xl)Succ 50 Mg Tablet) 50 mg PO [facility] Last Admin: 03/27/20 21:17 Dose: 50 mg Documented by: Ondansetron HCl (Ondansetron 4 Mg/2 Ml Vial) 4 mg IV Q8H PRN PRN PRN Reason: NAUSEA/VOMITING Senna/Docusate Sodium (Senna/Docusate Sodium 1 Tablet) 2 tablet PO BID PRN PRN PRN Reason: Constipation Sodium Chloride (0.9% Saline Lock 10 Ml Syringe) 10 - 40 ml IV UD PRN PRN Reason: SALINE FLUSH Last Admin: 03/28/20 05:58 Dose: 10 ml Documented by: Tramadol HCl (Tramadol 50 Mg Tablet) 25 mg PO TID PRN PRN Reason: PAIN 1-10/FEVER Zolpidem Tartrate (Zolpidem Tartrate 5 Mg Tablet) 5 mg PO QHS PRN PRN PRN Reason: INSOMNIA Medical Necessity - Tobacco Use Smoking Status: Former smoker Assessment/Plan All Active Problems (Last Updated 03/27/20 @ 09:[address] Liliya Pérez MD) Pneumonia (Acute) Atrial fibrillation with RVR (Acute) Acute respiratory failure with hypoxia (Acute) COVID-19 (Acute) SARS pneumonia (Acute) This is an 80 years old male patient presented to the emergency room from the long term because of worsening shortness of breath and increasing oxygen requirement in context of recent discharge from the hospital after admission for COVID-19 pneumonia and acute hypoxic respiratory failure, found to have sepsis and A. fib with RVR and he is being admitted for evaluation and treatment. #1 acute on recently chronic hypoxic respiratory failure: This is attributed to new bacterial pneumonia in addition to recent COVID-19 pneumonia. Yesterday, patient was on BiPAP. Today, patient is significantly better, he is down to nasal cannula on 2 L. Pneumococcal antigen reactive negative. Blood, urine and sputum cultures are pending. Patient is on IV cefepime. He has been afebrile, WBC is trending down. Plan to continue same treatment. #2 right lower lobe pneumonia/sepsis: Probably healthcare associated. Patient is on IV cefepime. He has been afebrile, WBC trending down. Cultures are pending. Plan as above. #3 recent COVID-19 pneumonia: Completed IV remdesivir and Decadron 5 days ago. Plan as above, infectious disease on the case. #3 A. fib with RVR: Heart rate is down to 80s, blood pressure stable. Continue amiodarone and metoprolol for rate control. Coumadin held because INR is elevated, today's INR is 2.8. Plan to keep holding Coumadin, repeat INR tomorrow morning. #4 hypertension: Blood pressure stable, continue metoprolol. #5 chronic lymphocytic leukemia: In remission, stable. #6 gout: Stable, continue allopurinol. #7 chronic diastolic CHF: No obvious findings consistent with acute CHF. Chest x-ray reviewed. BMP ordered. Plan to continue aspirin, statins, beta-blockers. #8 CODE STATUS: DNR CCA, no intubation. #9 DVT prophylaxis: INR is 3.8. This note was generated with [employer] dictation software. It may contain incorrect words, spelling, and punctuation that were not noted in checking the note before signing. Inpatient E&M: 13726 Subs Hosp L2
[2020-03-28] MEDS: guaiFENesin 10 ML UDC (200MG/10ML) PO ×2 (11:12→18:24)
--- NOTE | 2020-03-28 11:39 | NURSING ---
RNCM Re-admission note: Please refer to SW Note for additional documentation. Patient is from [facility]. Was admitted 03/20-03/23/20 for COVID PNA and dc'd on 3LNC oxygen from [facility]. Re-admitted 03/27/20 for Acute on Chronic Respiratory Failure, recent COVID. Primary Insurance- [facility], [facility]- [facility]. Plan to stay x1 more day and DC tomorrow back to [facility] with oxygen. 96% on 2L current. RNCM will continue to follow for any additional needs that should arise. SERGIO Cid
[2020-03-28] MEDS: Metoprolol Tartrate 25 MG Tablet 50 MG PO (11:54)
--- NOTE | 2020-03-28 16:15 | PN.ID_ITS ---
Patient Problems: Active and Suspected Problems (Last Updated 03/27/20 @ 09:[address] Liliya Pérez MD) Pneumonia (Acute) Atrial fibrillation with RVR (Acute) Acute respiratory failure with hypoxia (Acute) COVID-19 (Acute) SARS pneumonia (Acute) Subjective: Feeling better, improved fever, cough improved - Physical Exam Vitals/I&O's: Vital Signs Temp Pulse Resp BP Pulse Ox 99.6 F H 95 16 102/53 L 92 03/28/20 15:44 03/28/20 15:44 03/28/20 15:44 03/28/20 15:44 03/28/20 15:44 Oxygen Flow Rate (L/min) 2 Oxygen Delivery Method Nasal Cannula Weight: 116.6 kg Body Mass Index (BMI) 37.9 Intake and Output for Last 24 Hours 03/26/20 03/27/20 03/28/20 23:59 23:59 23:59 Intake Total 705 / 705 1250 / 1250 Output Total 850 / 850 1475 / 1475 Balance -145 / -145 -225 / -225 General: Alert, Cooperative, No apparent distress Lungs: Diminished, Rhonchi Cardiovascular: Regular rate, Regular Rhythm Abdomen: Soft, Non Tender, Non-Distended Skin: No rashes Microbiology Past 72 Hours 03/27/20 09:17 Urine, Clean Catch Urine Culture - Preliminary Culture exhibits no growth. 03/28/20 03:05 Sputum, Expectorated/Coughed Gram Stain - Final 03/27/20 10:15 Urine, Clean Catch Legionella Antigen - Final 03/27/20 10:15 Urine, Clean Catch Streptococcus pneumoniae Antigen (M - Final Laboratory Results 03/28/20 06:25: WBC 14.4 H, RBC 4.21 L, Hgb 13.3, Hct 43.3, MCV 102.9 H, MCH 31.6, MCHC 30.7 L, RDW Std Deviation 56.1 H, RDW Coeff of [place] 15.0 H, Plt Count 160, MPV 10.8, Immature Gran % (Auto) 1.000 H, Neut % (Auto) 53.2, Lymph % (Auto) 41.5 H, [place] % (Auto) 4.2, Eos % (Auto) 0.0, Baso % (Auto) 0.1, Absolute Neuts (auto) 7.7, Absolute Lymphs (auto) 5.97 H, Nucleated RBC % 0 03/28/20 06:25: PT 37.6 H, INR 3.8 H* 03/28/20 06:25: Sodium 139, Potassium 3.2 L, Chloride 96 L, Carbon Dioxide 36.0 H, Anion Gap 7, BUN 19 H, Creatinine 0.84, Estim Creat Clear Calc 67.80, Est GFR (MDRD) Af Amer 113, Est GFR (MDRD) Non-Af 93, BUN/Creatinine Ratio 22.6 H, Glucose 94, Calcium 8.8 Current Medications Acetaminophen (Acetaminophen 325 Mg Tablet) 650 mg PO Q6H PRN PRN PRN Reason: Pain Score 1-10/Temp > 100.7 F Last Admin: 03/28/20 13:20 Dose: 650 mg Documented by: Albuterol Sulfate (Albuterol 2.5 Mg/3 Ml Vial.Neb.) 2.5 mg INHALATION Q2H PRN PRN PRN Reason: Shortness of Breath/Wheezing Albuterol/Ipratropium (Ipratropium/Albuterol Sulfate 3 Ml Ampul.Neb) 3 ml INHALATION Q4H.RT [facility] Last Admin: 03/28/20 15:00 Dose: 3 ml Documented by: Allopurinol (Allopurinol 100 Mg Tablet) 200 mg PO DAILY [facility] Last Admin: 03/28/20 08:28 Dose: 200 mg Documented by: Amiodarone HCl (Amiodarone 200 Mg Tablet) 200 mg PO DAILY [facility] Last Admin: 03/28/20 06:01 Dose: 200 mg Documented by: Aspirin (Aspirin 81 Mg Tab.Chew) 81 mg PO DAILY [facility] Last Admin: 03/28/20 08:28 Dose: 81 mg Documented by: Atorvastatin Calcium (Atorvastatin Calcium 20 Mg Tablet) 20 mg PO QHS [facility] Last Admin: 03/27/20 21:16 Dose: 20 mg Documented by: Furosemide (Furosemide 40 Mg Tablet) 40 mg PO BID [facility] Last Admin: 03/28/20 08:28 Dose: 40 mg Documented by: Guaifenesin (Guaifenesin 10 Ml Udc (200mg/10ml)) 10 ml PO Q6H PRN PRN PRN Reason: COUGH/CONGESTION Last Admin: 03/28/20 11:12 Dose: 10 ml Documented by: Cefepime HCl 2 gm/ Sodium (Chloride) 100 mls @ 200 mls/hr IV Q8 [facility] Last Infusion: 03/28/20 15:12 Dose: Infused Documented by: Levothyroxine Sodium (Levothyroxine 50 Mcg Tablet) 50 mcg PO DAILY [facility] Last Admin: 03/28/20 08:27 Dose: 50 mcg Documented by: Metoprolol Succinate (Metoprolol(Xl)Succ 50 Mg Tablet) 50 mg PO HS [facility] Last Admin: 03/27/20 21:17 Dose: 50 mg Documented by: Ondansetron HCl (Ondansetron 4 Mg/2 Ml Vial) 4 mg IV Q8H PRN PRN PRN Reason: NAUSEA/VOMITING Senna/Docusate Sodium (Senna/Docusate Sodium 1 Tablet) 2 tablet PO BID PRN PRN PRN Reason: Constipation Sodium Chloride (0.9% Saline Lock 10 Ml Syringe) 10 - 40 ml IV UD PRN PRN Reason: SALINE FLUSH Last Admin: 03/28/20 05:58 Dose: 10 ml Documented by: Tramadol HCl (Tramadol 50 Mg Tablet) 25 mg PO TID PRN PRN Reason: PAIN 1-10/FEVER Zolpidem Tartrate (Zolpidem Tartrate 5 Mg Tablet) 5 mg PO QHS PRN PRN PRN Reason: INSOMNIA Medical Necessity - Tobacco Use Smoking Status: Former smoker Route of nutrition/ use of supplements: [] Nutritional Intake: [] IV Site: [] Hodges Catheter: [] - Assessment/Plan Antibiotics: [] Assessment/Plan: [] Active and Suspected Problems (Last Updated 03/27/20 @ 09:[address] Liliya Pérez MD) Atrial fibrillation with RVR (Acute) Acute respiratory failure with hypoxia (Acute) COVID-19 (Acute) SARS pneumonia (Acute) sepsis due to pneumonia with recent covid - Cont with cefepime. In iso. Covid sx started 03/11/20, covid (+) 03/20. Feeling better, fever improved, sputum showing GPC on gram stain. Will follow
[2020-03-28] MEDS: Metoprolol(XL)Succ 50 MG Tablet PO (18:23)
[2020-03-28] MEDS: traMADol 50 MG Tablet 25 MG PO (18:23)
[2020-03-28] MEDS: Atorvastatin Calcium 20 MG Tablet PO (19:48)
[2020-03-28] MEDS: Mag Hydrox/Al Hydrox/Simeth 30 ML UDC PO (21:06)
[2020-03-29] VITALS (44 sets, daily range): BP systolic 94–196; BP diastolic 62–171; PULSE 2–159; RESP 16–122; TEMP 37.1–38.2; O2SAT 81–96
[2020-03-29] MEDS: Acetaminophen 325 MG Tablet 650 MG PO ×2 (03:16→13:19)
[2020-03-29] MEDS: 0.9% Saline Lock 10 ML Syringe IV ×4 (05:07→23:26)
[2020-03-29] MEDS: traMADol 50 MG Tablet 25 MG PO ×2 (05:14→17:06)
[2020-03-29 06:50] LABS: Absolute Lymphocyte Count 5.42 X10^3/uL (0.83-4.51); Basophil# 0.03 X10^3/uL; Basophil% 0.2 % (0-1); Eosinophil# 0.03 X10^3/uL; Eosinophils% 0.2 % (0-5); Hematocrit 39.2 % (40-54); Hemoglobin 12.8 g/dL (13.0-16.5); Lymphocyte # 5.42 X10^3/ul (4.0); Lymphocyte % 41.4 % (19-41); Mean Corp Hgb Conc 32.7 g/dL (32-36); Mean Platelet Vol. 11.1 fl (6.2-12.0); Monocyte# 0.53 X10^3/uL; Monocyte% 4.1 % (0-10); NRBC Flagged by Analyzer 0 % (0-5); Neutrophil # 6.95 X10^3/uL (2.7-7.7); Neutrophil % 53.2 % (47-70); POSITIVE DIFFERENTIAL YES; POSITIVE MORPHOLOGY YES; Platelet Count 137 K/mm3 (150-450); RBC Distribution Width CV 15.1 % (11.6-14.6); Red Blood Count 3.88 M/mm3 (4.6-6.2); White Blood Count 13.1 K/mm3 (4.4-11.0)
[2020-03-29 06:54] LABS: Differential Indicated SCAN CRITERIA MET
[2020-03-29 06:59] LABS: International Normalized Ratio 3.1; Prothrombin Time (Protime)PT. 31.6 SECONDS (11.7-14.9)
[2020-03-29] MEDS: Ipratropium/Albuterol Sulfate 3 ML AMPUL.NEB INHALATION ×5 (07:02→23:36)
[2020-03-29 07:09] LABS: Differential Comment SCANNED; Reactive Lymphocyte 1+
[2020-03-29 07:26] LABS: Anion Gap 9 (5-15); BUN 21 mg/dL (7-18); BUN/Creat Ratio 23.9 RATIO (10-20); Calcium,Total 8.3 mg/dL (8.5-10.1); Chloride 96 mmol/L (98-107); Creatinine, Serum 0.88 mg/dL (0.70-1.30); EST Glomerular Filtration Rate 88 mL/min (>60); Est Glom Filt Rate - Afr Amer 107 mL/min (>60); Estimated Creatinine Clearance 64.72 ml/min; Glucose 75 mg/dL (74-106); Potassium 3.4 mmol/L (3.5-5.1); Sodium Level 134 mmol/L (136-145)
[2020-03-29] MEDS: Amiodarone 200 MG Tablet PO (09:01)
[2020-03-29] MEDS: Allopurinol 100 MG Tablet 200 MG PO (09:01)
[2020-03-29] MEDS: Aspirin 81 MG TAB.CHEW PO (09:01)
[2020-03-29] MEDS: Levothyroxine 50 MCG Tablet PO (09:01)
[2020-03-29] MEDS: guaiFENesin 10 ML UDC (200MG/10ML) PO ×3 (09:05→22:28)
--- NOTE | 2020-03-29 09:30 | PN_ITS ---
Patient Problems: Active and Suspected Problems (Last Updated 03/27/20 @ 09:[address] Liliya Pérez MD) Pneumonia (Acute) Atrial fibrillation with RVR (Acute) Acute respiratory failure with hypoxia (Acute) COVID-19 (Acute) SARS pneumonia (Acute) Subjective: Chief complaint: Follow-up after admission for acute on recently chronic hypoxic respiratory failure, bacterial pneumonia, recent Covid pneumonia with sepsis as well as A. fib with RVR. Patient seen and examined. No acute events overnight. Yesterday evening, patient's heart rate has been in the 120s postop to 140s. Received couple of extra doses of metoprolol. He has been having fevers. Today, he is feeling better, shortness of breath continue to improve slowly. Still having spikes of low-grade fever. Heart rate slowed down to around 100. - Physical Exam Vitals/I&O's: Vital Signs Temp Pulse Resp BP Pulse Ox 98.8 F 113 H 20 H 113/70 92 03/29/20 09:19 03/29/20 09:19 03/29/20 09:19 03/29/20 09:19 03/29/20 09:19 Oxygen Flow Rate (L/min) 3 Oxygen Delivery Method Nasal Cannula Weight: 257 lb 0.944 oz Body Mass Index (BMI) 37.9 Intake and Output for Last 24 Hours 03/27/20 03/28/20 03/29/20 23:59 23:59 23:59 Intake Total 705 / 705 1350 / 1790 1140 / 1140 Output Total 850 / 850 1475 / 1475 Balance -145 / -145 -125 / 315 1140 / 1140 General: Alert, Oriented x3, Cooperative, - - Minimally short of breath. HEENT: Atraumatic, PERRLA, EOMI, Normocephalic Oral: Moist Mucosa, No Gingival or Mucosal Lesions/ Ulcerations Neck: Supple, No JVD, Negative Carotid Bruits, Trachea Midline, Thyroid Normal Size and Texture Lungs: No wheeze, Diminished, Rhonchi, - - Decreased breath sounds at the bases, more on the left base, faint right basilar crackles. Cardiovascular: Normal S1, PMI Normal, Irregular Rate, Tachycardic Abdomen: Bowel Sounds Present, Soft, Non Tender, Non-Distended, No Hepato- splenomegaly, Obese Extremities: No clubbing, No cyanosis, Edema Skin: No rashes, No breakdown Lymphatic: No Cervical, Supraclavicular, or Inguinal Adenopathy Neurological: Cranial nerves II-XII grossly intact, Neuro grossly intact Psych/Mental Status: Normal Affect, Appropriate, Alert and oriented to time, place, person, mood and affect Microbiology Past 72 Hours 03/27/20 09:17 Urine, Clean Catch Urine Culture - Preliminary Culture exhibits no growth. 03/28/20 03:05 Sputum, Expectorated/Coughed Gram Stain - Final 03/27/20 10:15 Urine, Clean Catch Legionella Antigen - Final 03/27/20 10:15 Urine, Clean Catch Streptococcus pneumoniae Antigen (M - Final Laboratory Results 03/29/20 05:54: WBC 13.1 H, RBC 3.88 L, Hgb 12.8 L, Hct 39.2 L, MCV 101.0 H, MCH 33.0 H, MCHC 32.7 D, RDW Std Deviation 56.0 H, RDW Coeff of Timothy 15.1 H, Plt Count 137 L, MPV 11.1, Immature Gran % (Auto) 0.900, Neut % (Auto) 53.2, Lymph % (Auto) 41.4 H, Grimes % (Auto) 4.1, Eos % (Auto) 0.2, Baso % (Auto) 0.2, Absolute Neuts (auto) 7.0, Absolute Lymphs (auto) 5.42 H, Nucleated RBC % 0, Differential Comment SCANNED, Reactive Lymphocytes 1+ 03/29/20 05:54: Sodium 134 L, Potassium 3.4 L, Chloride 96 L, Carbon Dioxide 29.0, Anion Gap 9, BUN 21 H, Creatinine 0.88, Estim Creat Clear Calc 64.72, Est GFR (MDRD) Af Amer 107, Est GFR (MDRD) Non-Af 88, BUN/Creatinine Ratio 23.9 H, Glucose 75, Calcium 8.3 L 03/29/20 06:18: PT 31.6 H, INR 3.1 Current Medications Acetaminophen (Acetaminophen 325 Mg Tablet) 650 mg PO Q6H PRN PRN PRN Reason: Pain Score 1-10/Temp > 100.7 F Last Admin: 03/29/20 03:16 Dose: 650 mg Documented by: Al Hydroxide/Mg Hydroxide (Mag Hydrox/Al Hydrox/Simeth 30 Ml Udc) 30 ml PO Q6H PRN PRN PRN Reason: DYSPEPSIA Last Admin: 03/28/20 21:06 Dose: 30 ml Documented by: Albuterol Sulfate (Albuterol 2.5 Mg/3 Ml Vial.Neb.) 2.5 mg INHALATION Q2H PRN PRN PRN Reason: Shortness of Breath/Wheezing Albuterol/Ipratropium (Ipratropium/Albuterol Sulfate 3 Ml Ampul.Neb) 3 ml INHALATION Q4H.RT [facility] Last Admin: 03/29/20 07:02 Dose: 3 ml Documented by: Allopurinol (Allopurinol 100 Mg Tablet) 200 mg PO DAILY [facility] Last Admin: 03/29/20 09:01 Dose: 200 mg Documented by: Amiodarone HCl (Amiodarone 200 Mg Tablet) 200 mg PO DAILY [facility] Last Admin: 03/29/20 09:01 Dose: 200 mg Documented by: Aspirin (Aspirin 81 Mg Tab.Chew) 81 mg PO DAILY [facility] Last Admin: 03/29/20 09:01 Dose: 81 mg Documented by: Atorvastatin Calcium (Atorvastatin Calcium 20 Mg Tablet) 20 mg PO QHS [facility] Last Admin: 03/28/20 19:48 Dose: 20 mg Documented by: Furosemide (Furosemide 40 Mg Tablet) 40 mg PO BIDLX [facility] Last Admin: 03/29/20 09:00 Dose: Not Given Documented by: Guaifenesin (Guaifenesin 10 Ml Udc (200mg/10ml)) 10 ml PO Q6H PRN PRN PRN Reason: COUGH/CONGESTION Last Admin: 03/29/20 09:05 Dose: 10 ml Documented by: Cefepime HCl 2 gm/ Sodium (Chloride) 100 mls @ 200 mls/hr IV Q8 [facility] Last Infusion: 03/29/20 05:40 Dose: Infused Documented by: Levothyroxine Sodium (Levothyroxine 50 Mcg Tablet) 50 mcg PO DAILY [facility] Last Admin: 03/29/20 09:01 Dose: 50 mcg Documented by: Metoprolol Succinate (Metoprolol(Xl)Succ 50 Mg Tablet) 50 mg PO HS [facility] Last Admin: 03/28/20 18:23 Dose: 50 mg Documented by: Ondansetron HCl (Ondansetron 4 Mg/2 Ml Vial) 4 mg IV Q8H PRN PRN PRN Reason: NAUSEA/VOMITING Potassium Chloride (Potassium Chloride 20 Meq Tablet) 60 meq PO X1 ONE Stop: 03/29/20 10:01 Last Admin: 03/29/20 09:02 Dose: 60 meq Documented by: Senna/Docusate Sodium (Senna/Docusate Sodium 1 Tablet) 2 tablet PO BID PRN PRN PRN Reason: Constipation Sodium Chloride (0.9% Saline Lock 10 Ml Syringe) 10 - 40 ml IV UD PRN PRN Reason: SALINE FLUSH Last Admin: 03/29/20 05:07 Dose: 10 ml Documented by: Tramadol HCl (Tramadol 50 Mg Tablet) 25 mg PO TID PRN PRN Reason: PAIN 1-10/FEVER Last Admin: 03/29/20 05:14 Dose: 25 mg Documented by: Zolpidem Tartrate (Zolpidem Tartrate 5 Mg Tablet) 5 mg PO QHS PRN PRN PRN Reason: INSOMNIA Medical Necessity - Tobacco Use Smoking Status: Former smoker Assessment/Plan All Active Problems (Last Updated 03/27/20 @ 09:[address] Liliya Pérez MD) Pneumonia (Acute) Atrial fibrillation with RVR (Acute) Acute respiratory failure with hypoxia (Acute) COVID-19 (Acute) SARS pneumonia (Acute) This is an 80 years old male patient [facility] because of worsening shortness of breath and increasing oxygen requirement in context of recent discharge from the hospital after admission for COVID-19 pneumonia and acute hypoxic respiratory failure, found to have sepsis secondary to pneumonia and A. fib with RVR and he is being admitted for evaluation and treatment. #1 acute on recently chronic hypoxic respiratory failure: This is attributed to new bacterial pneumonia in addition to recent COVID-19 pneumonia. Today, patient remained on oxygen at 3 L, feeling better. He has been having spikes of low-grade fever. Pneumococcal antigen reactive negative. Urine culture showed no growth. Sputum and blood cultures are pending. Patient is on IV cefepime. Plan to continue same treatment. #2 right lower lobe pneumonia/sepsis: Probably healthcare associated. Remained on IV cefepime. He has been having spikes of fever overnight, WBC is trending down. Cultures reviewed as above. Plan to continue same treatment as above. #3 recent COVID-19 pneumonia: Completed IV remdesivir and Decadron 5 days ago. Plan as above, infectious disease on the case. #3 A. fib with RVR: Patient has been having spikes of fever, heart rate goes up to 120s. Today, fever is trending down, heart rate is down to around 100, blood pressure stable. Continue amiodarone and metoprolol for rate control. Today's INR is 3.1. Plan to resume Coumadin today. #4 hypertension: Blood pressure stable, continue metoprolol. #5 chronic lymphocytic leukemia: In remission, stable. #6 gout: Stable, continue allopurinol. #7 chronic diastolic CHF: No obvious findings consistent with acute CHF. Chest x-ray reviewed. BMP ordered. Plan to continue aspirin, statins, beta-blockers. #8 CODE STATUS: DNR CCA, no intubation. #9 DVT prophylaxis: INR is 3.1. This note was generated with wiseri dictation software. It may contain incorrect words, spelling, and punctuation that were not noted in checking the note before signing. Inpatient E&M: 56659 Subs Hosp L2
[2020-03-29] MEDS: Furosemide 40 MG/4 ML Vial IV (11:31)
[2020-03-29] MEDS: Furosemide 40 MG Tablet PO (17:06)
--- NOTE | 2020-03-29 19:17 | NURSING ---
Addendum entered by Aminata Tamayo 03/29/20 20:45: METOPROLOL, NOT ATENOLOL Addendum entered by Aminata Tamayo 03/29/20 20:40: GIVE 2200 ATENOLOL Original Note: DR WEI NOTIFIED OF HR STILL IN THE LOW 120S. NO NEW ORDERS AT THIS TIME.
[2020-03-29] MEDS: Metoprolol(XL)Succ 50 MG Tablet PO (19:20)
[2020-03-29] MEDS: Atorvastatin Calcium 20 MG Tablet PO (20:11)
--- NOTE | 2020-03-29 22:34 | NURSING ---
Increased to 8L high flow O2 at this time.
--- NOTE | 2020-03-29 22:52 | PCM.RRT.BLA ---
Rapid Response Note - Blank Nurse reported that patient with A. fib with RVR is maxed out on Cardizem and heart rate is in the 130s. Patient on amiodarone p.o. and metoprolol p.o. Creatinine is normal. Discussed case with associate director of sales on-call Dr. Cabral. Give digoxin 0.5 mg x 1 now and then for 4 hours to 6 hours ; repeat dose of 0.25 mg x 1. If rate is still not controlled consider another dose of digoxin or start IV amiodarone. Patient is anticoagulated on Coumadin. If patient becomes hemodynamically unstable consider discussing case again with associate director of sales.
[2020-03-29] MEDS: Digoxin 250 MCG/ML Ampul 500 MCG IV (23:26)
[2020-03-30] VITALS (40 sets, daily range): BP systolic 114–149; BP diastolic 51–129; PULSE 82–121; RESP 12–48; TEMP 36.6–37.9; O2SAT 84–96
[2020-03-30] MEDS: Albuterol 2.5 MG/3 ML VIAL.NEB. INHALATION (02:15)
[2020-03-30] MEDS: Digoxin 250 MCG/ML Ampul IV (04:03)
[2020-03-30] MEDS: Ipratropium/Albuterol Sulfate 3 ML AMPUL.NEB INHALATION ×5 (06:42→22:50)
[2020-03-30] MEDS: Furosemide 40 MG Tablet PO ×2 (07:51→23:56)
[2020-03-30] MEDS: Amiodarone 200 MG Tablet PO (07:51)
[2020-03-30] MEDS: Allopurinol 100 MG Tablet 200 MG PO (07:51)
[2020-03-30] MEDS: Levothyroxine 50 MCG Tablet PO (07:51)
[2020-03-30] MEDS: Aspirin 81 MG TAB.CHEW PO (07:51)
--- NOTE | 2020-03-30 08:32 | CPS ---
Bipap was removed from patient's room on 03/28, patient was placed back on Bipap on 03/29.
--- NOTE | 2020-03-30 08:35 | CPS ---
Bipap had been removed from patient's room on 03/29. Patient was 85% on 10L, patient placed back on Bipap on 03/30.
--- NOTE | 2020-03-30 09:10 | RAD_ITS ---
STUDY: X-RAY CHEST REASON FOR EXAM: Male, 80 years old. SHORTNESS OF BREATH, COVID TECHNIQUE: Single AP portable view of the chest. COMPARISON: Comparison is made with prior study dated 03/27/2020. FINDINGS: EKG electrode are seen. Stable elevation of the left hemidiaphragm. Since prior study, there has been progressive infiltrate at the left lung base as well as in the right upper lobe and right lower lobes. Follow-up is recommended. Normal size heart. Normal mediastinum and erin. Normal visualized pulmonary arteries. There is atherosclerotic calcification of the aortic arch with tortuosity. Normal visualized thoracic spine. Normal visualized ribs, clavicles, and shoulders. There is no demonstrated abnormality of the visualized soft tissue structures of the upper abdomen. RAD/Chest 1 View (Portable) IMPRESSION: Progressive bilateral infiltrates. This is worse in the right hemithorax. Electronically Signed: Jagjit Hankins, at 10:27 EST , Service support ,
--- NOTE | 2020-03-30 10:57 | PN_ITS ---
Patient Problems: Active and Suspected Problems (Last Updated 03/27/20 @ 09:[address] Liliya Pérez MD) Pneumonia (Acute) Atrial fibrillation with RVR (Acute) Acute respiratory failure with hypoxia (Acute) COVID-19 (Acute) SARS pneumonia (Acute) Subjective: Chief complaint: Follow-up after admission for acute on recently chronic hypoxic respiratory failure, bacterial pneumonia, recent Covid pneumonia with sepsis as well as A. fib with RVR. Patient seen and examined. Overnight, patient remained on A. fib with RVR and maxed out on Cardizem drip. He was given 1 dose of digoxin. This morning, patient was more short of breath and requiring up to 10 L of oxygen. Now, he is on BiPAP. He is feeling better. Heart rate is down to 80s. He is afebrile, heart rate has been in the 80s, blood pressure stable, pulse ox is 95% on BiPAP. - Physical Exam Vitals/I&O's: Vital Signs Temp Pulse Resp BP Pulse Ox 98.4 F 86 24 H 132/77 H 94 03/30/20 06:13 03/30/20 10:40 03/30/20 10:40 03/30/20 08:00 03/30/20 10:40 Oxygen Flow Rate (L/min) 10 Oxygen Delivery Method Nasal Cannula Weight: 257 lb 0.944 oz Body Mass Index (BMI) 37.9 Intake and Output for Last 24 Hours 03/28/20 03/29/20 03/30/20 23:59 23:59 23:59 Intake Total 1350 / 1790 2165.00 / 2169.75 255.00 / 255.00 Output Total 1475 / 1475 1250 / 1250 100 / 100 Balance -125 / 315 915.00 / 919.75 155.00 / 155.00 General: Alert, Oriented x3, Cooperative, - - Moderately short of breath. HEENT: Atraumatic, PERRLA, EOMI, Normocephalic Oral: Moist Mucosa, No Gingival or Mucosal Lesions/ Ulcerations Neck: Supple, No JVD, Negative Carotid Bruits, Trachea Midline, Thyroid Normal Size and Texture Lungs: No rhonchi, No wheeze, Diminished, Rales, Short of Breath, - - Decreased with sounds bilateral more at the bases with crackles on the right base. Cardiovascular: Normal S1, Normal S2, PMI Normal, Irregular Rate Abdomen: Bowel Sounds Present, Soft, Non Tender, Non-Distended, No Hepato- splenomegaly, Obese Extremities: No clubbing, No cyanosis, Edema Skin: No rashes, No breakdown Lymphatic: No Cervical, Supraclavicular, or Inguinal Adenopathy Neurological: Cranial nerves II-XII grossly intact, Neuro grossly intact Psych/Mental Status: Normal Affect, Appropriate, Alert and oriented to time, place, person, mood and affect Microbiology Past 72 Hours 03/28/20 03:05 Sputum, Expectorated/Coughed Gram Stain - Final 03/28/20 03:05 Sputum, Expectorated/Coughed Respiratory Culture - Final Mixed normal respiratory fabien. No Streptococcus pneumoniae, beta-hemolytic Streptococcus or Staphylococcus aureus isolated. 03/27/20 09:17 Urine, Clean Catch Urine Culture - Final Culture exhibits no growth. 03/27/20 07:17 Blood Culture (Wb) - Right Hand Blood Culture - Preliminary No growth in 48 hours. 03/27/20 06:49 Blood Culture (Wb) - Anticubital Left Blood Culture - Preliminary No growth in 48 hours. 03/27/20 10:15 Urine, Clean Catch Legionella Antigen - Final 03/27/20 10:15 Urine, Clean Catch Streptococcus pneumoniae Antigen (M - Final Current Medications Acetaminophen (Acetaminophen 325 Mg Tablet) 650 mg PO Q6H PRN PRN PRN Reason: Pain Score 1-10/Temp > 100.7 F Last Admin: 03/29/20 13:19 Dose: 650 mg Documented by: Al Hydroxide/Mg Hydroxide (Mag Hydrox/Al Hydrox/Simeth 30 Ml Udc) 30 ml PO Q6H PRN PRN PRN Reason: DYSPEPSIA Last Admin: 03/28/20 21:06 Dose: 30 ml Documented by: Albuterol Sulfate (Albuterol 2.5 Mg/3 Ml Vial.Neb.) 2.5 mg INHALATION Q2H PRN PRN PRN Reason: Shortness of Breath/Wheezing Last Admin: 03/30/20 02:15 Dose: 2.5 mg Documented by: Albuterol/Ipratropium (Ipratropium/Albuterol Sulfate 3 Ml Ampul.Neb) 3 ml INHALATION Q4H.RT [facility] Last Admin: 03/30/20 10:40 Dose: 3 ml Documented by: Allopurinol (Allopurinol 100 Mg Tablet) 200 mg PO DAILY [facility]PLAC[facility] BY [facility] Last Admin: 03/30/20 07:51 Dose: 200 mg Documented by: Amiodarone HCl (Amiodarone 200 Mg Tablet) 200 mg PO DAILY [facility] Last Admin: 03/30/20 07:51 Dose: 200 mg Documented by: Aspirin (Aspirin 81 Mg Tab.Chew) 81 mg PO DAILY [facility]PL[facility] Last Admin: 03/30/20 07:51 Dose: 81 mg Documented by: Atorvastatin Calcium (Atorvastatin Calcium 20 Mg Tablet) 20 mg PO QHS REPLACED BY [facility] Last Admin: 03/29/20 20:11 Dose: 20 mg Documented by: Furosemide (Furosemide 40 Mg Tablet) 40 mg PO BIDLX REPLACED BY [facility] Last Admin: 03/30/20 07:51 Dose: 40 mg Documented by: Guaifenesin (Guaifenesin 10 Ml Udc (200mg/10ml)) 10 ml PO Q6H PRN PRN PRN Reason: COUGH/CONGESTION Last Admin: 03/29/20 22:28 Dose: 10 ml Documented by: Cefepime HCl 2 gm/ Sodium (Chloride) 100 mls @ 200 mls/hr IV Q8 [facility]PLACED [facility] Last Infusion: 03/30/20 06:47 Dose: Infused Documented by: Diltiazem HCl 125 mg/ Dextrose 125 mls @ 5 mls/hr IV .Q25H REPLACED BY [facility]; Protocol Last Admin: 03/30/20 08:35 Dose: 15 mg/hr, 15 mls/hr Documented by: Levothyroxine Sodium (Levothyroxine 50 Mcg Tablet) 50 mcg PO DAILY [facility]PLACED BY [facility] Last Admin: 03/30/20 07:51 Dose: 50 mcg Documented by: Metoprolol Succinate (Metoprolol(Xl)Succ 50 Mg Tablet) 50 mg PO HS REPLACED BY [facility] Last Admin: 03/29/20 19:20 Dose: 50 mg Documented by: Ondansetron HCl (Ondansetron 4 Mg/2 Ml Vial) 4 mg IV Q8H PRN PRN PRN Reason: NAUSEA/VOMITING Senna/Docusate Sodium (Senna/Docusate Sodium 1 Tablet) 2 tablet PO BID PRN PRN PRN Reason: Constipation Sodium Chloride (0.9% Saline Lock 10 Ml Syringe) 10 - 40 ml IV UD PRN PRN Reason: SALINE FLUSH Last Admin: 03/29/20 23:26 Dose: 10 ml Documented by: Tramadol HCl (Tramadol 50 Mg Tablet) 25 mg PO TID PRN PRN Reason: PAIN 1-10/FEVER Last Admin: 03/29/20 17:06 Dose: 25 mg Documented by: Warfarin Sodium (Warfarin 7.5 Mg Tablet) 7.5 mg PO DAILY@1700 [facility] Last Admin: 03/29/20 17:07 Dose: 7.5 mg Documented by: Zolpidem Tartrate (Zolpidem Tartrate 5 Mg Tablet) 5 mg PO QHS PRN PRN PRN Reason: INSOMNIA Medical Necessity - Tobacco Use Smoking Status: Former smoker Assessment/Plan All Active Problems (Last Updated 03/27/20 @ 09:[address] Liliya Pérez MD) Pneumonia (Acute) Atrial fibrillation with RVR (Acute) Acute respiratory failure with hypoxia (Acute) COVID-19 (Acute) SARS pneumonia (Acute) This is an 80 years old male patient [facility] because of worsening shortness of breath and increasing oxygen requirement in context of recent discharge from the hospital after admission for COVID-19 pneumonia and acute hypoxic respiratory failure, found to have sepsis secondary to pneumonia and A. fib with RVR. #1 acute on recently chronic hypoxic respiratory failure: This is attributed to new bacterial pneumonia in addition to recent COVID-19 pneumonia. Overnight, patient became more short of breath, currently he is on BiPAP. Chest x-ray reviewed, revealing increasing bilateral infiltrate more on the right lung. He has been having spikes of low-grade fever, WBC is trending down. Pneumococcal antigen reactive negative. Urine culture showed no growth. Blood culture showed no growth in 48 hours. Sputum culture revealed mixed normal slightly fabien. Patient is on IV cefepime. We may need to broaden antibiotic coverage. Plan to continue same treatment, repeat CBC and BMP tomorrow morning.. #2 right lower lobe pneumonia/sepsis: Probably healthcare associated. Remained on IV cefepime. He has been having spikes of fever overnight, WBC is trending down. Cultures reviewed as above. Chest x-ray revealed worsening bilateral infiltrate more on the right side. Infectious disease on the case. Plan as above. #3 recent COVID-19 pneumonia: Completed IV remdesivir and Decadron 5 days ago. Plan as above, infectious disease on the case. #3 A. fib with RVR: Overnight, patient remained in A. fib with RVR, received a dose of digoxin, remains on IV Cardizem drip. Currently, heart rate has been in the 80s. He is on amiodarone p.o. as well. Today's INR is 3.1. Started back on Coumadin. Will check INR tomorrow morning. #4 hypertension: Blood pressure stable, continue metoprolol. #5 chronic lymphocytic leukemia: In remission, stable. #6 gout: Stable, continue allopurinol. #7 chronic diastolic CHF: Patient has been on IV Lasix. BMP was slightly elevated. Acute on chronic diastolic CHF cannot be ruled out. We will continue IV diuresis for now, continue aspirin, statins, beta-blockers. #8 CODE STATUS: DNR CCA, no intubation. #9 DVT prophylaxis: INR is 3.1. This note was generated with Jasper dictation software. It may contain incorrect words, spelling, and punctuation that were not noted in checking the note before signing. Inpatient E&M: 78636 Subs Hosp L2
[2020-03-30] MEDS: Furosemide 100 MG/10 ML Vial 60 MG IV (11:48)
--- NOTE | 2020-03-30 15:36 | PCM.PN.ID ---
Patient Problems: Active and Suspected Problems (Last Updated 03/27/20 @ 09:[address] Liliya Pérez MD) Pneumonia (Acute) Atrial fibrillation with RVR (Acute) Acute respiratory failure with hypoxia (Acute) COVID-19 (Acute) SARS pneumonia (Acute) Subjective: Feeling better on bipap, no fever - Physical Exam Vitals/I&O's: Vital Signs Temp Pulse Resp BP Pulse Ox 98.3 F 109 H 48 H 134/52 H 91 03/30/20 12:00 03/30/20 15:00 03/30/20 14:25 03/30/20 14:00 03/30/20 14:00 Oxygen Flow Rate (L/min) 10 Oxygen Delivery Method Bi-pap Weight: 116.6 kg Body Mass Index (BMI) 37.9 Intake and Output for Last 24 Hours 03/28/20 03/29/20 03/30/20 23:59 23:59 23:59 Intake Total 1350 / 1790 2165.00 / 2169.75 506.25 / 506.25 Output Total 1475 / 1475 1250 / 1250 800 / 800 Balance -125 / 315 915.00 / 919.75 -293.75 / -293.75 General: Alert, Cooperative, No apparent distress Lungs: Diminished Cardiovascular: Regular rate, Regular Rhythm Abdomen: Soft, Non Tender, Non-Distended Skin: No rashes Microbiology Past 72 Hours 03/28/20 03:05 Sputum, Expectorated/Coughed Gram Stain - Final 03/28/20 03:05 Sputum, Expectorated/Coughed Respiratory Culture - Final Mixed normal respiratory fabien. No Streptococcus pneumoniae, beta-hemolytic Streptococcus or Staphylococcus aureus isolated. 03/27/20 09:17 Urine, Clean Catch Urine Culture - Final Culture exhibits no growth. 03/27/20 07:17 Blood Culture (Wb) - Right Hand Blood Culture - Preliminary No growth in 48 hours. 03/27/20 06:49 Blood Culture (Wb) - Anticubital Left Blood Culture - Preliminary No growth in 48 hours. 03/27/20 10:15 Urine, Clean Catch Legionella Antigen - Final 03/27/20 10:15 Urine, Clean Catch Streptococcus pneumoniae Antigen (M - Final Current Medications Acetaminophen (Acetaminophen 325 Mg Tablet) 650 mg PO Q6H PRN PRN PRN Reason: Pain Score 1-10/Temp > 100.7 F Last Admin: 03/29/20 13:19 Dose: 650 mg Documented by: Al Hydroxide/Mg Hydroxide (Mag Hydrox/Al Hydrox/Simeth 30 Ml Udc) 30 ml PO Q6H PRN PRN PRN Reason: DYSPEPSIA Last Admin: 03/28/20 21:06 Dose: 30 ml Documented by: Albuterol Sulfate (Albuterol 2.5 Mg/3 Ml Vial.Neb.) 2.5 mg INHALATION Q2H PRN PRN PRN Reason: Shortness of Breath/Wheezing Last Admin: 03/30/20 02:15 Dose: 2.5 mg Documented by: Albuterol/Ipratropium (Ipratropium/Albuterol Sulfate 3 Ml Ampul.Neb) 3 ml INHALATION Q4H.RT [facility] Last Admin: 03/30/20 14:22 Dose: 3 ml Documented by: Allopurinol (Allopurinol 100 Mg Tablet) 200 mg PO DAILY [facility] Last Admin: 03/30/20 07:51 Dose: 200 mg Documented by: Amiodarone HCl (Amiodarone 200 Mg Tablet) 200 mg PO DAILY [facility] Last Admin: 03/30/20 07:51 Dose: 200 mg Documented by: Aspirin (Aspirin 81 Mg Tab.Chew) 81 mg PO DAILY [facility] Last Admin: 03/30/20 07:51 Dose: 81 mg Documented by: Atorvastatin Calcium (Atorvastatin Calcium 20 Mg Tablet) 20 mg PO QHS [facility] Last Admin: 03/29/20 20:11 Dose: 20 mg Documented by: Furosemide (Furosemide 40 Mg Tablet) 40 mg PO BIDLX [facility] Last Admin: 03/30/20 07:51 Dose: 40 mg Documented by: Guaifenesin (Guaifenesin 10 Ml Udc (200mg/10ml)) 10 ml PO Q6H PRN PRN PRN Reason: COUGH/CONGESTION Last Admin: 03/29/20 22:28 Dose: 10 ml Documented by: Cefepime HCl 2 gm/ Sodium (Chloride) 100 mls @ 200 mls/hr IV Q8 [facility] Last Infusion: 03/30/20 14:47 Dose: Infused Documented by: Diltiazem HCl 125 mg/ Dextrose 125 mls @ 5 mls/hr IV .Q25H [facility]; Protocol Last Titration: 03/30/20 12:00 Dose: 15 mg/hr, 15 mls/hr Documented by: Levothyroxine Sodium (Levothyroxine 50 Mcg Tablet) 50 mcg PO DAILY [facility] Last Admin: 03/30/20 07:51 Dose: 50 mcg Documented by: Metoprolol Succinate (Metoprolol(Xl)Succ 50 Mg Tablet) 50 mg PO HS [facility] Last Admin: 03/29/20 19:20 Dose: 50 mg Documented by: Ondansetron HCl (Ondansetron 4 Mg/2 Ml Vial) 4 mg IV Q8H PRN PRN PRN Reason: NAUSEA/VOMITING Senna/Docusate Sodium (Senna/Docusate Sodium 1 Tablet) 2 tablet PO BID PRN PRN PRN Reason: Constipation Sodium Chloride (0.9% Saline Lock 10 Ml Syringe) 10 - 40 ml IV UD PRN PRN Reason: SALINE FLUSH Last Admin: 03/29/20 23:26 Dose: 10 ml Documented by: Tramadol HCl (Tramadol 50 Mg Tablet) 25 mg PO TID PRN PRN Reason: PAIN 1-10/FEVER Last Admin: 03/29/20 17:06 Dose: 25 mg Documented by: Warfarin Sodium (Warfarin 7.5 Mg Tablet) 7.5 mg PO DAILY@1700 [facility] Last Admin: 03/29/20 17:07 Dose: 7.5 mg Documented by: Zolpidem Tartrate (Zolpidem Tartrate 5 Mg Tablet) 5 mg PO QHS PRN PRN PRN Reason: INSOMNIA Medical Necessity - Tobacco Use Smoking Status: Former smoker Route of nutrition/ use of supplements: [] Nutritional Intake: [] IV Site: [] Hodges Catheter: [] - Assessment/Plan Antibiotics: [] Assessment/Plan: [] Active and Suspected Problems (Last Updated 03/27/20 @ 09:[address] Liliya Pérez MD) Atrial fibrillation with RVR (Acute) Acute respiratory failure with hypoxia (Acute) COVID-19 (Acute) SARS pneumonia (Acute) sepsis due to pneumonia with recent covid - Cont with cefepime. In iso. Covid sx started 03/11/20, covid (+) 03/20. Feeling better, fever improved, sputum with normal fabien. Will stop cefepime tomorrow. He will be 3 weeks into his symptoms on 04/01/20, plan on stopping iso if O2 is improving. Will follow
[2020-03-30] MEDS: TITRATION PARAMETER CHANGE 1 EACH IV (16:28)
[2020-03-30] MEDS: 0.9% Saline Lock 10 ML Syringe IV (17:32)
[2020-03-30] MEDS: guaiFENesin 10 ML UDC (200MG/10ML) PO (17:39)
[2020-03-30] MEDS: Atorvastatin Calcium 20 MG Tablet PO (23:57)
[2020-03-30] MEDS: Metoprolol(XL)Succ 50 MG Tablet PO (23:58)
[2020-03-31] VITALS (35 sets, daily range): BP systolic 94–209; BP diastolic 35–173; PULSE 89–120; RESP 12–33; TEMP 35.8–38.6; O2SAT 84–97
[2020-03-31] MEDS: Acetaminophen 325 MG Tablet 650 MG PO ×2 (00:33→20:27)
[2020-03-31] MEDS: Ipratropium/Albuterol Sulfate 3 ML AMPUL.NEB INHALATION ×4 (04:05→19:05)
[2020-03-31 07:12] LABS: Prothrombin Time (Protime)PT. 56.4 SECONDS (11.7-14.9)
[2020-03-31 07:17] LABS: International Normalized Ratio 6.4
[2020-03-31 07:35] LABS: Absolute Lymphocyte Count 6.26 X10^3/uL (0.83-4.51); Absolute Neutrophil Count 11.8 X10^3/uL (2.0-7.7); Basophil# 0.03 X10^3/uL; Basophil% 0.2 % (0-1); Eosinophil# 0.01 X10^3/uL; Eosinophils% 0.1 % (0-5); Hemoglobin 12.5 g/dL (13.0-16.5); Lymphocyte # 6.26 X10^3/ul (4.0); Lymphocyte % 33.1 % (19-41); Mean Corp Hgb Conc 31.3 g/dL (32-36); Mean Corpuscular Hgb 32.1 pg (27.0-32.0); Mean Corpuscular Volume 102.6 fL (80-94); Mean Platelet Vol. 10.8 fl (6.2-12.0); Monocyte# 0.73 X10^3/uL; Monocyte% 3.9 % (0-10); NRBC Flagged by Analyzer 0 % (0-5); Neutrophil # 11.76 X10^3/uL (2.7-7.7); Neutrophil % 62.1 % (47-70); POSITIVE DIFFERENTIAL YES; POSITIVE MORPHOLOGY YES; Platelet Count 100 K/mm3 (150-450); RBC Distribution Width CV 15.1 % (11.6-14.6); RBC Distribution Width SD 56.8 fl (35.1-43.9); White Blood Count 18.9 K/mm3 (4.4-11.0)
[2020-03-31 07:41] LABS: Differential Indicated SCAN CRITERIA MET
[2020-03-31 07:44] LABS: Anion Gap 5 (5-15); BUN 23 mg/dL (7-18); BUN/Creat Ratio 19.8 RATIO (10-20); Calcium,Total 8.8 mg/dL (8.5-10.1); Chloride 97 mmol/L (98-107); Creatinine, Serum 1.16 mg/dL (0.70-1.30); EST Glomerular Filtration Rate 64 mL/min (>60); Est Glom Filt Rate - Afr Amer 78 mL/min (>60); Glucose 91 mg/dL (74-106); Potassium 3.5 mmol/L (3.5-5.1); Sodium Level 134 mmol/L (136-145)
[2020-03-31] MEDS: Furosemide 40 MG Tablet PO ×2 (08:52→17:46)
[2020-03-31] MEDS: Aspirin 81 MG TAB.CHEW PO (08:52)
[2020-03-31] MEDS: Levothyroxine 50 MCG Tablet PO (08:52)
[2020-03-31] MEDS: Allopurinol 100 MG Tablet 200 MG PO (08:52)
[2020-03-31] MEDS: Amiodarone 200 MG Tablet PO (08:53)
[2020-03-31] MEDS: Phytonadione (Vit K1) 5 MG TABLET PO (09:05)
--- NOTE | 2020-03-31 09:07 | PN_ITS ---
Patient Problems: Active and Suspected Problems (Last Updated 03/27/20 @ 09:[address] Liliya Pérez MD) Pneumonia (Acute) Atrial fibrillation with RVR (Acute) Acute respiratory failure with hypoxia (Acute) COVID-19 (Acute) SARS pneumonia (Acute) Subjective: Chief complaint: Follow-up after admission for acute on recently chronic hypoxic respiratory failure, bacterial pneumonia, recent Covid pneumonia with sepsis as well as A. fib with RVR. Patient seen and examined. No acute events overnight. He tolerated BiPAP overnight. He is feeling better although he still requiring high flow oxygen by nasal cannula this morning. This morning, he was afebrile, heart rate has been around 100, blood pressure stable. - Physical Exam Vitals/I&O's: Vital Signs Temp Pulse Resp BP Pulse Ox 99.4 F H 96 20 H 151/79 H 93 03/31/20 08:12 03/31/20 08:12 03/31/20 08:12 03/31/20 08:12 03/31/20 08:12 Oxygen Flow Rate (L/min) 10 Oxygen Delivery Method Bi-pap Weight: 257 lb 0.944 oz Body Mass Index (BMI) 37.9 Intake and Output for Last 24 Hours 03/29/20 03/30/20 03/31/20 23:59 23:59 23:59 Intake Total 2165.00 / 2169.75 851.17 / 851.17 200 / 200 Output Total 1250 / 1250 975 / 1255 730 / 730 Balance 915.00 / 919.75 -123.83 / -403.83 -530 / -530 General: Alert, Oriented x3, Cooperative, - - Moderately short of breath. HEENT: Atraumatic, PERRLA, EOMI, Normocephalic Oral: Moist Mucosa, No Gingival or Mucosal Lesions/ Ulcerations Neck: Supple, No JVD, Negative Carotid Bruits, Trachea Midline, Thyroid Normal Size and Texture Lungs: No wheeze, Diminished, Rales, Short of Breath, - - Decreased breath sounds bilateral, more at the bases, faint crackles at the right base. Cardiovascular: Normal S1, Normal S2, PMI Normal, Irregular Rate, Tachycardic Abdomen: Bowel Sounds Present, Soft, Non Tender, Non-Distended, No Hepato- splenomegaly, Obese Extremities: No clubbing, No cyanosis, Edema Skin: No rashes, No breakdown Lymphatic: No Cervical, Supraclavicular, or Inguinal Adenopathy Neurological: Cranial nerves II-XII grossly intact, Neuro grossly intact Psych/Mental Status: Normal Affect, Appropriate, Alert and oriented to time, place, person, mood and affect Microbiology Past 72 Hours 03/28/20 03:05 Sputum, Expectorated/Coughed Gram Stain - Final 03/28/20 03:05 Sputum, Expectorated/Coughed Respiratory Culture - Final Mixed normal respiratory fabien. No Streptococcus pneumoniae, beta-hemolytic Streptococcus or Staphylococcus aureus isolated. 03/27/20 09:17 Urine, Clean Catch Urine Culture - Final Culture exhibits no growth. 03/27/20 07:17 Blood Culture (Wb) - Right Hand Blood Culture - Preliminary No growth in 48 hours. 03/27/20 06:49 Blood Culture (Wb) - Anticubital Left Blood Culture - Preliminary No growth in 48 hours. Laboratory Results 03/31/20 06:40: WBC 18.9 H, RBC 3.90 L, Hgb 12.5 L, Hct 40.0, MCV 102.6 H, MCH 32.1 H, MCHC 31.3 L, RDW Std Deviation 56.8 H, RDW Coeff of Timothy 15.1 H, Plt Count 100 L, MPV 10.8, Immature Gran % (Auto) 0.600, Neut % (Auto) 62.1, Lymph % (Auto) 33.1, Sawyer % (Auto) 3.9, Eos % (Auto) 0.1, Baso % (Auto) 0.2, Absolute Neuts (auto) 11.8 H, Absolute Lymphs (auto) 6.26 H, Nucleated RBC % 0 03/31/20 06:40: PT 56.4 H, INR 6.4 H* 03/31/20 06:40: Sodium 134 L, Potassium 3.5, Chloride 97 L, Carbon Dioxide 32.0, Anion Gap 5, BUN 23 H, Creatinine 1.16, Estim Creat Clear Calc 49.10, Est GFR (MDRD) Af Amer 78, Est GFR (MDRD) Non-Af 64, BUN/Creatinine Ratio 19.8, Glucose 91, Calcium 8.8 Current Medications Acetaminophen (Acetaminophen 325 Mg Tablet) 650 mg PO Q6H PRN PRN PRN Reason: Pain Score 1-10/Temp > 100.7 F Last Admin: 03/31/20 00:33 Dose: 650 mg Documented by: Al Hydroxide/Mg Hydroxide (Mag Hydrox/Al Hydrox/Simeth 30 Ml Udc) 30 ml PO Q6H PRN PRN PRN Reason: DYSPEPSIA Last Admin: 03/28/20 21:06 Dose: 30 ml Documented by: Albuterol Sulfate (Albuterol 2.5 Mg/3 Ml Vial.Neb.) 2.5 mg INHALATION Q2H PRN PRN PRN Reason: Shortness of Breath/Wheezing Last Admin: 03/30/20 02:15 Dose: 2.5 mg Documented by: Albuterol/Ipratropium (Ipratropium/Albuterol Sulfate 3 Ml Ampul.Neb) 3 ml INHALATION Q4H.RT [facility] Last Admin: 03/31/20 07:17 Dose: 3 ml Documented by: Allopurinol (Allopurinol 100 Mg Tablet) 200 mg PO DAILY [facility] Last Admin: 03/31/20 08:52 Dose: 200 mg Documented by: Amiodarone HCl (Amiodarone 200 Mg Tablet) 200 mg PO DAILY [facility] Last Admin: 03/31/20 08:53 Dose: 200 mg Documented by: Aspirin (Aspirin 81 Mg Tab.Chew) 81 mg PO DAILY [facility] Last Admin: 03/31/20 08:52 Dose: 81 mg Documented by: Atorvastatin Calcium (Atorvastatin Calcium 20 Mg Tablet) 20 mg PO QHS [facility] Last Admin: 03/30/20 23:57 Dose: 20 mg Documented by: Furosemide (Furosemide 40 Mg Tablet) 40 mg PO BIDLX [facility] Last Admin: 03/31/20 08:52 Dose: 40 mg Documented by: Guaifenesin (Guaifenesin 10 Ml Udc (200mg/10ml)) 10 ml PO Q6H PRN PRN PRN Reason: COUGH/CONGESTION Last Admin: 03/30/20 17:39 Dose: 10 ml Documented by: Cefepime HCl 2 gm/ Sodium (Chloride) 100 mls @ 200 mls/hr IV Q8 [facility] Last Infusion: 03/31/20 06:14 Dose: Infused Documented by: Diltiazem HCl 125 mg/ Dextrose 125 mls @ 5 mls/hr IV .Q25H [facility]; Protocol Last Titration: 03/30/20 18:30 Dose: 0 mg/hr, 0 mls/hr Documented by: Levothyroxine Sodium (Levothyroxine 50 Mcg Tablet) 50 mcg PO DAILY [facility] Last Admin: 03/31/20 08:52 Dose: 50 mcg Documented by: Metoprolol Succinate (Metoprolol(Xl)Succ 50 Mg Tablet) 50 mg PO HS [facility] Last Admin: 03/30/20 23:58 Dose: 50 mg Documented by: Ondansetron HCl (Ondansetron 4 Mg/2 Ml Vial) 4 mg IV Q8H PRN PRN PRN Reason: NAUSEA/VOMITING Potassium Chloride (Potassium Chloride 20 Meq Tablet) [facility] Stop: 04/03/20 08:01 Senna/Docusate Sodium (Senna/Docusate Sodium 1 Tablet) 2 tablet PO BID PRN PRN PRN Reason: Constipation Sodium Chloride (0.9% Saline Lock 10 Ml Syringe) 10 - 40 ml IV UD PRN PRN Reason: SALINE FLUSH Last Admin: 03/30/20 17:32 Dose: 10 ml Documented by: Tramadol HCl (Tramadol 50 Mg Tablet) 25 mg PO TID PRN PRN Reason: PAIN 1-10/FEVER Last Admin: 03/29/20 17:06 Dose: 25 mg Documented by: Zolpidem Tartrate (Zolpidem Tartrate 5 Mg Tablet) 5 mg PO QHS PRN PRN PRN Reason: INSOMNIA Medical Necessity - Tobacco Use Smoking Status: Former smoker Assessment/Plan All Active Problems (Last Updated 03/27/20 @ 09:[address] Liliya Pérez MD) Pneumonia (Acute) Atrial fibrillation with RVR (Acute) Acute respiratory failure with hypoxia (Acute) COVID-19 (Acute) SARS pneumonia (Acute) This is an 80 years old male patient presented to the emergency room from the senior care because of worsening shortness of breath and increasing oxygen requirement in context of recent discharge from the hospital after admission for COVID-19 pneumonia and acute hypoxic respiratory failure, found to have sepsis secondary to pneumonia and A. fib with RVR. #1 acute on recently chronic hypoxic respiratory failure: This is attributed to new bacterial pneumonia in addition to recent COVID-19 pneumonia. Patient tolerated BiPAP overnight, on high flow oxygen by nasal cannula this morning. He is feeling better. No fever this morning, heart rate is better, blood pressure stable. Pneumococcal antigen reactive negative. Urine culture showed no growth. Blood culture showed no growth in 48 hours. Sputum culture revealed mixed normal slightly fabien. Patient is on IV cefepime. Infectious disease on the case. Plan to continue same treatment, repeat CBC tomorrow morning. #2 right lower lobe pneumonia/sepsis: Probably healthcare associated. Remained on IV cefepime. Today, he has no more fever, WBC is trending up. Cultures reviewed as above. Repeat chest x-ray from yesterday revealed worsening bilateral infiltrate more on the right side. Infectious disease on the case. Plan as above. #3 recent COVID-19 pneumonia: Completed IV remdesivir and Decadron 5 days ago. Plan as above, infectious disease on the case. #3 A. fib with RVR: Today, heart rate has been around 100, better, remains on IV Cardizem drip. Yesterday, received 1 dose of digoxin. He is on amiodarone p.o. as well. He was started back on Coumadin yesterday, INR today is 6.4. Plan: Vitamin K 5 pickup p.o. x1, hold Coumadin, repeat INR tomorrow morning. #4 hypertension: Blood pressure stable, continue metoprolol. #5 chronic lymphocytic leukemia: In remission, stable. #6 gout: Stable, continue allopurinol. #7 Chronic diastolic CHF: He is on p.o. Lasix, continue aspirin, statins, beta- blockers. #8 CODE STATUS: DNR CCA, no intubation. #9 DVT prophylaxis: INR is 6.4. This note was generated with [employer]oople[employer] software. It may contain incorrect words, spelling, and punctuation that were not noted in checking the note before signing. Inpatient E&M: 55338 Subs Hosp L2
[2020-03-31 09:38] LABS: Differential Comment SCANNED; Reactive Lymphocyte 1+
--- NOTE | 2020-03-31 11:34 | PCM.RX.CS ---
Consult Pharmacy has been consulted to manage selected antiobiotic: Vancomycin Type of Consult: New start Prior Doses of Antibiotics Received/Current Regimen: Medications Vancomycin HCl 2,000 mg/ (Sodium Chloride) 540 mls @ 250 mls/hr IV X1 ONE Stop: 03/31/20 13:39 Last Admin: 03/31/20 11:29 Dose: 250 mls/hr Documented by: Labs: Sodium 134 mmol/L (136-145) L 03/31/20 06:40 Potassium 3.5 mmol/L (3.5-5.1) 03/31/20 06:40 Chloride 97 mmol/L (98-107) L 03/31/20 06:40 Carbon Dioxide 32.0 mmol/L (21.0-32.0) 03/31/20 06:40 Anion Gap 5 (5-15) 03/31/20 06:40 BUN 23 mg/dL (7-18) H 03/31/20 06:40 Creatinine 1.16 mg/dL (0.70-1.30) 03/31/20 06:40 Est GFR (MDRD) Af Amer 78 mL/min (>60) 03/31/20 06:40 Est GFR (MDRD) Non-Af 64 mL/min (>60) 03/31/20 06:40 BUN/Creatinine Ratio 19.8 RATIO (10-20) 03/31/20 06:40 Glucose 91 mg/dL (74-106) 03/31/20 06:40 Microbiology: Microbiology 03/28/20 03:05 Sputum, Expectorated/Coughed Gram Stain - Final 03/28/20 03:05 Sputum, Expectorated/Coughed Respiratory Culture - Final Mixed normal respiratory fabien. No Streptococcus pneumoniae, beta-hemolytic Streptococcus or Staphylococcus aureus isolated. 03/27/20 09:17 Urine, Clean Catch Urine Culture - Final Culture exhibits no growth. 03/27/20 07:17 Blood Culture (Wb) - Right Hand Blood Culture - Preliminary No growth in 48 hours. 03/27/20 06:49 Blood Culture (Wb) - Anticubital Left Blood Culture - Preliminary No growth in 48 hours. 03/27/20 10:15 Urine, Clean Catch Legionella Antigen - Final 03/27/20 10:15 Urine, Clean Catch Streptococcus pneumoniae Antigen (M - Final Weight used for dosin kg Estimated Creatinine Clearance: 49 Goal Trough: 15-20 mcg/mL Pharmacy Plan for Drug Dosing: Initial dose 2000mg IV x1, 1000mg IV q12h to follow with trough prior to 4th dose per policy. Pharmacy Service will continue to monitor and adjust dosing as required. Follow-Up Labs: Trough Vancomycin - 04/02 @ 0030
--- NOTE | 2020-03-31 14:36 | CASEMGMT ---
Pt may need chcf placement, is on Bipapp. SW did try to call room but understandably pt would not be able to speak to SW on the phone. SW will follow up on Thursday regarding chcf placement, pt has [facility]. GALINA Schultz
--- NOTE | 2020-03-31 15:05 | NUR.TO.PHY ---
RN called to bedside. Pt nose bleeding extensively. Bipap mask full of blood. Pt placed on non rebreather and pressure held on nose for 15 mins. Pt nose stopped bleeding but blood continued to run out of pt mouth. Pt states he can not taste or feel the blood in his mouth/throat. MD notified. Orders pending.
--- NOTE | 2020-03-31 19:06 | CPS ---
PT ON NRB DUE TO BLOODY NOSE. NO BLEEDING AT THIS TIME.
[2020-03-31] MEDS: guaiFENesin 10 ML UDC (200MG/10ML) PO (19:59)
[2020-03-31] MEDS: Zolpidem Tartrate 5 MG Tablet PO (20:00)
[2020-03-31] MEDS: traMADol 50 MG Tablet 25 MG PO (20:00)
[2020-03-31] MEDS: Atorvastatin Calcium 20 MG Tablet PO (20:01)
[2020-03-31] MEDS: Metoprolol(XL)Succ 50 MG Tablet PO (20:01)
[2020-04-01] VITALS (28 sets, daily range): BP systolic 93–155; BP diastolic 64–123; PULSE 71–125; RESP 12–39; TEMP 36.2–37.1; O2SAT 65–97
[2020-04-01] MEDS: Vancomycin IV 1,000 MG/200 ML BAG 200 MG IV ×2 (01:13→13:11)
--- NOTE | 2020-04-01 01:20 | CPS ---
RN decreased fio2 to 75%
[2020-04-01 06:19] LABS: International Normalized Ratio 1.3; Prothrombin Time (Protime)PT. 15.8 SECONDS (11.7-14.9)
[2020-04-01] MEDS: Ipratropium/Albuterol Sulfate 3 ML AMPUL.NEB INHALATION ×3 (07:16→20:50)
[2020-04-01] MEDS: Aspirin 81 MG TAB.CHEW PO (08:11)
[2020-04-01] MEDS: Amiodarone 200 MG Tablet PO (08:12)
[2020-04-01] MEDS: Levothyroxine 50 MCG Tablet PO (08:12)
[2020-04-01] MEDS: Furosemide 40 MG Tablet PO (08:12)
[2020-04-01] MEDS: Allopurinol 100 MG Tablet 200 MG PO (08:12)
--- NOTE | 2020-04-01 08:30 | NURSING ---
Pt triggering q 15min-1 hour vs. OK per MD to do VS q 2 Hours due to COVID precautions and DNRCC-NO Intubate status.
--- NOTE | 2020-04-01 08:48 | PN_ITS ---
Patient Problems: Active and Suspected Problems (Last Updated 03/27/20 @ 09:[address] Liliya Pérez MD) Pneumonia (Acute) Atrial fibrillation with RVR (Acute) Acute respiratory failure with hypoxia (Acute) COVID-19 (Acute) SARS pneumonia (Acute) Subjective: Chief complaint: Follow-up after admission for acute on recently chronic hypoxic respiratory failure, bacterial pneumonia, recent Covid pneumonia with sepsis as well as A. fib with RVR. He developed Coumadin induced coagulopathy and significant epistaxis. Patient seen and examined. No acute events overnight. Yesterday afternoon, he developed epistaxis which was difficult to control. He received vitamin K and FFP. Today, he has no more epistaxis. He still significantly short of breath, on BiPAP. BiPAP was taken off to eat and his pulse ox dropped down to 60s. Now, he is back on BiPAP and pulse ox improved. Today, he is afebrile, blood pressure and heart rate are maintained, on BiPAP. - Physical Exam Vitals/I&O's: Vital Signs Temp Pulse Resp BP Pulse Ox 98.5 F 90 36 H 139/68 H 90 04/01/20 08:07 04/01/20 08:07 04/01/20 08:07 04/01/20 08:07 04/01/20 08:07 Oxygen Flow Rate (L/min) 90 Oxygen Delivery Method Bi-pap Weight: 257 lb 0.944 oz Body Mass Index (BMI) 37.9 Intake and Output for Last 24 Hours 03/30/20 03/31/20 04/01/20 23:59 23:59 23:59 Intake Total 851.17 / 851.17 1190.5 / 1340.5 429.33 / 429.33 Output Total 975 / 1255 1530 / 2280 1075 / 1075 Balance -123.83 / -403.83 -339.5 / -939.5 -645.67 / -645.67 General: Alert, Oriented x3, Cooperative, - - Significantly short of breath. HEENT: Atraumatic, PERRLA, EOMI, Normocephalic Oral: Moist Mucosa, No Gingival or Mucosal Lesions/ Ulcerations Neck: Supple, No JVD, Negative Carotid Bruits, Trachea Midline, Thyroid Normal Size and Texture Lungs: Diminished, Rales, Rhonchi, Short of Breath, Tachypneic, - - Decreased breath sounds at the bases, scattered rhonchi. Cardiovascular: Normal S1, Normal S2, No murmurs, PMI Normal, Irregular Rate Abdomen: Bowel Sounds Present, Soft, Non Tender, Non-Distended, No Hepato-spl enomegaly, Obese Extremities: No clubbing, No cyanosis, Edema Skin: No rashes, No breakdown Lymphatic: No Cervical, Supraclavicular, or Inguinal Adenopathy Neurological: Cranial nerves II-XII grossly intact, Neuro grossly intact Psych/Mental Status: Normal Affect, Appropriate Microbiology Past 72 Hours 03/27/20 07:17 Blood Culture (Wb) - Right Hand Blood Culture - Final No growth in 5 days. 03/27/20 06:49 Blood Culture (Wb) - Anticubital Left Blood Culture - Final No growth in 5 days. 03/28/20 03:05 Sputum, Expectorated/Coughed Gram Stain - Final 03/28/20 03:05 Sputum, Expectorated/Coughed Respiratory Culture - Final Mixed normal respiratory fabien. No Streptococcus pneumoniae, beta-hemolytic Streptococcus or Staphylococcus aureus isolated. 03/27/20 09:17 Urine, Clean Catch Urine Culture - Final Culture exhibits no growth. Laboratory Results 03/31/20 06:40: Differential Comment SCANNED, Reactive Lymphocytes 1+ 03/31/20 15:56: Blood Type O NEGATIVE 04/01/20 05:15: PT 15.8 H, INR 1.3 Current Medications Acetaminophen (Acetaminophen 325 Mg Tablet) 650 mg PO Q6H PRN PRN PRN Reason: Pain Score 1-10/Temp > 100.7 F Last Admin: 03/31/20 20:27 Dose: 650 mg Documented by: Al Hydroxide/Mg Hydroxide (Mag Hydrox/Al Hydrox/Simeth 30 Ml Udc) 30 ml PO Q6H PRN PRN PRN Reason: DYSPEPSIA Last Admin: 03/28/20 21:06 Dose: 30 ml Documented by: Albuterol Sulfate (Albuterol 2.5 Mg/3 Ml Vial.Neb.) 2.5 mg INHALATION Q2H PRN PRN PRN Reason: Shortness of Breath/Wheezing Last Admin: 03/30/20 02:15 Dose: 2.5 mg Documented by: Albuterol/Ipratropium (Ipratropium/Albuterol Sulfate 3 Ml Ampul.Neb) 3 ml INHALATION Q4H.RT [facility] Last Admin: 04/01/20 07:16 Dose: 3 ml Documented by: Allopurinol (Allopurinol 100 Mg Tablet) 200 mg PO DAILY [facility] Last Admin: 04/01/20 08:12 Dose: 200 mg Documented by: Amiodarone HCl (Amiodarone 200 Mg Tablet) 200 mg PO DAILY [facility] Last Admin: 04/01/20 08:12 Dose: 200 mg Documented by: Aspirin (Aspirin 81 Mg Tab.Chew) 81 mg PO DAILY [facility] Last Admin: 04/01/20 08:11 Dose: 81 mg Documented by: Atorvastatin Calcium (Atorvastatin Calcium 20 Mg Tablet) 20 mg PO QHS [facility] Last Admin: 03/31/20 20:01 Dose: 20 mg Documented by: Furosemide (Furosemide 40 Mg Tablet) 40 mg PO BIDLX [facility] Last Admin: 04/01/20 08:12 Dose: 40 mg Documented by: Furosemide (Furosemide 20 Mg/2 Ml Vial) 20 mg IV X1 ONE Stop: 04/01/20 09:01 Guaifenesin (Guaifenesin 10 Ml Udc (200mg/10ml)) 10 ml PO Q6H PRN PRN PRN Reason: COUGH/CONGESTION Last Admin: 03/31/20 19:59 Dose: 10 ml Documented by: Cefepime HCl 2 gm/ Sodium (Chloride) 100 mls @ 200 mls/hr IV Q8 [facility] Last Admin: 04/01/20 06:26 Dose: 200 mls/hr Documented by: Vancomycin IV Pharmacy to Dose (1 ea/ Sodium Chloride) 500 mls @ 250 mls/hr IV X1 PRN; Protocol PRN Reason: Rx to Dose Vancomycin HCl (Vancomycin) 1,000 mg in 200 mls @ 200 mls/hr IV Q12H [facility] Last Infusion: 04/01/20 02:30 Dose: Infused Documented by: Sodium Chloride () 250 mls @ 15 mls/hr IV .[id number] PRN PRN Reason: Saline Flush Last Infusion: 04/01/20 06:43 Dose: 0 mls/hr Documented by: Sodium Chloride () 250 mls @ 15 mls/hr IV .[id number] PRN PRN Reason: Additional IVPB Infusion Levothyroxine Sodium (Levothyroxine 50 Mcg Tablet) 50 mcg PO DAILY [facility] Last Admin: 04/01/20 08:12 Dose: 50 mcg Documented by: Metoprolol Succinate (Metoprolol(Xl)Succ 50 Mg Tablet) 50 mg PO [facility] Last Admin: 03/31/20 20:01 Dose: 50 mg Documented by: Ondansetron HCl (Ondansetron 4 Mg/2 Ml Vial) 4 mg IV Q8H PRN PRN PRN Reason: NAUSEA/VOMITING Oxymetazoline HCl (Oxymetazoline 0.05% 1 [place].Btl) 2 spray NASAL X1 PRN PRN Reason: NASAL BLEEDING Potassium Chloride (Potassium Chloride 20 Meq Tablet) [facility] Stop: 04/03/20 08:01 Last Admin: 04/01/20 08:09 Dose: 40 meq Documented by: Senna/Docusate Sodium (Senna/Docusate Sodium 1 Tablet) 2 tablet PO BID PRN PRN PRN Reason: Constipation Sodium Chloride (0.9% Saline Lock 10 Ml Syringe) 10 - 40 ml IV UD PRN PRN Reason: SALINE FLUSH Last Admin: 03/30/20 17:32 Dose: 10 ml Documented by: Tramadol HCl (Tramadol 50 Mg Tablet) 25 mg PO TID PRN PRN Reason: PAIN 1-10/FEVER Last Admin: 03/31/20 20:00 Dose: 25 mg Documented by: Zolpidem Tartrate (Zolpidem Tartrate 5 Mg Tablet) 5 mg PO QHS PRN PRN PRN Reason: INSOMNIA Last Admin: 03/31/20 20:00 Dose: 5 mg Documented by: Medical Necessity - Tobacco Use Smoking Status: Former smoker Assessment/Plan All Active Problems (Last Updated 03/27/20 @ 09:[address] Liliya Pérez MD) Pneumonia (Acute) Atrial fibrillation with RVR (Acute) Acute respiratory failure with hypoxia (Acute) COVID-19 (Acute) SARS pneumonia (Acute) This is an 80 years old male patient presented to the emergency room from the assisted because of worsening shortness of breath and increasing oxygen requirement in context of recent discharge from the hospital after admission for COVID-19 pneumonia and acute hypoxic respiratory failure, found to have sepsis secondary to pneumonia and A. fib with RVR. #1 acute on recently chronic hypoxic respiratory failure: Currently, remains on BiPAP, pulse ox drops down significantly on high flow nasal cannula. Patient looks very short of breath, dyspneic and tachypneic. He is on IV antibiotics as well as intermittent IV Lasix. It is secondary to new bacterial pneumonia in addition to recent COVID-19 pneumonia. Pneumococcal antigen reactive negative. Urine culture showed no growth. Blood culture showed no growth in 48 hours. Sputum culture revealed mixed normal slightly fabien. Patient is on IV cefepime and started on IV vancomycin yesterday. Infectious disease on the case. Plan: Start Mucinex twice daily, vest therapy, repeat CBC and BMP as well as INR tomorrow morning. #2 right lower lobe pneumonia/sepsis: Probably healthcare associated. He is on IV cefepime and vancomycin. Today, he is afebrile but WBC is trending up since yesterday. Cultures reviewed as above. Plan to continue same treatment, repeat chest x-ray tomorrow morning. #3 Coumadin induced coagulopathy/epistaxis: Patient's INR went up to 6.4. Yesterday, patient had significant epistaxis. He received vitamin K and FFP. Today, INR is 1.3. Epistaxis stopped. Plan to repeat CBC and INR tomorrow morning. #4 recent COVID-19 pneumonia: Completed IV remdesivir and Decadron 5 days ago. Plan as above, infectious disease on the case. #5 A. fib with RVR: Heart rate under better control, continue amiodarone and metoprolol for rate control. He is off IV Cardizem drip. INR is 1.3 today, subtherapeutic. Plan to keep holding Coumadin for today because of epistaxis which already stopped, repeat INR tomorrow morning. #6 hypertension: Blood pressure stable, continue metoprolol. #7 chronic lymphocytic leukemia: In remission, stable. #8 gout: Stable, continue allopurinol. #9 chronic diastolic CHF: He is on p.o. Lasix, continue aspirin, statins, beta- blockers. #10 CODE STATUS: DNR CCA, no intubation. #11 DVT prophylaxis: INR is 1.3, SCDs. This note was generated with [employer] software. It may contain incorrect words, spelling, and punctuation that were not noted in checking the note before signing. Inpatient E&M: [id number] [facility] L3
[2020-04-01] MEDS: Furosemide 20 MG/2 ML VIAL IV (09:04)
[2020-04-01] MEDS: LORazepam 2 MG/ML Syringe 0.5 MG IV ×2 (12:22→16:31)
[2020-04-01] MEDS: Oxymetazoline 0.05% 1 SPRAY SPRAY.BTL 2 SPRAY NASAL (13:01)
[2020-04-01] MEDS: guaiFENesin 1,200 MG Tablet 1200 MG PO ×2 (13:09→19:39)
--- NOTE | 2020-04-01 17:11 | NURSING ---
RN saw patient trying to exit bed on monitor and came to room. Pt acutely confused. Pulled off all monitors. Stating his is in the room with him. RN attempted to reorient patient. HR and bp elevated o2 sats decreased. Pt is shaking. notified. Respiratory notified and increase fiol2 to 100%.
[2020-04-01] MEDS: Furosemide 40 MG/4 ML Vial IV (18:12)
[2020-04-01] MEDS: Morphine 2 MG/ML Syringe IV ×3 (18:29→23:32)
--- NOTE | 2020-04-01 19:08 | NURSING ---
PT took of bipap, pulled IV out, very confused and restless. RA sat 37%. MD notified. Ativan and Morphine given per MD order. RN stayed at beside until O2 recovered on BIPAP
[2020-04-01] MEDS: LORazepam 2 MG/ML Syringe 1 MG IV ×2 (19:38→22:32)
[2020-04-01] MEDS: Atorvastatin Calcium 20 MG Tablet PO (19:39)
[2020-04-01] MEDS: traMADol 50 MG Tablet 25 MG PO (19:39)
[2020-04-01] MEDS: Metoprolol(XL)Succ 50 MG Tablet PO (19:39)
[2020-04-01] MEDS: 0.9% Saline Lock 10 ML Syringe IV ×4 (19:40→23:32)
[2020-04-01] MEDS: Zolpidem Tartrate 5 MG Tablet PO (19:49)
[2020-04-01] MEDS: Ondansetron 4 MG/2 ML Vial IV (20:56)
[2020-04-02] VITALS (11 sets, daily range): BP systolic 107–131; BP diastolic 38–75; PULSE 96–116; RESP 12–28; TEMP 36.3–37.3; O2SAT 91–95
[2020-04-02] MEDS: Ipratropium/Albuterol Sulfate 3 ML AMPUL.NEB INHALATION ×4 (00:10→10:35)
[2020-04-02] MEDS: Vancomycin IV 1,000 MG/200 ML BAG 200 MG IV (01:21)
[2020-04-02] MEDS: Morphine 2 MG/ML Syringe IV ×5 (01:22→14:24)
[2020-04-02] MEDS: 0.9% Saline Lock 10 ML Syringe IV ×5 (01:22→14:25)
[2020-04-02] MEDS: LORazepam 2 MG/ML Syringe 1 MG IV ×5 (01:22→14:24)
[2020-04-02 01:36] LABS: Vancomycin, Trough Level 17.8 ug/mL (5.0-15.0)
--- NOTE | 2020-04-02 01:56 | PCM.RX.CS ---
Consult Pharmacy has been consulted to manage selected antiobiotic: Vancomycin Type of Consult: Follow-up Suspected Infection: Pneumonia Prior Doses of Antibiotics Received/Current Regimen: Medications Vancomycin HCl (Vancomycin) 1,000 mg in 200 mls @ 200 mls/hr IV Q12H [facility] Last Admin: 04/02/20 01:21 Dose: 200 mls/hr Documented by: Labs: Sodium 134 mmol/L (136-145) L 03/31/20 06:40 Potassium 3.5 mmol/L (3.5-5.1) 03/31/20 06:40 Chloride 97 mmol/L (98-107) L 03/31/20 06:40 Carbon Dioxide 32.0 mmol/L (21.0-32.0) 03/31/20 06:40 Anion Gap 5 (5-15) 03/31/20 06:40 BUN 23 mg/dL (7-18) H 03/31/20 06:40 Creatinine 1.16 mg/dL (0.70-1.30) 03/31/20 06:40 Est GFR (MDRD) Af Amer 78 mL/min (>60) 03/31/20 06:40 Est GFR (MDRD) Non-Af 64 mL/min (>60) 03/31/20 06:40 BUN/Creatinine Ratio 19.8 RATIO (10-20) 03/31/20 06:40 Glucose 91 mg/dL (74-106) 03/31/20 06:40 Vancomycin Trough 17.8 ug/mL (5.0-15.0) H 04/02/20 00:30 Microbiology: Microbiology 03/27/20 07:17 Blood Culture (Wb) - Right Hand Blood Culture - Final No growth in 5 days. 03/27/20 06:49 Blood Culture (Wb) - Anticubital Left Blood Culture - Final No growth in 5 days. 03/28/20 03:05 Sputum, Expectorated/Coughed Gram Stain - Final 03/28/20 03:05 Sputum, Expectorated/Coughed Respiratory Culture - Final Mixed normal respiratory fabien. No Streptococcus pneumoniae, beta-hemolytic Streptococcus or Staphylococcus aureus isolated. 03/27/20 09:17 Urine, Clean Catch Urine Culture - Final Culture exhibits no growth. 03/27/20 10:15 Urine, Clean Catch Legionella Antigen - Final 03/27/20 10:15 Urine, Clean Catch Streptococcus pneumoniae Antigen (M - Final Weight used for dosin kg Estimated Creatinine Clearance: 49 Goal Trough: 15-20 mcg/mL Pharmacy Plan for Drug Dosing: Pharmacy Service will continue to monitor and adjust dosing as required. Vancomycin trough level of 17.8 returned within goal range of 15-20. Continue current dose and dosing. Follow-Up Labs: Trough Vancomycin - draw 30 minutes before dose due; f/u in 4 days Labs to be done on [date and time ordered]: 04/06/20 0030
[2020-04-02 05:19] LABS: Absolute Lymphocyte Count 3.93 X10^3/uL (0.83-4.51); Absolute Neutrophil Count 9.8 X10^3/uL (2.0-7.7); Basophil# 0.04 X10^3/uL; Basophil% 0.3 % (0-1); Eosinophil# 0.01 X10^3/uL; Eosinophils% 0.1 % (0-5); Hematocrit 39.6 % (40-54); Hemoglobin 12.1 g/dL (13.0-16.5); Lymphocyte # 3.93 X10^3/ul (4.0); Lymphocyte % 27.4 % (19-41); Mean Corp Hgb Conc 30.6 g/dL (32-36); Mean Corpuscular Hgb 31.7 pg (27.0-32.0); Mean Corpuscular Volume 103.7 fL (80-94); Mean Platelet Vol. 10.4 fl (6.2-12.0); Monocyte# 0.47 X10^3/uL; Monocyte% 3.3 % (0-10); NRBC Flagged by Analyzer 0 % (0-5); Neutrophil # 9.75 X10^3/uL (2.7-7.7); Neutrophil % 68.1 % (47-70); POSITIVE COUNT YES; Platelet Count 90 K/mm3 (150-450); RBC Distribution Width CV 14.9 % (11.6-14.6); RBC Distribution Width SD 56.9 fl (35.1-43.9); Red Blood Count 3.82 M/mm3 (4.6-6.2); White Blood Count 14.3 K/mm3 (4.4-11.0)
[2020-04-02 05:25] LABS: Differential Indicated SCAN CRITERIA MET
[2020-04-02 05:33] LABS: International Normalized Ratio 1.6; Prothrombin Time (Protime)PT. 18.3 SECONDS (11.7-14.9)
[2020-04-02 05:36] LABS: Anion Gap 6 (5-15); BUN 39 mg/dL (7-18); BUN/Creat Ratio 22.4 RATIO (10-20); Chloride 96 mmol/L (98-107); Creatinine, Serum 1.74 mg/dL (0.70-1.30); EST Glomerular Filtration Rate 40 mL/min (>60); Est Glom Filt Rate - Afr Amer 49 mL/min (>60); Estimated Creatinine Clearance 32.73 ml/min; Glucose 123 mg/dL (74-106); Potassium 3.9 mmol/L (3.5-5.1); Sodium Level 135 mmol/L (136-145)
--- NOTE | 2020-04-02 05:55 | RAD_ITS ---
STUDY: X-RAY CHEST REASON FOR EXAM: Male, 80 years old. SOB -- COVID + TECHNIQUE: Single AP portable view of the chest. COMPARISON: March 30, 2020 FINDINGS: There is worsening of the opacity in the lower lobes and in the left upper lobe. There is elevation of the hemidiaphragms. There is moderate cardiomegaly. Normal mediastinum and erin. Normal visualized pulmonary arteries. There is atherosclerotic calcification of the aortic arch with tortuosity. There are diffuse degenerative changes of the visualized thoracic spine. Normal visualized ribs, clavicles, and shoulders. There is no demonstrated abnormality of the visualized soft tissue structures of the upper abdomen. RAD/Chest 1 View (Portable) IMPRESSION: Multifocal infiltrates worsening since prior study. Cardiomegaly cannot exclude superimposed edema. Electronically Signed: Shala Castillo MD at 6:36 EST Tel , Service support ,
--- NOTE | 2020-04-02 09:06 | PCM.PROGNOTE ---
Patient Problems: Active and Suspected Problems (Last Updated 03/27/20 @ 09:[address] Liliya Pérez MD) Pneumonia (Acute) Atrial fibrillation with RVR (Acute) Acute respiratory failure with hypoxia (Acute) COVID-19 (Acute) SARS pneumonia (Acute) Subjective: Chief complaint: Follow-up after admission for acute on recently chronic hypoxic respiratory failure, bacterial pneumonia, recent Covid pneumonia with sepsis as well as A. fib with RVR, epistaxis and Coumadin induced coagulopathy. Patient seen and examined. This morning, he is very sleepy and lethargic, difficult to arouse. Remains on BiPAP, short of breath and dyspneic. He has been receiving IV Ativan as needed as well as IV morphine. He is afebrile, tachycardic, blood pressure is maintained, dyspneic and tachypneic, on BiPAP with FiO2 of 100%. - Physical Exam Vitals/I&O's: Vital Signs Temp Pulse Resp BP Pulse Ox 99.2 F H 96 22 H 107/65 93 04/02/20 04:25 04/02/20 06:32 04/02/20 06:32 04/02/20 04:25 04/02/20 06:32 Oxygen Flow Rate (L/min) 90 Oxygen Delivery Method Bi-pap Weight: 257 lb 0.944 oz Body Mass Index (BMI) 37.9 Intake and Output for Last 24 Hours 03/31/20 04/01/20 04/02/20 23:59 23:59 23:59 Intake Total 1190.5 / 1340.5 1074.33 / 1074.33 352.25 / 352.25 Output Total 1530 / 2280 2950 / 2950 200 / 200 Balance -339.5 / -939.5 -1875.67 / -1875.67 152.25 / 152.25 General: - - Sleepy, difficult to arouse, lethargic. Short of breath, dyspneic. HEENT: Atraumatic, PERRLA, EOMI, Normocephalic Oral: Moist Mucosa, No Gingival or Mucosal Lesions/ Ulcerations Neck: Supple, No JVD, Negative Carotid Bruits, Trachea Midline, Thyroid Normal Size and Texture Lungs: No wheeze, Diminished, Rales, Rhonchi, Short of Breath, - - Decubitus breath sounds bilateral, bilateral rhonchi. Cardiovascular: Normal S1, Normal S2, PMI Normal, Irregular Rate, Tachycardic Abdomen: Bowel Sounds Present, Soft, Non Tender, Non-Distended, No Hepato-splenomegaly, Obese Extremities: No clubbing, No cyanosis, Edema Skin: No rashes, No breakdown Lymphatic: No Cervical, Supraclavicular, or Inguinal Adenopathy Neurological: Cranial nerves II-XII grossly intact, - - Lethargic, not following commands. Psych/Mental Status: - - Unable to assess. Microbiology Past 72 Hours 03/27/20 07:17 Blood Culture (Wb) - Right Hand Blood Culture - Final No growth in 5 days. 03/27/20 06:49 Blood Culture (Wb) - Anticubital Left Blood Culture - Final No growth in 5 days. 03/28/20 03:05 Sputum, Expectorated/Coughed Gram Stain - Final 03/28/20 03:05 Sputum, Expectorated/Coughed Respiratory Culture - Final Mixed normal respiratory fabien. No Streptococcus pneumoniae, beta-hemolytic Streptococcus or Staphylococcus aureus isolated. Laboratory Results 04/02/20 00:30: Vancomycin Trough 17.8 H 04/02/20 04:35: WBC 14.3 H, RBC 3.82 L, Hgb 12.1 L, Hct 39.6 L, MCV 103.7 H, MCH 31.7, MCHC 30.6 L, RDW Std Deviation 56.9 H, RDW Coeff of Timothy 14.9 H, Plt Count 90 L, MPV 10.4, Immature Gran % (Auto) 0.800, Neut % (Auto) 68.1, Lymph % (Auto) 27.4, Rhea % (Auto) 3.3, Eos % (Auto) 0.1, Baso % (Auto) 0.3, Absolute Neuts (auto) 9.8 H, Absolute Lymphs (auto) 3.93, Nucleated RBC % 0 04/02/20 04:35: PT 18.3 H, INR 1.6 04/02/20 04:35: Sodium 135 L, Potassium 3.9, Chloride 96 L, Carbon Dioxide 33.0 H, Anion Gap 6, BUN 39 H, Creatinine 1.74 H, Estim Creat Clear Calc 32.73, Est GFR (MDRD) Af Amer 49 L, Est GFR (MDRD) Non-Af 40 L, BUN/Creatinine Ratio 22.4 H, Glucose 123 H, Calcium 9.0 Clinical Impression(s) from Imaging Studies Chest X-Ray 04/02/20 05:55 IMPRESSION: Multifocal infiltrates worsening since prior study. Cardiomegaly cannot exclude superimposed edema. Electronically Signed: Shala Castillo MD at 6:36 EST Tel , Service support , Current Medications Acetaminophen (Acetaminophen 325 Mg Tablet) 650 mg PO Q6H PRN PRN PRN Reason: Pain Score 1-10/Temp > 100.7 F Last Admin: 03/31/20 20:27 Dose: 650 mg Documented by: Al Hydroxide/Mg Hydroxide (Mag Hydrox/Al Hydrox/Simeth 30 Ml Udc) 30 ml PO Q6H PRN PRN PRN Reason: DYSPEPSIA Last Admin: 03/28/20 21:06 Dose: 30 ml Documented by: Albuterol Sulfate (Albuterol 2.5 Mg/3 Ml Vial.Neb.) 2.5 mg INHALATION Q2H PRN PRN PRN Reason: Shortness of Breath/Wheezing Last Admin: 03/30/20 02:15 Dose: 2.5 mg Documented by: Albuterol/Ipratropium (Ipratropium/Albuterol Sulfate 3 Ml Ampul.Neb) 3 ml INHALATION Q4H.RT [facility] Last Admin: 04/02/20 06:32 Dose: 3 ml Documented by: Allopurinol (Allopurinol 100 Mg Tablet) 200 mg PO DAILY [facility] Last Admin: 04/01/20 08:12 Dose: 200 mg Documented by: Amiodarone HCl (Amiodarone 200 Mg Tablet) 200 mg PO DAILY [facility] Last Admin: 04/01/20 08:12 Dose: 200 mg Documented by: Aspirin (Aspirin 81 Mg Tab.Chew) 81 mg PO DAILY [facility] Last Admin: 04/01/20 08:11 Dose: 81 mg Documented by: Atorvastatin Calcium (Atorvastatin Calcium 20 Mg Tablet) 20 mg PO QHS [facility] Last Admin: 04/01/20 19:39 Dose: 20 mg Documented by: Furosemide (Furosemide 40 Mg/4 Ml Vial) 40 mg IV Q8 [facility] Guaifenesin (Guaifenesin 10 Ml Udc (200mg/10ml)) 10 ml PO Q6H PRN PRN PRN Reason: COUGH/CONGESTION Last Admin: 03/31/20 19:59 Dose: 10 ml Documented by: Guaifenesin (Guaifenesin 1,200 Mg Tablet) 1,200 mg PO BID [facility] Last Admin: 04/01/20 19:39 Dose: 1,200 mg Documented by: Cefepime HCl 2 gm/ Sodium (Chloride) 100 mls @ 200 mls/hr IV Q8 [facility] Last Infusion: 04/02/20 04:53 Dose: Infused Documented by: Vancomycin IV Pharmacy to Dose (1 ea/ Sodium Chloride) 500 mls @ 250 mls/hr IV X1 PRN; Protocol PRN Reason: Rx to Dose Vancomycin HCl (Vancomycin) 1,000 mg in 200 mls @ 200 mls/hr IV Q12H [facility] Last Infusion: 04/02/20 02:21 Dose: Infused Documented by: Sodium Chloride () 250 mls @ 15 mls/hr IV .[id number] PRN PRN Reason: Saline Flush Last Infusion: 04/02/20 06:20 Dose: 0 mls/hr Documented by: Sodium Chloride () 250 mls @ 15 mls/hr IV .[id number] PRN PRN Reason: Additional IVPB Infusion Levothyroxine Sodium (Levothyroxine 50 Mcg Tablet) 50 mcg PO DAILY [facility] Last Admin: 04/01/20 08:12 Dose: 50 mcg Documented by: Lorazepam (Lorazepam 2 Mg/Ml Syringe) 1 mg IV QHS PRN PRN PRN Reason: AGITATION Lorazepam (Lorazepam 2 Mg/Ml Syringe) 1 mg IV Q2H PRN PRN PRN Reason: AGITATION Last Admin: 04/02/20 06:18 Dose: 1 mg Documented by: Metoprolol Succinate (Metoprolol(Xl)Succ 50 Mg Tablet) 50 mg PO [facility] Last Admin: 04/01/20 19:39 Dose: 50 mg Documented by: Morphine Sulfate (Morphine 2 Mg/Ml Syringe) 2 mg IV Q2H PRN PRN PRN Reason: restless Last Admin: 04/02/20 06:18 Dose: 2 mg Documented by: Ondansetron HCl (Ondansetron 4 Mg/2 Ml Vial) 4 mg IV Q8H PRN PRN PRN Reason: NAUSEA/VOMITING Last Admin: 04/01/20 20:56 Dose: 4 mg Documented by: Oxymetazoline HCl (Oxymetazoline 0.05% 1 Humble Humble.Btl) 2 spray NASAL X1 PRN PRN Reason: NASAL BLEEDING Last Admin: 04/01/20 13:01 Dose: 2 spray Documented by: Potassium Chloride (Potassium Chloride 20 Meq Tablet) 40 meq PO DAILYCM JEROME Stop: 04/03/20 08:01 Last Admin: 04/01/20 08:09 Dose: 40 meq Documented by: Senna/Docusate Sodium (Senna/Docusate Sodium 1 Tablet) 2 tablet PO BID PRN PRN PRN Reason: Constipation Sodium Chloride (0.9% Saline Lock 10 Ml Syringe) 10 - 40 ml IV UD PRN PRN Reason: SALINE FLUSH Last Admin: 04/02/20 06:17 Dose: 10 ml Documented by: Tramadol HCl (Tramadol 50 Mg Tablet) 25 mg PO TID PRN PRN Reason: PAIN 1-10/FEVER Last Admin: 04/01/20 19:39 Dose: 25 mg Documented by: Zolpidem Tartrate (Zolpidem Tartrate 5 Mg Tablet) 5 mg PO QHS PRN PRN PRN Reason: INSOMNIA Last Admin: 04/01/20 19:49 Dose: 5 mg Documented by: Medical Necessity - Tobacco Use Smoking Status: Former smoker Assessment/Plan All Active Problems (Last Updated 03/27/20 @ 09:[address] Liliya Pérez MD) Pneumonia (Acute) Atrial fibrillation with RVR (Acute) Acute respiratory failure with hypoxia (Acute) COVID-19 (Acute) SARS pneumonia (Acute) This is an 80 years old male patient [facility] because of worsening shortness of breath and increasing oxygen requirement in context of recent discharge from the hospital after admission for COVID-19 pneumonia and acute hypoxic respiratory failure, found to have sepsis secondary to pneumonia and A. fib with RVR. He developed epistaxis due to Coumadin induced coagulopathy and his respiratory status has been declining, has been on BiPAP of 100% FiO2. #1 acute on recently chronic hypoxic respiratory failure: He remains on BiPAP, FiO2 100%. He is not doing so well. This morning, he is sleepy and lethargic, difficult to arouse. He has been on IV Ativan and morphine as needed for comfort. Today, he is afebrile, tachycardic, blood pressure is maintained, BiPAP with FiO2 100%. He has been on IV cefepime and vancomycin as well as IV Lasix. Pneumococcal antigen reactive negative. Urine culture showed no growth. Blood culture showed no growth in 5 days s. Sputum culture revealed mixed normal slightly fabien. Repeat chest x-ray from today revealed worsening bilateral multifocal lung infiltrate. Plan: Increase IV Lasix, continue IV antibiotics. #2 right lower lobe pneumonia/sepsis: Probably healthcare associated. Remained on IV cefepime and vancomycin. Today, he is afebrile, WBC is trending down. All over, respiratory status is declining, remains on BiPAP as above. Cultures reviewed as above. Plan to continue antibiotics, increase IV diuresis. #3 encephalopathy: Currently, patient is lethargic, sleepy, difficult to arouse. Probably it is multifactorial secondary to hypoxemia in addition to IV morphine and Ativan that he has been receiving. He opens his eyes to strong verbal stimuli. No focal deficit on exam. Plan to monitor. #4 acute on chronic diastolic CHF: Chest x-ray showed worsening bilateral focal infiltrate versus pulmonary vascular congestion or both. Patient has been on IV Lasix. He had 2D echocardiogram on April, that showed ejection fraction of 55%,, RV systolic pressure was not assessed. His creatinine started to go up. Plan: Increase IV Lasix, input output chart, repeat BMP tomorrow morning. #5 Coumadin induced coagulopathy/epistaxis: Today's INR is 1.6. Patient received vitamin K and FFP. At this time, epistaxis resolved. Hemoglobin and hematocrit are stable. #6 recent COVID-19 pneumonia: Completed IV remdesivir and Decadron 5 days ago. Plan as above, infectious disease on the case. #5 A. fib with RVR: Currently, heart rate around 100, blood pressure is maintained. He is on amiodarone and metoprolol for rate control. He is off IV Cardizem drip. INR is 1.6 today, subtherapeutic. Plan to keep holding Coumadin for today because of epistaxis which already stopped, repeat INR tomorrow morning. #6 hypertension: Blood pressure stable, continue metoprolol. #7 chronic lymphocytic leukemia: In remission, stable. #8 gout: Stable, continue allopurinol. #9 CODE STATUS: DNR CCA, no intubation. #10 DVT prophylaxis: INR is 1.6, SCDs. This note was generated with [employer] dictation software. It may contain incorrect words, spelling, and punctuation that were not noted in checking the note before signing. Inpatient E&M: 88010 Subs Hosp L3
[2020-04-02] MEDS: Allopurinol 100 MG Tablet 200 MG PO (09:22)
[2020-04-02] MEDS: guaiFENesin 1,200 MG Tablet 1200 MG PO (09:22)
[2020-04-02] MEDS: Aspirin 81 MG TAB.CHEW PO (09:22)
[2020-04-02] MEDS: Levothyroxine 50 MCG Tablet PO (09:22)
[2020-04-02] MEDS: Amiodarone 200 MG Tablet PO (09:23)
--- NOTE | 2020-04-02 11:10 | CASEMGMT ---
Addendum entered by Desire Rosas 04/02/20 13:09: As documented, RN called [facility] and faxed clinical information. At this time however, it is anticipated pt will stay here in the hospital. [facility] let Ana know. GALINA Schultz Original Note: Pt will be made hospice today as per physician. SW let RN know if family would like to speak w/SW, SW is available. Family in room at present. GALINA Schultz
--- NOTE | 2020-04-02 11:33 | NURSING ---
family leaving floor- states they need to go get some lunch.
--- NOTE | 2020-04-02 12:33 | NURSING ---
per pt spouse- states :we are okay with Hospice being consulted as long as they can manage his symptoms here. we are afraid it would be too difficult on him to transfer him anywhere.
--- NOTE | 2020-04-02 12:52 | NURSING ---
spoke with Mily Guillen at hospice- information faxed over.
--- NOTE | 2020-04-02 17:27 | EXP.PCM_ITS ---
Preliminary Cause of Acute respiratory failure/ arrest followed by asystole. Date of Admission: 03/27/20 Date of : 04/02/20 - Principle Diagnosis #1 Acute on recently chronic hypoxic respiratory failure. #2 Bilateral COVID-19 Pneumonia. #3 Rt lower lobe secondary bacterial pneumonia. #4 Acute on chronic diastolic CHF. #5 A-fib with RVR. Problem List: Active and Suspected Problems (Last Updated 03/27/20 @ 09:[address] Liliya Pérez MD) 1- Paroxysmal A-fib. 2- Hypertension. 3- Chronic lymphocytic leukemia. 4- chronic CHF. Hospital Course This is an 80 yrs old male patient presented to the ED because of worsening SOB and increasing oxygen requirement incontext of recent discharge from the hospital after admission for COVID-19 pneumonia. He completed treatment for COVID-19 with IV decadron and IV remdesivir, got better and he was discharged on 03/23/2020 to assisted living on home oxygen. Up on arrival to ED for this admission, he was dyspniec and tachypniec and was put on BIPAP. His CXR revealed probable Rt lower lobe infiltrate. He was admitted to COVID-19 cohort unit, was started on IV cefepime. He went in to A-fib with RVR and he was started on IV cardizem drip. He was continued on PO lasix for H/O CHF. Next morning, pt felt better, his oxygen requirement decreased and was only on 2 L of oxygen. The next day, patient's respiratory status start to decline. He required up to 10 L of o xygen and was tachypneic. He was started on BIPAP. He continued in A-fib with RVR. Antibiotic coverage was broadened and IV vancomycin started. Repeat CXR showed worsening infiltrate versus congestion. He was started on intermittent IV lasix for probable acute on chronic diastolic CHF. His respiratory status continued to decline and remained on BIPAP with increasing FiO2 up to 100%. Another repeat CXR showed significantly worse infiltrate bilaterally. He was put on IV lasix, continued on IV Antibiotics and BIPAP. On the day of , patient started to be somnolent, lethargic and barely responding. Patient's family including and daughter arrived. I had a discussion with them regarding the patient's current condition. I informed the family that the pt is not doing good, in very critical condition and on full support by BIPAP with 100% FiO2 and I informed them the his chances of recovery is deteriorating. I opened a discussion about hospice and pallaitive care and mentioned that she knows what hospice is and she is open to it. She stated that she does not want her to suffer or be in pain. She requested that she will speak to couple of other family members before she take final decision. Shortly after, decided to have hospice and palliative care team evaluate the pt. Hospice team consulted and spoke to the family over the phone. Family agreed to withdraw care from the pt. They preferred that he stay in the hospital rather than transferring him to hospice facility. When the family was ready, BIPAP mask was taken off and shortly after, he has no breathing, no pulse and he . was announced at 14:57 on March,. Inpatient E&M: 21843 Disch Hosp
== END 2020-04-02 16:11 | DRG 871 ==
LOC: ED 07:28 → MS2 08:34
PROVIDERS: Admitting Provider Hospitalist; Emergency Provider Emergency Medicine; PCP Nurse Practitioner Adult Health; Visit Provider Hospitalist
DX: A41.89 Other specified sepsis (principal); U07.1 COVID-19; J12.89 Other viral pneumonia; J96.21 Acute and chronic respiratory failure with hypoxia; J15.9 Unspecified bacterial pneumonia; I50.33 Acute on chronic diastolic (congestive) heart failure; C91.11 Chronic lymphocytic leukemia of B-cell type in remission; D68.32 Hemorrhagic disorder due to extrinsic circulating anticoagulants; G93.40 Encephalopathy, unspecified; I11.0 Hypertensive heart disease with heart failure; I48.0 Paroxysmal atrial fibrillation; R04.0 Epistaxis; T45.515A Adverse effect of anticoagulants, initial encounter; Y92.230 Patient room in hospital as the place of occurrence of the external cause; M10.9 Gout, unspecified; Z66 Do not resuscitate; Z79.01 Long term (current) use of anticoagulants; Z79.890 Hormone replacement therapy; Z99.81 Dependence on supplemental oxygen; Z79.899 Other long term (current) drug therapy; Z87.891 Personal history of nicotine dependence
CPT/HCPCS: 36415; 71045; 80048; 80053; 80202; 81001; 82803; 83605; 83880; 84484; 85025; 85610; 85730; 86900; 86901; 87040; 87070; 87086; 87205; 87449; 93005; 94002; 94003; 94640; 94667; 97110; 97165; 97530; 99251; 99285; J7040; J7050; P9017; A4216; G0463; J1940; J2405; J3490